=== PATIENT | male | born 1960 | race American Indian/Alaskan Native ===

== ENCOUNTER 2016-12-26 06:55 | Inpatient (IN) | payer MEDICAID ==
[2016-12-26] MEDS ORDERED: VITAMIN B-1 100 MG, FOLVITE 1 MG, INFUVITE 10 ML in NACL 0.9% 1000 ML 1,000 ML IV ONE (07:36)
[2016-12-26] MEDS ORDERED: ATIVAN IV ONE (07:36)
--- NOTE | 2016-12-26 07:52 | XRay Report ---
AP CHEST: HISTORY: Hypertension The lungs are hyperinflated consistent with moderate emphysema. No obvious infiltrate, mass, pleural effusion or pneumothorax. Normal heart and mediastinal structures. Normal bony thorax. IMPRESSION: Emphysema unchanged since 11/29/15. No acute process noted.
[2016-12-26 08:05] LABS: Hematocrit 42.6 % (35.5-45.6); Hemoglobin 14.4 gm/dl (11.8-15.2); Mean Corpuscular HGB Conc 34 % (32-34); Mean Corpuscular Hemoglobin 32 pg (28-32); Mean Corpuscular Volume 96 fl (84-94); Platelet Count 159 K/mm3 (140-440); Red Blood Count 4.45 M/mm3 (3.65-5.03); Red Cell Distribution Width 14.6 % (13.2-15.2); White Blood Count 8.1 K/mm3 (4.5-11.0)
[2016-12-26 08:18] LABS: INR 0.96 (0.87-1.13)
[2016-12-26 08:19] LABS: Partial Thromboplastin Time 27.5 Sec. (24.2-36.6)
[2016-12-26] MEDS ORDERED: NACL 0.9% 1000 ML 1,000 ML IV ONE ×2 (08:30→11:16)
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
[2016-12-26] MEDS ORDERED: D50W (25GM) IV ONE (08:59)
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
[2016-12-26 09:19] LABS: Blastocytes % (Manual) 0 %
[2016-12-26 09:20] LABS: Basophils % (Manual) 0 % (0.0-1.8); Elliptocytes Few; Eosinophils % (Manual) 0 % (0.0-4.3); Poikilocytosis 1+; Total Cells Counted Percent 0
[2016-12-26 09:21] LABS: Alanine Aminotransferase 58 units/L (7-56); Albumin 4.5 g/dL (3.9-5); Albumin/Globulin Ratio 1.1 %; Alkaline Phosphatase 69 units/L (35-129); Anion Gap 31 mmol/L; Blood Urea Nitrogen 15 mg/dL (9-20); Calcium 8.7 mg/dL (8.4-10.2); Carbon Dioxide 16 mmol/L (22-30); Chloride 102.6 mmol/L (98-107); Diff Status Complete; Glucose 95 mg/dL (75-100); Hypochromasia Rare; Platelet Estimate Consistent w Auto; Potassium 4.7 mmol/L (3.6-5.0); Sodium 145 mmol/L (137-145); Stomatocytes 1+; Target Cells 1+; Total Protein 8.6 g/dL (6.3-8.2)
[2016-12-26] MEDS ORDERED: KEPPRA 1,000 MG/NS 0.75% 100ML 1,000 MG/100 ML BAG IV ONE (09:25)
[2016-12-26] MEDS ORDERED: ROCEPHIN/NS 1 GM/50 ML 1 GM/50 ML BAG IV ONE (09:26)
[2016-12-26 09:33] LABS: Urine Drugs of Abuse Note Disclamer
[2016-12-26] MEDS ORDERED: D5NS 1,000 ML IV SCH (10:00)
[2016-12-26] MEDS ORDERED: FLEXERIL PO PRN (10:01)
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
[2016-12-26 10:25] LABS: Bilirubin,Urine NEG (Negative); Blood,Urine SM (Negative); Ketones,Urine 20 mg/dL (Negative); Leukocyte Esterase,Urine NEG (Negative); Mucus,Urine FEW /HPF; Nitrite,Urine NEG (Negative); Protein,Urine <15 mg/dL mg/dL (Negative); RBC,Urine < 1.0 /HPF (0.0-6.0); Urobilinogen,Urine < 2.0 mg/dL (<2.0)
--- NOTE | 2016-12-26 10:38 | Admit Criteria Form ---
Admission Criteria Documentation: GENERAL ADMISSION CRITERIA (Place 'X' for any and all applicable criteria): Admission is indicated for ANY ONE of the following: [X ]I. Hemodynamic instability as indicated by ANY ONE of the following(1)(2 )(3)(4)(5): [ ]a) Vital sign abnormality not readily corrected by appropriate treatment within 12 to 24 hours indicated by ANY ONE of the following: [ ]i) Hypotension [ ]ii) Symptomatic Tachycardia unresponsive to treatment (eg , analgesia, fluids, sedation as indicated) [ ]iii) Orthostatic vital sign changes unresponsive to treatment (eg, fluids) [X ]b) Vital sign abnormality that is severe indicated by ANY ONE of the following: [X ]i) Inadequate perfusion indicated by ANY ONE of the following: [X ]1) Lactic acidosis (greater than 2 mmol/L) [ ]2) New abnormal capillary refill (greater than 3 seconds) [ ]3) Other metabolic acidosis (arterial pH less than 7.35) not otherwise explained [ ]4) Reduced urine output [ ]5) Altered mental status [ ]6) Myocardial Ischemia [ ]v) Mean arterial pressure[A] less than 60 mm Hg [ ]vi) Mean arterial pressure[A] less than 70 mm Hg after 30 minutes of appropriate treatment (eg, fluid resuscitation) [ ]vii) IV inotropic or vasopressor medication required to maintain adequate blood pressure or perfusion [ ]viii) Sustained heart rate greater than 120 beats per minute in adult or child 6 years or older[B]] [ ]II. Hypertension requiring inpatient treatment as indicated by ANY ONE of the following(6)(7)(8): [ ]a) SBP greater than 220 mm Hg or DBP greater than 120 mm Hg despite treatment [ ]b) SBP greater than 140 mm Hg or DBP greater than 100 mm Hg with evidence of acute end organ damage as indicated by ANY ONE of the following: [ ]i) Encephalopathy [ ]ii) Acute renal failure as indicated by new onset of ANY ONE of the following(9)(10)(11)(12)(13): [ ]1) A 3-fold rise in serum creatinine from baseline [ ]2) Serum creatinine greater than 4 mg/dL ( 354 micromoles/L) with acute rise greater than 0.5 mg/dL (44.2 micromoles/L) [ ]3) Reduction of more than 75% in estimated glomerular filtration rate from baseline [ ]4) Estimated glomerular filtration rate less than 35 mL/min/1.73m2 (0.59 mL/sec/1.73m2) in child up to 18 years of age [ ]5) Cessation of urine output indicated by ALL of the following: [ ]A. Adequate volume status [ ]B. Inadequate urine output as indicated by ANY ONE of the following: [ ]a. Urine output less than 0.3 mL/kg/hr for 24 hours [ ]b. Anuria (urine output less than 0.1 mL/kg/hr) for 12 hours [ ]iii) Aortic dissection [ ]iv) Myocardial ischemia [ ]v) Left ventricular heart failure [ ]vi) Retinal hemorrhage [ ]vii) Other significant finding [ ]c) Hypertension in child requiring inpatient treatment as indicated by ALL of the following(14)(15)(16): [ ]i) Outpatient treatment not effective, not available, or not appropriate [ ]ii) SBP or DBP greater than 95th percentile for age [ ]iii) Evidence of acute end organ damage as indicated by ANY ONE of the following: [ ]1) Altered mental status [ ]2) Acute renal failure as indicated by new onset of ANY ONE of the following(9)(10)(11)(12)(13): [ ]A. A 3-fold rise in serum creatinine from baseline [ ]B. Serum creatinine greater than 4 mg/dL (354 micromoles/L) with acute rise greater than 0.5 mg/dL (44.2 micromoles/L) [ ]C. Reduction of more than 75% in estimated glomerular filtration rate from baseline [ ]D. Estimated glomerular filtration rate less than 35 mL/min/1.73m2 (0.59 mL/sec/1.73m2)in child up to 18 years of age [ ]E. Cessation of urine output indicated by ALL of the following: [ ]a. Adequate volume status [ ]b. Inadequate urine output as indicated by ANY ONE of the following: [ ]1) Urine output less than 0.3 mL/kg/hr for 24 hours [ ]2) Anuria (urine output less than 0.1 mL/kg/hr) for 12 hours [ ]3) Severe headache [ ]4) Visual disturbance [ ]5) Retinal hemorrhage [ ]6) Other significant finding [ ]III. Acute cardiac or peripheral ischemia as indicated by ANY ONE of the following: [ ]a) Acute coronary syndrome(17)(18) [ ]b) Acute peripheral ischemia (eg, pulseless, cool, mottled, or cyanotic extremity)(19) [ ]IV. Cardiac arrhythmias or findings of immediate concern indicated by ANY ONE of the following(20)(21): [ ]a) Heart rhythms that are inherently dangerous or unstable indicated by ANY ONE of the following(22)(23)(24): [ ]i) Resuscitated ventricular fibrillation or cardiac arrest [ ]ii) Ventricular escape rhythm [ ]iii) Sustained ventricular tachycardia (30 seconds or more of ventricular rhythm at greater than 100 beats per minute) [ ]iv) Nonsustained ventricular tachycardia and ANY ONE of the following: [ ]1) Suspected cardiac ischemia as cause or consequence of ventricular tachycardia [ ]2) In setting of acute myocarditis [ ]b) Unstable cardiac conduction defects indicated by ANY ONE of the following(24)(25)(26): [ ]i) Type II second-degree atrioventricular block [ ]ii) Third-degree atrioventricular block [ ]iii) New-onset left bundle branch block with suspected myocardial ischemia [ ]c) Any heart rhythm and ANY ONE of the following(22)(23)(27)(28)( 29): [ ] i) Continuous long-term ECG monitoring needed (eg, initiation of drug requiring monitoring for more than 24 hours) [ ] ii) Patient has automatic implanted cardioverter defibrillator that is repeatedly firing, malfunctioning, or in need of immediate adjustment of settings beyond the scope of ambulatory or observation care. [ ]d) Heart rhythms of concern due to ANY ONE of the following: [ ]i) Hypotension [ ]ii) Respiratory distress [ ]iii) Association with other significant symptoms (eg, bradycardia with syncope or ongoing dizziness, supraventricular tachycardia with chest pain) (27)(28) (30) [ ] V. Severe heart failure as indicated by ANY ONE of the following ( 31)(32): [ ]a) Respiratory distress [ ]b) Hypotension [ ]c) Anasarca (refractory to outpatient therapy) [ ]d) Cardiac arrhythmias of immediate concern [ ]e) Myocardial ischemia [ ]. Respiratory abnormalities, including ANY ONE of the following(33)(34) (35)(36): [ ]a) Respiratory rate greater than 30 breaths per minute unresponsive to treatment [A] [ ]b) New saturation of arterial oxygen less than 90% [ ]c) New partial pressure of carbon dioxide greater than 44 mm Hg ( 5.9 kPa) [ ]d) Supplemental oxygen or respiratory treatments needed that are new or not performable at other levels of care [ ]e) New-onset cyanosis [ ]f) Inability to protect airway [ ]g) Chronic lung disease with severe deterioration (not responsive to emergency and observation care treatment as appropriate) as indicated by ANY ONE of the following(34)(36 ): [ ]i) SaO2 5% below baseline in patient with chronic hypoxemia [ ]ii) New requirement for supplemental oxygen to keep SaO2 at baseline or acceptable level [ ]iii) Required supplemental oxygen performable only in acute inpatient setting [ ]iv) Severe airflow or ventilation abnormalities [ ]v) Previously mobile patient unable to walk between rooms [ ]vi Inability to eat or sleep due to dyspnea [ ]vii) Rapid rate of exacerbation onset [ ]viii) Altered mental status ]VII. Severe airflow or ventilation abnormalities (not responsive to emergency and observation care treatment as appropriate) as indicated by ANY ONE of the following(33)(34)(35)(37): [ ]a) PCO2 greater than 42 mm Hg (5.6 kPa) and pH less than 7.35 (new ) [ ]b) Documented PCO2 increased more than 5 mm Hg (0.7 kPa) from disease baseline [ ]c) Airflow measurements [B] less than 60% of previous best or predicted (eg, peak expiratory flow rate less than 300 L/minute) despite intensive emergent treatment [C] [ ]d) Required respiratory treatments that are performable only in acute inpatient setting [ ]VIII. Impending or actual respiratory arrest ( Also use Respiratory Failure GRG for severe respiratory disease and long-term mechanical ventilation patients) [ ]IX. Neurologic abnormalities, including ANY ONE of the following: [ ]a) New findings that suggest ANY ONE of the following: [ ]i) EQUIPMENT INSTALLER infection(38) [ ]ii) Cerebral bleeding, ischemia, or vasospasm(39)(40) [ ]iii) Increased intracranial pressure, hydrocephalus, or cerebral edema(41)(42)(43) [ ]iv) Spinal cord injury(44) [ ]b) Uncontrolled seizures(45) [ ]c) New-onset coma (eg, Beaumont coma scale score less than 9) or unexplained abnormal mental status (eg, Traci coma scale score less than 14) [D](41)(46)(47) [ ]X. New-onset severe neurologic findings requiring inpatient care; examples include(42)(48)(49): [ ]a) Papilledema [ ]b) Cerebral edema [ ]c) Mass effect on CT scan [ ]XI. Suspected acute intra-abdominal process with peritoneal signs, abdominal mass, or similar findings (50)(51)(52) [ ]XII. Severe physiologic disorder remaining after emergency or observation level care (as appropriate) as indicated by ANY ONE of the following (53): [ ]a) Significant dehydration [ ]b) Diabetic ketoacidosis [ ]c) Hyperglycemic hyperosmolar state (eg, osmolality greater than 320 mOsm/kg (mmol/kg) [ ]d) Hypoglycemia [ ]e) Other (new) acid-base disorder with pH less than 7.35 or greater than 7.5(54) [ ]f) Thyroid storm (55) [ ]g) Myxedema coma (55) [ ]XIII. Abdominal abnormalities with ANY ONE of the following(56)(57): [ ]a) Absent bowel sounds with complete ileus [ ]b) Signs of intestinal obstruction or peritonitis [E] [ ]c) Nausea and vomiting that cannot be controlled with outpatient or observation care [ ]XIV. Acute renal failure as indicated by new onset of ANY ONE of the following(9)(10)(11)(12)(13): [ ]a) A 3-fold rise in serum creatinine from baseline [ ]b) Serum creatinine greater than 4 mg/dL (354 micromoles/L) with acute rise greater than 0.5 mg/dL (44.2 micromoles/L) [ ]c) Reduction of more than 75% in estimated glomerular filtration rate from baseline [ ]d) Estimated glomerular filtration rate less than 35 mL/min/ 1.73m2 (0.59 mL/sec/1.73m2) in child up to 18 years of age [ ]e) Cessation of urine output indicated by ALL of the following: [ ]i) Adequate volume status [ ]ii) Inadequate urine output as indicated by ANY ONE of the following: [ ]1) Urine output less than 0.3 mL/kg/hr for 24 hours [ ]2) Anuria (urine output less than 0.1 mL/kg/hr) for 12 hours [ ]XV. Significant uremic complications as indicated by ANY ONE of the following(58)(59)(60): [ ]a) Outpatient therapy is ineffective or not feasible for ANY ONE of the following: [ ]i) Severe heart failure [ ]ii) Severehypertension [ ]iii) Pleural effusion [ ]iv) Pericarditis or pericardial effusion [ ]b) Cardiac arrhythmias of immediate concern [ ]c) Intractable nausea or vomiting [ ]d) Recurrent seizures [ ]e) Encephalopathy [ ]f) Bleeding abnormalities (eg, platelet dysfunction) with active (eg, gastrointestinal) bleeding [ ]g) Dialysis indicated before long-term access or ambulatory arrangements can be made [ ]h) Significant metabolic or electrolyte abnormalities (eg, severe acidosis or hyperkalemia) [ ]XVI. High fever or other high-risk infection situation as indicated by ANY ONE of the following(61)(62)(63)(64): [ ]a) Outpatient and observation care antimicrobial treatment unavailable, not effective, or not appropriate [ ]b) Documented bacteremia [ ]c) Temperature greater than 40.5 degrees C (104.9 degrees F) ( oral) [ ]d) Temperature greater than 39.5 degrees C (103.1 degrees F) ( oral) or less than 36 degrees C (96.8 degrees F) (rectal) that does not respond to e treatment and observation care [ ] XVII. Temperature less than 95 degrees F (35 degrees C)(rectal)(65) [ ] XVIII. Severe nutritional abnormalities as indicated by ALL of the following (66)(67): [ ]a) Inability to tolerate or establish sufficient oral or other enteral nutrition in outpatient setting [ ]b) Parenteral nutrition regimen need that must be implemented on inpatient basis [ ] XIX. Severe electrolyte abnormalities indicated by ALL of the following(68) (69)(70): [ ]a) Electrolytes and associated findings are not as expected for patient baseline or acceptable treatment effects. [ ]b) Severe abnormalities indicated by ANY ONE of the following: [ ]i) Sodium less than 130 mEq/L (mmol/L) (new) [ ]ii)Sodium less than 135 mEq/L (mmol/L) with ANY ONE of the following: [ ]1) Uncorrectable (to near normal or chronic baseline) after trial of outpatient and emergency treatment [ ]2) Altered mental status [ ]3) Seizures [ ]4) Severe medical etiology requiring inpatient management (eg, heart failure, hypovolemia) [ ]iii) Sodium greater than 155 mEq/L (mmol/L) [ ]iv) Sodium greater than 150 mEq/L (mmol/L) with ANY ONE of the following: [ ]1) Uncorrectable (to near normal or chronic baseline) with outpatient and emergency treatment [ ]2) Altered mental status [ ]3) Seizures [ ]4) Severe medical etiology (eg, hypovolemia, diabetes insipidus) [ ]v) Potassium less than 2.5 mEq/L (mmol/L) despite outpatient and emergency treatment [ ]vi) Potassium less than 3 mEq/L (mmol/L) with ANY ONE of the following: [ ]1) Weakness [ ]2) Cardiac abnormality (eg, arrhythmia, conduction disturbance) [ ]3) Cardiac ischemia [ ]4) Ileus [ ]5) Ongoing medical cause requiring inpatient management (eg, acute renal wasting or SIADH) [ ]6) Other severe symptoms [ ]vii) Potassium greater than 6.5 mEq/L (mmol/L) [ ]viii) Potassium greater than 5 mEq/L (mmol/L) with ANY ONE of the following: [ ]1) Uncorrectable (to near normal or chronic baseline) with outpatient and emergency treatment [ ]2) Severe ECG findings [F] [ ]3) Acute worsening of renal failure (creatinine greater than 2.5 mg/dL (221 micromoles/L) or significant elevation for age and size) [ ]4) Severe weakness [ ]5) Severe medical etiology (eg, hemolysis, infection, drug overdose) [ ]ix) Calcium less than 7 mg/dL (1.75 mmol/L) despite outpatient and emergency treatment (72) [ ]x) Calcium less than 8 mg/dL (2 mmol/L) with significant symptoms or findings; examples include(72): [ ]1) Altered mental status [ ]2) Muscle spasms [ ]3) Seizures [ ]4) Breathing difficulty [ ]5) Cardiac abnormality (eg, arrhythmia or conduction disturbance) [ ]xi) Calcium greater than 14 mg/dL (3.5 mmol/L)(72) [ ]xii) Calcium greater than 12 mg/dL (3 mmol/L) with ANY ONE of the following(72): [ ]1) Uncorrectable (to near normal or chronic baseline) with outpatient and emergency treatment [ ]2) Significant dehydration or hypovolemia as indicated by ALL of the following(70)(73)(74): [ ]A. Not resolved with initial treatments [ ]B. Clinically significant dehydration as indicated by ANY ONE of the following: [ ]a. Vomiting refractory to outpatient treatment (ie, precluding oral rehydration) [ ]b. Inability to drink [ ]c. Hypernatremia or other electrolyte abnormality unable to be corrected with outpatient and emergency treatment [ ]d. Failure to remain hydrated with outpatient therapy [ ]e. Reduced urine output [ ]f. Hypotension [ ]g. Serious cause for dehydration requiring acute hospitalization (eg, bowel obstruction, increased intracranial pressure, infectious cause) [ ]h. Child with ANY ONE of the following(75): [ ]1) Severe abdominal tenderness [ ]2) Adequate care not available at home [ ]3) Severe dehydration ( greater than 9% loss of body weight) [ ]4) Significant symptoms or findings; examples include: [ ]A. Altered mental status [ ]B. Cardiac abnormality (eg, arrhythmia, conduction disturbance) [ ]C. Malignant etiology requiring inpatient treatment [ ]xiii) Phosphorus less than 1 mg/dL (0.32 mmol/L) [ ]xiv) Phosphorus less than 1.5 mg/dL (0.48 mmol/L) with ANY ONE of the following: [ ]1) Patient unresponsive to outpatient and emergency treatment [ ]2) Significant symptoms or findings; examples include: [ ]A. Weakness [ ]B. Altered mental status [ ]C. Breathing difficulty [ ]D. Seizures [ ]E. Rhabdomyolysis [ ]xv) Phosphorus greater than 10 mg/dL (3.2 mmol/L) [ ]xvi) Phosphorus greater than 4.5 mg/dL (1.45 mmol/L) (new) with ANY ONE of the following: [ ]1) Severe medical etiology (eg, crush injury, acute renal failure) [ ]2) Associated hypocalcemia with significant findings; examples include: [ ]A. Neurologic symptoms [ ]B. Altered mental status [ ]C. Muscle spasms [ ]D. Seizures [ ]E. Breathing difficulty [ ]F. Cardiac abnormality (eg, arrhythmia, conduction disturbance) [ ]xvii) Magnesium less than 1 mg/dL (0.41 mmol/L) [ ]xviii) Magnesium less than 1.5 mg/dL (0.62 mmol/L) with ANY ONE of the following: [ ]1) Patient unresponsive to outpatient and emergency treatment [ ]2) Associated hypocalcemia with significant findings; examples include: [ ]A. Altered mental status [ ]B. Muscle spasms [ ]C. Seizures [ ]D. Breathing difficulty [ ]E. Cardiac abnormality (eg, arrhythmia , conduction disturbance) [ ]3) Associated hypokalemia (potassium less than 3 mEq/L (mmol/L)) with risk of arrhythmia [ ]xix) Magnesium greater than 4 mEq/L (2 mmol/L) [ ]xx) Magnesium greater than 2.5 mEq/L (1.25 mmol/L) with significant symptoms or findings; examples include: [ ]1) Weakness [ ]2) Altered mental status [ ]3) Cardiac abnormality (eg, arrhythmia, conduction disturbance) [ ]4) Breathing difficulty [ ]5) Severe medical etiology (eg, renal failure, hypovolemia) [ ]xxi) Uric acid greater than 20 mg/dL (1190 micromoles/L)(76) [ ]xxii) Uric acid greater than 8 mg/dL (476 micromoles/L) with significant symptoms or findings of tumor lysis syndrome; examples include(76): [ ]1) Creatinine greater than 1.5 times upper limit of normal [ ]2) Cardiac abnormality (eg, arrhythmia, conduction disturbance) [ ]3) Seizure [ ]XX. Acute blood loss causing significant abnormality as indicated by ANY ONE of the following(77)(78): [ ]a) Hemoglobin less than 10 g/dL (100 g/L) (not baseline) [ ]b) Hematocrit less than 30% (0.30) (not baseline) [ ]c) Repeat hematocrit decreased more than 2% (0.02) [ ]d) Uncontrolled bleeding [ ]XXI. Severe anemia indicated by ANY ONE of the following(78)(79): [ ]a) Altered mental status [ ]b) Chest pain [ ]c) Exertional dyspnea [ ]d) Syncope [ ]e) Other findings suggesting inadequate perfusion [ ]f) Treatment with transfusion or volume replacement is ineffective at resolving ANY ONE of the following [G]: [ ]i) Tachycardia for age [ ]ii) Orthostatic vital sign changes as indicated by ANY ONE of the following(80): [ ]1) Fall in SBP of 20 mm Hg or more 1 to 3 minutes after patient sits or stands from recumbent position [ ]2) Fall in DBP of 10 mm Hg or more 1 to 3 minutes after patient sits or stands from recumbent position [ ]XXII. High-risk low platelet count as indicated by ANY ONE of the following( 81)(82): [ ]a) Severe or life-threatening bleeding (eg, intracranial, major gastrointestinal, or extensive mucosal bleeding), with any reduced platelet count [ ]b) Platelet count less than 20,000/mm3 (20 x109/L) with any active bleeding [ ]c) Platelet count less than 10,000/mm3 (10 x109/L) with minor purpura or petechiae [ ]d) Platelet count less than 5000/mm3 (5 x109/L) [ ]e) Low platelet count with hemolytic anemia [ ]XXIII. Disseminated intravascular coagulation(77)(83) [ ]XXIV. Severe adverse drug or systemic toxin reaction requiring inpatient treatment; examples include(84)(85): [ ]a) Serotonin syndrome(86) [ ]b) Neuroleptic malignant syndrome(86) [ ]c) Cholinergic syndrome with severe symptoms (eg, bronchorrhea, weakness, mental status changes, seizures) [ ]d) Sympathetic syndrome with severe symptoms (eg, seizures, mental status changes, cardiac dysrhythmias) [ ]e) Anticholinergic syndrome [ ]XXV. Severe pain requiring acute inpatient management as indicated by ALL of the following (87)(88)(89): [ ]a) Continuous or frequent (eg, every 2 to 4 hours) parenteral analgesics required [H] [ ]b) Rapid improvement expected from treatment or acute intervention (eg, surgery, anesthesia procedure) [ ]XXVI.Severe behavioral health issues judged unmanageable at a lower level of care (eg, residential) in a patient who is ANY ONE of the following(91) [ ]a) Acutely suicidal [ ]b) A danger to self (eg, self-mutilating or suicidal behavior) [ ]c) A danger to others (eg, assaultive or homicidal behavior) [ ]d) Incapacitated because of grave disability (eg, inability to provide for self at lower level of care) (92) [ ]XXVII. Inpatient monitoring needed; examples include(1)(3)(87)(93)(94)(95)(96 ): [ ]a) Vital signs, neurologic signs, or vascular checks more frequently than every 4 hours [ ]b) Cardiac or respiratory monitoring beyond the scope (eg, over 24 hours) of observation care [ ]c) Pulmonary artery catheter monitoring [ ]d) Suspected compartment syndrome(97) (98) [ ]e) Cerebral bleeding, hydrocephalus, or vasospasm monitoring [ ]f) Increased intracranial pressure or cerebral edema monitoring [ ]g) monitoring [ ]XXVIII. Treatment requiring inpatient care; examples include: [ ]a) IV fluid to replace significant ongoing losses (greater than 3 L/m2 per day)(53) [ ]b) High concentration oxygen (greater than 40%)(33)(99)(100) [ ]c) Frequent respiratory therapy (more frequently than every 4 hours) to maintain airflow rates greater than 60% of baseline(33)(99)(100) [ ]d) Epidural analgesia(87) [ ]e) IV anticoagulation, vasoactive, or antiarrhythmic medication(19 )(23) [ ]f) Acute thrombolytics (generally require 24 hours of observation )(101)(102) [ ]XXIX. Emergency procedures needed; examples include: [ ]a) Emergency inpatient surgery [ ]b) Temporary pacemaker placement(103) [ ]c) Chest tube placement with active evacuation (eg, suction, drainage)(104) [ ]d) Emergent cardioversion(105) [ ]e) Emergent cardiac or vascular procedures (eg, cardiac catheterization, angioplasty) (17)(18) [ ]f) Emergent dialysis access placement and institution(10)(106) [ ]g) Emergent pericardiocentesis(107) [ ]h) Emergent plasmapheresis or leukapheresis(83) [ ]i) Emergent tracheostomy The original [employer] content created by [employer] has been revised. The portions of the content which have been revised are identified through the use of italic text or in bold, and [employer] has neither reviewed nor approved the modified material. All other unmodified content is copyright [employer]. Please see references footnoted in the original [employer] edition 2016 Admission Criteria Met: Yes
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
[2016-12-26] MEDS ORDERED: ATIVAN IV PRN ×4 (10:55→11:00)
[2016-12-26] MEDS ORDERED: DULCOLAX PR PRN (11:00)
[2016-12-26] MEDS ORDERED: MILK OF MAGNESIA PO PRN (11:00)
[2016-12-26] MEDS ORDERED: ZOFRAN IV PRN (11:00)
[2016-12-26] MEDS ORDERED: TYLENOL PO PRN (11:00)
[2016-12-26] MEDS ORDERED: LEVAQUIN 750MG/150ML 750 MG/150 ML BAG IV ONE ×2 (11:07→11:32)
[2016-12-26] MEDS ORDERED: NACL 0.9% 1000 ML 1,000 ML ONE (11:30)
[2016-12-26] MEDS ORDERED: BABY ASPIRIN ONE (11:31)
[2016-12-26] MEDS ORDERED: LOVENOX SUB-Q ONE (11:32)
[2016-12-26 11:35] LABS: Salicylate < 0.3 mg/dL (2.8-20.0)
[2016-12-26] MEDS: BABY ASPIRIN PO SCH (11:45)
[2016-12-26] MEDS: LOVENOX SUB-Q SCH (11:45)
[2016-12-26] MEDS ORDERED: VANCOMYCIN 1,500 MG in NACL 0.9% 500 ML 500 ML IV ONE (12:00)
[2016-12-26] MEDS ORDERED: VANCOMYCIN PHARMACY TO DOSE IV SCH (12:00)
[2016-12-26] MEDS ORDERED: ATIVAN ONE (12:46)
[2016-12-26] MEDS: ERYTHROMYCIN OPHTH OINT OD SCH (20:09)
[2016-12-26] MEDS ORDERED: KEPPRA 1,000 MG/NS 0.75% 100ML 1,000 MG/100 ML BAG IV SCH (22:00)
[2016-12-27] MEDS: KEPPRA 1,000 MG in D5W 100 ML IV SCH ×2 (00:03→10:55)
[2016-12-27] MEDS ORDERED: VANCOMYCIN/NS 1 GM/250 ML 1 GM/250 ML BAG IV SCH (02:00)
[2016-12-27] MEDS: ERYTHROMYCIN OPHTH OINT OD SCH ×3 (02:51→14:18)
[2016-12-27 07:52] LABS: Basophils % (Auto) 0.5 % (0.0-1.8); Eosinophils % (Auto) 0.8 % (0.0-4.3); Hematocrit 37.2 % (35.5-45.6); Hemoglobin 12.5 gm/dl (11.8-15.2); Mean Corpuscular HGB Conc 34 % (32-34); Mean Corpuscular Hemoglobin 31 pg (28-32); Mean Corpuscular Volume 93 fl (84-94); Platelet Count 127 K/mm3 (140-440); White Blood Count 3.6 K/mm3 (4.5-11.0)
[2016-12-27 07:58] LABS: Alanine Aminotransferase 34 units/L (7-56); Albumin 3.2 g/dL (3.9-5); Albumin/Globulin Ratio 1.1 %; Alkaline Phosphatase 49 units/L (35-129); Anion Gap 18 mmol/L; Blood Urea Nitrogen 9 mg/dL (9-20); Calcium 7.7 mg/dL (8.4-10.2); Carbon Dioxide 20 mmol/L (22-30); Chloride 104.6 mmol/L (98-107); Glucose 113 mg/dL (75-100); Potassium 3.6 mmol/L (3.6-5.0); Sodium 139 mmol/L (137-145); Total Protein 6.1 g/dL (6.3-8.2)
[2016-12-27] MEDS ORDERED: ZESTRIL PO SCH (10:00)
[2016-12-27] MEDS: LOVENOX SUB-Q SCH (10:53)
[2016-12-27] MEDS: BABY ASPIRIN PO SCH (10:53)
[2016-12-27] MEDS ORDERED: NORCO 5/325 PO PRN (11:36)
[2016-12-27] MEDS ORDERED: PNEUMOVAX 23 IM ONE (12:00)
[2016-12-27] MEDS ORDERED: DILANTIN PO SCH ×3 (12:00→22:00)
--- NOTE | 2016-12-27 12:39 | Consultation ---
History of Present Illness Consult date: 12/27/16 Requesting physician: CHEN GODOY Reason for Consult: seizure Past History Past Medical History: hypertension, seizures (on Dilantin) Past Surgical History: No surgical history Social history: alcohol abuse, other (KARIME) Family history: other (KARIME) Medications and Allergies Allergies Allergy/AdvReac Type Severity Reaction Status Date / Time hydrocodone bitartrate AdvReac Nausea Verified 03/16/13 17:18 [From Lortab] propoxyphene napsylate AdvReac Nausea Verified 03/16/13 17:18 [From Darvocet-N 100] Home Medications Medication Instructions Recorded Confirmed Last Taken Type Lisinopril [Zestril TAB] 40 mg PO QDAY 30 Days 04/15/13 12/26/16 12/19/16 08:00 Rx Ondansetron [Zofran Odt] 8 mg PO TID PRN #10 tab.rapdis 04/15/13 12/26/16 08:00 Rx Phenytoin [Dilantin] 100 mg PO QAM #30 capsule 04/15/13 12/26/16 12/19/16 08:00 Rx Phenytoin [Dilantin] 200 mg PO QHS 30 Days 04/15/13 12/26/16 12/19/16 22:00 Rx oxyCODONE /ACETAMINOPHEN [Percocet 1 - 2 tab PO Q6HR PRN #30 tablet 04/15/1305/0411/26/16 08:00 Rx 5/325 mg] Acetaminophen/Codeine [Tylenol #3] 1 tab PO Q6H PRN #20 tab 11/23/14 12/26/16 Unknown Rx Ibuprofen [Motrin] 600 mg PO Q8H PRN #60 tablet 11/23/14 12/26/16 Unknown Rx Lisinopril [Zestril TAB] 40 mg PO QDAY #90 tablet 11/23/14 12/26/16 12/19/16 08: 00 Rx Cyclobenzaprine [Flexeril] 10 mg PO TID PRN #30 tablet 08/30/15 12/26/16 08:00 Rx oxyCODONE /ACETAMINOPHEN [Percocet 1 tab PO Q6HR PRN #30 tablet 08/30/15 Unknown Rx 5/325] Erythromycin [Erythromycin Ophth 1 inch OD TID #1 tube 11/29/15 12/26/16 Unknown Rx Oint] traMADol [Ultram] 50 mg PO Q4HR PRN #30 tablet 11/29/15 12/26/16 Unknown Rx Active Meds: Active Medications Acetaminophen (Tylenol) 650 mg PO Q4H PRN PRN Reason: Pain MILD(1-3)/Fever >100.5/BLACK Acetaminophen/Hydrocodone Bitart ([place] 5/325) 2 each PO Q6H PRN PRN Reason: Pain, Moderate (4-6) Aspirin (Baby Aspirin) 81 mg PO QDAY [facility] Last Admin: 12/27/16 10:53 Dose: 81 mg Bisacodyl (Dulcolax) 10 mg ID QDAY PRN PRN Reason: Constipation unrelieved by MOM Cyclobenzaprine HCl (Flexeril) 10 mg PO TID PRN PRN Reason: Muscle Spasm Enoxaparin Sodium (Lovenox) 40 mg SUB-Q QDAY [facility] Last Admin: 12/27/16 10:53 Dose: 40 mg Erythromycin (Erythromycin Ophth Oint) 1 applic OD TID [facility] Last Admin: 12/27/16 10:53 Dose: 1 applic Dextrose/Sodium Chloride (D5ns) 1,000 mls @ 75 mls/hr IV DIRECT [facility] Levetiracetam (Keppra) 500 mg PO BID [facility] Lisinopril (Zestril) 40 mg PO QDAY [facility] Last Admin: 12/27/16 10:53 Dose: 40 mg Lorazepam (Ativan) 1 mg IV Q4H PRN PRN Reason: Seizures Lorazepam (Ativan) 2 mg IV Q1HR PRN PRN Reason: CIWA-Ar 8-15 Last Admin: 12/26/16 12:49 Dose: 2 mg Lorazepam (Ativan) 4 mg IV Q1HR PRN PRN Reason: CIWA-Ar 16-25 Lorazepam (Ativan) 4 mg IV Q15MIN PRN PRN Reason: CIWA-Ar >25 Magnesium Hydroxide (Milk Of Magnesia) 30 ml PO Q4H PRN PRN Reason: Constipation Ondansetron HCl (Zofran) 4 mg IV Q8H PRN PRN Reason: N/V unrelieved by Reglan Phenytoin (Dilantin) 100 mg PO BID [facility] Physical Examination - Vital Signs Vital Signs: Vital Signs Pulse Resp 101 H 14 12/26/16 07:00 12/26/16 07:00 Results - Laboratory Findings CBC and BMP: 12/27/16 07:10 12/27/16 07:10 Abnormal Lab Findings: Abnormal Labs 12/26/16 12/26/16 12/26/16 10:01 10:42 21:27 WBC Plt Count [place] % (Auto) Lymph # Seg Neutrophils % Carbon Dioxide Glucose POC Glucose 111 H 107 H Lactic Acid 6.40 H* Calcium AST Total Protein Albumin 12/27/16 12/27/16 07:10 07:10 WBC 3.6 L Plt Count 127 L [place] % (Auto) 8.9 H Lymph # 0.7 L Seg Neutrophils % 70.2 H Carbon Dioxide 20 L Glucose 113 H POC Glucose Lactic Acid Calcium 7.7 L AST 64 H Total Protein 6.1 L D Albumin 3.2 L
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
[2016-12-27 19:01] VITALS: BP 106/72
[2016-12-27] MEDS ORDERED: KEPPRA PO SCH (22:00)
[2016-12-28] MEDS ORDERED: DILANTIN PO SCH (10:00)
== END 2016-12-27 19:15 | disposition home or self-care (01) | DRG 872 ==
LOC: ED 06:55 → 3A 09:53 → 4A 11:47
PROVIDERS: ADMIT Internal Medicine; ATTEND Internal Medicine
PROC: 3E0234Z Introduction of Serum, Toxoid and Vaccine into Muscle, Percutaneous Approach (ICD-10-PCS; principal; 2016-12-27)
DX: A41.9 Sepsis, unspecified organism (principal); F10.239 Alcohol dependence with withdrawal, unspecified; G40.909 Epilepsy, unspecified, not intractable, without status epilepticus; I10 Essential (primary) hypertension; E16.2 Hypoglycemia, unspecified; I16.0 Hypertensive urgency; F17.210 Nicotine dependence, cigarettes, uncomplicated; K76.9 Liver disease, unspecified; V29.9XXA Motorcycle rider (driver) (passenger) injured in unspecified traffic accident, initial encounter; Y93.89 Activity, other specified; Y92.89 Other specified places as the place of occurrence of the external cause; Y99.8 Other external cause status; Z88.8 Allergy status to other drugs, medicaments and biological substances; Z88.6 Allergy status to analgesic agent; Z79.899 Other long term (current) drug therapy; Z23 Encounter for immunization
CPT/HCPCS: 36415; 70450; 71010; 72125; 72128; 72131; 80053; 80185; 80307; 80320; 81001; 82140; 82962; 83735; 84443; 85007; 85025; 85610; 85730; 87040; 87086; 90732; 93005; 93010; 96365; 96366; 96368; 96375; 99291; G0480; J0696; J1650; J1953; J1956; J2060; J3370; J3411; J7030; J7040

== ENCOUNTER 2017-04-14 19:12 | Emergency (ER) | payer MEDICAID ==
[2017-04-14 19:21] VITALS: BP 138/91
[2017-04-14 19:50] LABS: Basophils % (Auto) 0.9 % (0.0-1.8); Eosinophils % (Auto) 7.9 % (0.0-4.3); Hematocrit 39.3 % (35.5-45.6); Hemoglobin 13.5 gm/dl (11.8-15.2); Mean Corpuscular HGB Conc 34 % (32-34); Mean Corpuscular Hemoglobin 32 pg (28-32); Mean Corpuscular Volume 94 fl (84-94); Platelet Count 157 K/mm3 (140-440); Red Blood Count 4.16 M/mm3 (3.65-5.03); Red Cell Distribution Width 14.4 % (13.2-15.2); White Blood Count 4.3 K/mm3 (4.5-11.0)
[2017-04-14 20:00] LABS: INR 0.91 (0.87-1.13)
[2017-04-14 20:01] LABS: Partial Thromboplastin Time 27.8 Sec. (24.2-36.6)
[2017-04-14 20:03] LABS: Anion Gap 18 mmol/L; BUN/Creatinine Ratio 13; Blood Urea Nitrogen 10 mg/dL (9-20); Calcium 8.9 mg/dL (8.4-10.2); Carbon Dioxide 26 mmol/L (22-30); Chloride 93.8 mmol/L (98-107); Glucose 81 mg/dL (75-100); Sodium 134 mmol/L (137-145)
--- NOTE | 2017-04-16 13:10 | ED Elopement Review ---
ED Pt Elopement review - Results review Lab results: Laboratory Tests 04/14/17 04/14/17 04/14/17 19:32 19:32 19:32 WBC 4.3 L RBC 4.16 Hgb 13.5 Hct 39.3 MCV 94 MCH 32 MCHC 34 RDW 14.4 Plt Count 157 Lymph % (Auto) 28.0 [place] % (Auto) 9.1 H Eos % (Auto) 7.9 H Baso % (Auto) 0.9 Lymph # 1.2 [place] # 0.4 Eos # 0.3 Baso # 0.0 Seg Neutrophils % 54.1 Seg Neutrophils # 2.3 PT 12.7 INR 0.91 APTT 27.8 Sodium 134 L Potassium 4.0 Chloride 93.8 L Carbon Dioxide 26 Anion Gap 18 BUN 10 Creatinine 0.8 Estimated GFR > 60 BUN/Creatinine Ratio 13 Glucose 81 Calcium 8.9 - Call Back decision Pt Call Back Decision: No action required
== END 2017-04-15 08:55 | disposition left against medical advice (07) ==
LOC: ED 19:12
DX: Z53.21 Procedure and treatment not carried out due to patient leaving prior to being seen by health care provider (principal)
CPT/HCPCS: 36415; 80048; 85025; 85610; 85730

== ENCOUNTER 2017-06-13 13:48 | Emergency (ER) | payer MEDICAID ==
[2017-06-13 14:19] VITALS: BP 126/84
--- NOTE | 2017-06-13 18:17 | Emergency Department Report ---
ED Rash HPI - HPI Chief Complaint: Skin Rash Stated Complaint: INFECTION ON ARMS Time Seen by Provider: 06/13/17 18:15 Duration: 6 weeks Location: Upper Extremities, Lower Extremities Suspected Cause: Unknown Rash Symptoms: Yes Itching, No Facial Swelling, No Tongue/Oral Swelling, No Breathing Difficulties, No Choking Sensation, No Wheezing/Dyspnea, No Peeling, No Blistering, No Fever, No Lightheaded, No Malaise, No Myalgias Severity: mild Other History: 56 y.o. male presents with rash to right elbow and right orozco. States the rash has been here for 6 weeks. He thought it was an allergic reaction to something or an infection so he started taking benadryl. ED Review of Systems ROS: Stated complaint: INFECTION ON ARMS Other details as noted in HPI Constitutional: no symptoms reported, see HPI. denies: chills, diaphoresis, fever, malaise, weakness Respiratory: no symptoms reported, see HPI. denies: cough, orthopnea, shortness of breath, SOB with exertion, SOB at rest, stridor, wheezing Cardiovascular: as per HPI. denies: chest pain, palpitations, dyspnea on exertion, orthopnea, edema, syncope, paroxysmal nocturnal dyspnea Gastrointestinal: as per HPI. denies: abdominal pain, nausea, vomiting, diarrhea, constipation, hematemesis, melena, hematochezia Skin: as per HPI, rash (RUE & RLE). denies: lesions, change in color, change in hair/nails, pruritus ED Past Medical Hx - Past Medical History Hx Hypertension: Yes Hx Congestive Heart Failure: No Hx Diabetes: Yes Hx Seizures: Yes Hx Asthma: No Hx COPD: No - Surgical History Additional Surgical History: back surg. - Social History Smoking Status: Current Every Day Smoker Substance Use Type: None - Medications Home Medications: Home Medications Medication Instructions Recorded Confirmed Last Taken Type Ondansetron [Zofran Odt] 8 mg PO TID PRN #10 tab.rapdis 04/15/13 01/19/17 08:00 Rx Ibuprofen [Motrin 600 MG tab] 600 mg PO Q8H PRN #20 tablet 01/12/17 01/19/17 Unknown Rx Lisinopril [Zestril TAB] 40 mg PO QDAY 30 Days tablet 01/12/17 01/19/17 Unknown Rx Phenytoin [Dilantin] 100 mg PO QAM #30 capsule 01/12/17 01/19/17 Unknown Rx Phenytoin [Dilantin] 200 mg PO QHS 30 Days capsule 01/12/17 01/19/17 Unknown Rx Rivaroxaban [Xarelto] 15 mg PO BID #40 tablet 01/23/17 Unknown Rx Rivaroxaban [Xarelto] 20 mg PO QDAY #10 tab 01/23/17 Unknown Rx Levofloxacin [Levaquin TAB] 750 mg PO Q24HR #5 tablet 01/25/17 Unknown Rx oxyCODONE [Roxicodone TAB] 5 mg PO BID PRN #10 tablet 01/25/17 Unknown Rx Triamcinolone 0.1% [Kenalog 0.1% 1 applic TP TID #60 tube 06/13/17 Unknown Rx CREAM] Rash Exam - Exam General: Vital signs noted. No distress. Alert and acting appropriately. HEENT: No Periorbital Edema, No Conjuctival Injection, No Chemosis, No Perioral Edema, No Tongue Edema, No Uvular Edema, No Compromised Airway, No Drooling Lungs: Yes Good Air Exchange, No Wheezes, No Ronchi, No Stridor, No Cough, No Labored Respirations, No Retractions, No Use of Accessory Muscles, No Other Abnormal Lung Sounds Heart: Yes Regular, No Murmur Skin: Yes Erythema (erythematous silvery white plaques and papules to right elbow and right orozco), No Urticarial Rash, No Maculopapular Rash, No Morbilliform rash, No Bulla(e), No Excoriations, No Weeping, No Tenderness, No Edema, No Encrustations Other: Positive: Abdomen Normal, Neurologic Normal, Musculoskeletal Normal ED Course Vital Signs 06/13/17 14:13 Temperature 98.5 F Pulse Rate 86 Respiratory 15 Rate Blood Pressure 126/84 O2 Sat by Pulse 97 Oximetry ED Medical Decision Making - Differential Diagnosis Contact dermatitis Critical care attestation.: If time is entered above; I have spent that time in minutes in the direct care of this critically ill patient, excluding procedure time. ED Disposition Clinical Impression: Psoriasis Disposition: DC-01 TO HOME OR SELFCARE Is pt being admited?: No Does the pt Need Aspirin: No Condition: Stable Instructions: Psoriasis (ED) Additional Instructions: Apply skin lotion such as vaseline or aquaphor 20-30 minutes after applying steroid cream. Follow up with dermatology. Prescriptions: Triamcinolone 0.1% [Kenalog 0.1% CREAM] 1 applic TP TID #60 tube Referrals: PRIMARY CARE, [Primary Care Provider] - 3-5 Days ZOHRA RODRIGUEZ MD [Staff Physician] - 3-5 Days [facility] [Outside] - 3-5 Days Time of Disposition: 18:48 Print Language: SAO TOMEAN
== END 2017-06-13 19:35 | disposition home or self-care (01) ==
LOC: ED 13:48
DX: L40.9 Psoriasis, unspecified (principal); I10 Essential (primary) hypertension; E11.9 Type 2 diabetes mellitus without complications; R53.1 Weakness; F17.200 Nicotine dependence, unspecified, uncomplicated; Z88.8 Allergy status to other drugs, medicaments and biological substances
CPT/HCPCS: 99282

== ENCOUNTER 2017-10-09 13:50 | Emergency (ER) | payer MEDICAID ==
[2017-10-09 13:56] VITALS: BP 113/69
== END 2017-10-09 20:15 | disposition left against medical advice (07) ==
LOC: ED 13:50
DX: R53.1 Weakness (principal); Z53.21 Procedure and treatment not carried out due to patient leaving prior to being seen by health care provider

== ENCOUNTER 2019-02-12 10:40 | Inpatient (IN) | payer MEDICAID ==
[2019-02-12 11:32] LABS: Basophils % (Auto) 0.3 % (0.0-1.8); Eosinophils # (Auto) 0.1 K/mm3 (0.0-0.4); Hematocrit 42.5 % (35.5-45.6); Hemoglobin 14.6 gm/dl (11.8-15.2); Lymphocytes # (Auto) 0.7 K/mm3 (1.2-5.4); Mean Corpuscular HGB Conc 34 % (32-34); Mean Corpuscular Volume 95 fl (84-94); Monocytes # (Auto) 0.6 K/mm3 (0.0-0.8); Monocytes % (Auto) 9.5 % (0.0-7.3); Platelet Count 253 K/mm3 (140-440); Red Cell Distribution Width 14.2 % (13.2-15.2)
--- NOTE | 2019-02-12 11:41 | XRay Report ---
CHEST 1 VIEW INDICATION: Chest Pain. COMPARISON: None available. FINDINGS: Support devices: None. Heart: Normal. Pulmonary vasculature: Normal. Lungs/Pleura: A wedge-shaped pleural-based right basal lung opacity. Mild left basal subsegmental ate lectasis. Additional findings: None. IMPRESSION: 1. A wedge-shaped pleural-based right basal lung opacity suspicious for either pneumonia or a pulmona ry infarct. 2. No CHF. Signer Name: Brian Herrera MD Signed: 02/12/2019 11:36 AM Workstation Name: [id number]
--- NOTE | 2019-02-12 11:46 | Emergency Department Report ---
<MICHAEL LEWIS - Last Filed: 02/12/19 18:30> ED General Adult HPI - General Chief complaint: Chest Pain Stated complaint: CHEST PAIN/KIDNEY PROBLEM Time Seen by Provider: 02/12/19 11:22 - Related Data Home Medications Medication Instructions Recorded Confirmed Last Taken predniSONE [Deltasone] 20 mg PO QDAY 02/12/19 02/12/19 02/12/19 Previous Rx's Medication Instructions Recorded Last Taken Type Ibuprofen [Motrin 600 MG tab] 600 mg PO Q8H PRN #20 tablet 01/12/17 02/02/19 Rx Lisinopril [Zestril TAB] 40 mg PO QDAY 30 Days tablet 01/12/17 02/12/19 Rx Phenytoin [Dilantin] 200 mg PO QHS 30 Days capsule 01/12/17 02/12/19 Rx Allergies Allergy/AdvReac Type Severity Reaction Status Date / Time hydrocodone bitartrate AdvReac Nausea Verified 01/19/17 10:51 [From Lortab] propoxyphene napsylate AdvReac Nausea Verified 01/19/17 10:51 [From Darvocet-N 100] ED Past Medical Hx - Medications Home Medications: Home Medications Medication Instructions Recorded Confirmed Last Taken Type Ibuprofen [Motrin 600 MG tab] 600 mg PO Q8H PRN #20 tablet 01/12/17 02/12/19 02/02/19 Rx Lisinopril [Zestril TAB] 40 mg PO QDAY 30 Days tablet 01/12/17 02/12/19 02/12/19 Rx Phenytoin [Dilantin] 200 mg PO QHS 30 Days capsule 01/12/17 02/12/19 02/12/19 Rx predniSONE [Deltasone] 20 mg PO QDAY 02/12/19 02/12/19 02/12/19 History ED Medical Decision Making - Lab Data Result diagrams: 02/12/19 11:22 02/12/19 11:22 - Medical Decision Making Mr. Padilla is a 58-year-old male signed out to me by my colleague Dr. Farmer. Patient presents to the emergency room with bilateral flank pain. Patient states his flank pain started 2 days ago. Patient states his flank pain is radiating to his back. Patient states he feels like he is having kidney stones. Patient states pain is 10 out of 10. Patient states the pain is worse with movement and palpation Olivia states the pain is better with rest. Patient denies nausea vomiting. Patient states that he complained of chest pain but what he was speaking of was he is having lateral chest pain associated with his flank pain. Patient denies substernal chest pain. Patient denies medial chest pain. Patient denies shortness of breath. Patient denies diaphoresis. Patient's CTA chest showed bilateral pulmonary emboli with infarction. Patient remained stable in the ER. I discussed the patient is Dr. Saleem, he agreed to admit the patient to medical service for further management. Patient will be started on high-dose heparin. Critical Care Time: Yes Critical care time in (mins) excluding proc time.: 30 ED Disposition Clinical Impression: Bilateral flank pain, Bilateral pulmonary embolism, Pulmonary infarction Chest pain Qualifiers: Chest pain type: unspecified Qualified Code(s): R07.9 - Chest pain, unspecified Disposition: -09 OP ADMIT IP TO THIS HOSP Is pt being admited?: Yes Condition: Critical <URBANO SUH III - Last Filed: 02/13/19 14:10> ED General Adult HPI - General Source: patient Mode of arrival: Ambulatory Limitations: No Limitations - History of Present Illness Initial comments: Patient is a 58-year-old male presents emergency room with bilateral flank pain. Patient states his flank pain started 2 days ago. Patient states his flank pain is radiating to his back. Patient states he feels like he is having kidney stones. Patient states pain is 10 out of 10. Patient states the pain is worse with movement and palpation Olivia states the pain is better with rest. Patient denies nausea vomiting. Patient states that he complained of chest pain but what he was speaking of was he is having lateral chest pain associated with his flank pain. Patient denies substernal chest pain. Patient denies medial chest pain. Patient denies shortness of breath. Patient denies diaphoresis. -: Sudden Location: abdomen Radiation: back Severity scale (0 -10): 10 Quality: stabbing Consistency: constant Improves with: rest Worsens with: movement Associated Symptoms: chest pain (lateral rib pain). denies: confusion, cough, diaphoresis, fever/chills, headaches, loss of appetite, malaise, nausea/vomiting, rash, seizure, shortness of breath, syncope, weakness ED Review of Systems ROS: Stated complaint: CHEST PAIN/KIDNEY PROBLEM Other details as noted in HPI Constitutional: denies: chills, fever Eyes: denies: eye pain, eye discharge, vision change ENT: denies: ear pain, throat pain Respiratory: denies: cough, shortness of breath, wheezing Cardiovascular: chest pain. denies: palpitations Endocrine: no symptoms reported Gastrointestinal: abdominal pain. denies: nausea, diarrhea Genitourinary: denies: urgency, dysuria Musculoskeletal: denies: back pain, joint swelling, arthralgia Skin: denies: rash, lesions Neurological: denies: headache, weakness, paresthesias Psychiatric: denies: anxiety, depression Hematological/Lymphatic: denies: easy bleeding, easy bruising ED Past Medical Hx - Past Medical History Previous Medical History?: Yes Hx Hypertension: Yes Hx Congestive Heart Failure: No Hx Diabetes: Yes Hx Seizures: Yes Hx Asthma: No Hx COPD: No - Surgical History Additional Surgical History: back surg. - Social History Smoking Status: Current Every Day Smoker Substance Use Type: None ED Physical Exam - General Limitations: No Limitations General appearance: alert, in no apparent distress - Head Head exam: Present: atraumatic, normocephalic - Eye Eye exam: Present: normal appearance - ENT ENT exam: Present: mucous membranes moist - Neck Neck exam: Present: normal inspection - Respiratory Respiratory exam: Present: normal lung sounds bilaterally. Absent: respiratory distress - Cardiovascular Cardiovascular Exam: Present: regular rate, normal rhythm. Absent: systolic murmur, diastolic murmur, rubs, gallop - GI/Abdominal GI/Abdominal exam: Present: soft, tenderness (bilateral flank pain), normal bowel sounds - Rectal Rectal exam: Present: deferred - Extremities Exam Extremities exam: Present: normal inspection - Back Exam Back exam: Present: normal inspection - Neurological Exam Neurological exam: Present: alert, oriented X3 - Psychiatric Psychiatric exam: Present: normal affect, normal mood - Skin Skin exam: Present: warm, dry, intact, normal color. Absent: rash ED Course Vital Signs 02/12/19 02/12/19 02/12/19 11:02 11:32 12:02 Temperature 99.1 F Pulse Rate 58 L 51 L Respiratory 20 21 16 Rate Blood Pressure 158/86 Blood Pressure [Left] O2 Sat by Pulse 99 98 98 Oximetry 02/12/19 02/12/19 02/12/19 12:04 13:00 14:31 Temperature 98.7 F Pulse Rate 52 L 52 L 50 L Respiratory 22 16 19 Rate Blood Pressure 149/84 142/81 Blood Pressure 152/84 [Left] O2 Sat by Pulse 98 97 99 Oximetry 02/12/19 02/12/19 02/12/19 15:15 16:15 17:09 Temperature Pulse Rate 51 L 48 L 64 Respiratory 19 23 22 Rate Blood Pressure 130/80 126/78 126/78 Blood Pressure [Left] O2 Sat by Pulse 99 99 97 Oximetry 02/12/19 02/12/19 02/12/19 18:01 18:36 19:00 Temperature Pulse Rate 50 L 52 L Respiratory 22 16 15 Rate Blood Pressure 142/80 139/78 Blood Pressure [Left] O2 Sat by Pulse 97 99 Oximetry 02/12/19 02/12/19 02/12/19 20:03 20:11 20:21 Temperature Pulse Rate 59 L 51 L 62 Respiratory 16 20 22 Rate Blood Pressure 139/78 139/78 139/78 Blood Pressure [Left] O2 Sat by Pulse 98 98 Oximetry 02/12/19 02/12/19 02/12/19 20:31 20:41 20:51 Temperature Pulse Rate 53 L 52 L 52 L Respiratory 18 18 20 Rate Blood Pressure 139/78 139/78 139/78 Blood Pressure [Left] O2 Sat by Pulse 99 98 98 Oximetry 02/12/19 02/12/19 21:01 21:46 Temperature 97.5 F L Pulse Rate 52 L 61 Respiratory 17 16 Rate Blood Pressure 139/78 152/79 Blood Pressure [Left] O2 Sat by Pulse 99 99 Oximetry - Reevaluation(s) Reevaluation #1: CTs pending. Patient states he is comfortable at this time. 02/12/19 1754 Reevaluation #2: ct is still pending. Patient will be signed out to the [facility], Dr. Lewis for final disposition. 02/12/19 18:06 ED Medical Decision Making - Lab Data Result diagrams: 02/13/19 06:10 02/13/19 06:10 - EKG Data -: EKG Interpreted by [place] EKG shows normal: sinus rhythm, axis, intervals, QRS complexes, ST-T waves Rate: normal - EKG Data Interpretation: [facility] - Radiology Data Radiology results: report reviewed, image reviewed CHEST 1 VIEW INDICATION: Chest Pain. COMPARISON: None available. FINDINGS: Support devices: None. Heart: Normal. Pulmonary vasculature: Normal. Lungs/Pleura: A wedge-shaped pleural-based right basal lung opacity. Mild left basal subsegmental atelectasis. Additional findings: None. IMPRESSION: 1. A wedge-shaped pleural-based right basal lung opacity suspicious for either pneumonia or a pulmonary infarct. 2. No CHF. - Differential Diagnosis chest pain. Flank pain. PE. Critical Care Time: Yes Critical care attestation.: If time is entered above; I have spent that time in minutes in the direct care of this critically ill patient, excluding procedure time. Critical Care Time: 35 minutes ED Disposition Is pt being admited?: Yes Does the pt Need Aspirin: No
[2019-02-12 11:54] LABS: BUN/Creatinine Ratio 9; Blood Urea Nitrogen 9 mg/dL (9-20); Calcium 9.7 mg/dL (8.4-10.2); Hemolysis Index 12
[2019-02-12] MEDS ORDERED: DILAUDID IV ONE ×3 (12:00→18:31)
[2019-02-12] MEDS ORDERED: ZOFRAN IV ONE (12:00)
[2019-02-12] MEDS ORDERED: DILAUDID ONE (14:53)
--- NOTE | 2019-02-12 18:20 | Cat Scan Report ---
CT of the abdomen and pelvis without contrast INDICATION: Flank pain COMPARISON: 01/19/2017 FINDINGS: There is moderately extensive basilar lung consolidation with small associated pleural effu sions. The liver, spleen, pancreas and adrenal glands are all grossly normal. Kidneys are normal as w ell with no stones, masses or obstruction. No definite gallbladder or biliary tree abnormality. No fl uid or adenopathy in the upper abdomen. CT of the pelvis shows no ureteral stones. No stone fragments seen in the bladder. Prostate is not en larged. Bladder wall may be somewhat thickened diffusely. No diverticulosis or diverticulitis. There is a small amount of free pelvic fluid. No appendicitis seen. IMPRESSION: No renal calculi or obstruction. Automated exposure control was utilized to diminish radiation dose. Signer Name: Linwood Demarco MD Signed: 02/12/2019 6:16 PM Workstation Name: [id number]
--- NOTE | 2019-02-12 18:34 | Cat Scan Report ---
CT angiography of the chest with 2-D reconstructions INDICATION: Lateral chest pain Thin section axial images were obtained as well as 2-D reformatted MIP images in all 3 planes COMPARISON: The old studies are not available for comparison at this time. FINDINGS: There is no hilar or mediastinal adenopathy. There are trace pleural effusions and basilar lung consolidation including the right lateral costophrenic angle. These areas may well be pulmonary infarctions as there are areas of emboli to the left lower lobe as well as to the lateral aspect of t he right lower lobe. No large central or upper lobe emboli are seen. There is no aortic dissection or aneurysm. There is a cavitary lesion in the right upper lobe measuring 2.5 cm. IMPRESSION: Bilateral pulmonary emboli of moderate severity with probable associated pulmonary infarc tions and pleural effusions. Incidental right upper lobe cavitary lesion. CRITICAL RESULT: Time of Discovery: 1720 hours Time of Communication: 1730 hours Licensed Practitioner Receiving Report: Dr. Johnson Read Back Performed: No Automated exposure control was utilized to diminish radiation dose. Signer Name: Linwood Demarco MD Signed: 02/12/2019 6:29 PM Workstation Name: [id number]
[2019-02-12] MEDS ORDERED: ZOFRAN IV PRN (19:52)
[2019-02-12] MEDS ORDERED: D50W (25GM) Syringe IV PRN (20:01)
--- NOTE | 2019-02-12 20:05 | History and Physical Report ---
History of Present Illness Date of examination: 02/12/19 Date of admission: 02/12/2019 Chief complaint: Bilateral Flank pain History of present illness: 58 -year-old adult male who is an ongoing smoker with history of pulmonary embolism not currently on anticoagulation, hypertension, diabetes, seizure disorder presents to [facility] ED with complaints of bilateral flank pain. Pt states that he's had progressively worsening bilateral flank pain for the past 2 days. He describes his pain as sharp and rates it 10/10. The pain is aggravated with palpation and movement and relived with rest. Pt states that he feels like he is having "kidney stones". Pt states that he had PE in 2017 and was on Xarelto for a period, but it was discontinued and currently he is not on any form of anticoagulation. Denies: CP, dyspnea, hemoptysis, hematemesis,n/v, paresis, headache, fever, or chills Past History Past Medical History: diabetes, hypertension, pulmonary embolism (Xarelto in past not currently on anticoagulation), seizures Past Surgical History: Other (back surgery) Social history: smoking (current everyday smoker) Family history: no significant family history Medications and Allergies Allergies Allergy/AdvReac Type Severity Reaction Status Date / Time hydrocodone bitartrate AdvReac Nausea Verified 01/19/17 10:51 [From Lortab] propoxyphene napsylate AdvReac Nausea Verified 01/19/17 10:51 [From Darvocet-N 100] Home Medications Medication Instructions Recorded Confirmed Last Taken Type Ibuprofen [Motrin 600 MG tab] 600 mg PO Q8H PRN #20 tablet 01/12/17 02/12/19 02/02/19 Rx Lisinopril [Zestril TAB] 40 mg PO QDAY 30 Days tablet 01/12/17 02/12/19 02/12/19 Rx Phenytoin [Dilantin] 200 mg PO QHS 30 Days capsule 01/12/17 02/12/19 02/12/19 Rx predniSONE [Deltasone] 20 mg PO QDAY 02/12/19 02/12/19 02/12/19 History Active Meds: Active Medications Acetaminophen (Tylenol) 650 mg PO Q4H PRN PRN Reason: Pain MILD(1-3)/Fever >100.5/BLACK Heparin Sodium/Sodium Chloride (Heparin/ 0.45% Nacl-25,000 Unit/500 Ml) 25,000 unit in 500 mls @ 16 mls/hr IV TITR BAILEY; Protocol Lisinopril (Zestril) 40 mg PO QDAY BAILEY Ondansetron HCl (Zofran) 4 mg IV Q6H PRN PRN Reason: Nausea And Vomiting Phenytoin (Dilantin) 200 mg PO QHS BAILEY Sodium Chloride (Sodium Chloride Flush Syringe 10 Ml) 10 ml IV BID BAILEY Sodium Chloride (Sodium Chloride Flush Syringe 10 Ml) 10 ml IV PRN PRN PRN Reason: LINE FLUSH Review of Systems All systems: negative Cardiovascular: no shortness of breath, no dyspnea on exertion Genitourinary Male: flank pain (bilateral ) Exam - Physical Exam Narrative exam: Physical exam General appearance: Present: Mild discomfort, alert and oriented 3, middle-age adult male - EENT Eyes: Present: PERRL, EOM intact ENT: hearing intact, normal dentition - Neck Neck: Present: supple, normal ROM - Respiratory Respiratory effort: Non-labored Respiratory: CTA bilaterally - Cardiovascular Heart rate: 52 (bpm) Rhythm: SB Heart Sounds: Present: S1 & S2. Absent: rub, click - Extremities Extremities: no ischemia, pulses intact, abnormal () - Peripheral Assessment Peripheral Pulses: within normal limits - Abdominal General gastrointestinal: soft, flank tenderness bilaterally , normal bowel sounds - Integumentary Integumentary: Present: warm, dry - Musculoskeletal Musculoskeletal: able to move all extremities -Neurological Neurological: CN II-XII grossly intact - Psychiatric Psychiatric: cooperative - Constitutional Vitals: Temp Pulse Resp BP Pulse Ox 98.7 F 52 L 15 139/78 99 02/12/19 12:04 02/12/19 19:00 02/12/19 19:00 02/12/19 19:00 02/12/19 19:00 Results - Labs CBC & Chem 7: 02/12/19 11:22 02/12/19 11:22 Labs: Laboratory Last Values WBC 6.7 K/mm3 (4.5-11.0) 02/12/19 11:22 RBC 4.50 M/mm3 (3.65-5.03) 02/12/19 11:22 Hgb 14.6 gm/dl (11.8-15.2) 02/12/19 11:22 Hct 42.5 % (35.5-45.6) 02/12/19 11:22 MCV 95 fl (84-94) H 02/12/19 11:22 MCH 32 pg (28-32) 02/12/19 11:22 MCHC 34 % (32-34) 02/12/19 11:22 RDW 14.2 % (13.2-15.2) 02/12/19 11:22 Plt Count 253 K/mm3 (140-440) 02/12/19 11:22 Lymph % (Auto) 10.0 % (13.4-35.0) L 02/12/19 11:22 [place] % (Auto) 9.5 % (0.0-7.3) H 02/12/19 11:22 Eos % (Auto) 1.0 % (0.0-4.3) 02/12/19 11:22 Baso % (Auto) 0.3 % (0.0-1.8) 02/12/19 11:22 Lymph # 0.7 K/mm3 (1.2-5.4) L 02/12/19 11:22 [place] # 0.6 K/mm3 (0.0-0.8) 02/12/19 11:22 Eos # 0.1 K/mm3 (0.0-0.4) 02/12/19 11:22 Baso # 0.0 K/mm3 (0.0-0.1) 02/12/19 11:22 Seg Neutrophils % 79.2 % (40.0-70.0) H 02/12/19 11:22 Seg Neutrophils # 5.3 K/mm3 (1.8-7.7) 02/12/19 11:22 Sodium 142 mmol/L (137-145) 02/12/19 11:22 Potassium 4.3 mmol/L (3.6-5.0) 02/12/19 11:22 Chloride 100.3 mmol/L (98-107) 02/12/19 11:22 Carbon Dioxide 26 mmol/L (22-30) 02/12/19 11:22 20 mmol/L 02/12/19 11:22 BUN 9 mg/dL (9-20) 02/12/19 11:22 1.0 mg/dL (0.8-1.5) 02/12/19 11:22 Estimated GFR > 60 ml/min 02/12/19 11:22 9 % 02/12/19 11:22 Glucose 105 mg/dL (75-100) H 02/12/19 11:22 Calcium 9.7 mg/dL (8.4-10.2) 02/12/19 11:22 < 0.010 ng/mL (0.00-0.029) 02/12/19 17:30 - Imaging and Cardiology Imaging and Cardiology: CT angio Chest: FINDINGS: There is no hilar or mediastinal adenopathy. There are trace pleural effusions and basilar lung consolidation including the right lateral costophrenic angle. These areas may well be pulmonary infarctions as there are areas of emboli to the left lower lobe as well as to the lateral aspect of the right lower lobe. No large central or upper lobe emboli are seen. There is no aortic dissection or aneurysm. There is a cavitary lesion in the right upper lobe measuring 2.5 cm. IMPRESSION: Bilateral pulmonary emboli of moderate severity with probable associated pulmonary infarctions and pleural effusions. Incidental right upper lobe cavitary lesion. CT Abdomen/Pelvis: FINDINGS: There is moderately extensive basilar lung consolidation with small associated pleural effusions. The liver, spleen, pancreas and adrenal glands are all grossly normal. Kidneys are normal as well with no stones, masses or obstruction. No definite gallbladder or biliary tree abnormality. No fluid or adenopathy in the upper abdomen. CT of the pelvis shows no ureteral stones. No stone fragments seen in the bladder. Prostate is not enlarged. Bladder wall may be somewhat thickened diffusely. No diverticulosis or diverticulitis. There is a small amount of free pelvic fluid. No appendicitis seen. IMPRESSION: No renal calculi or obstruction. CXR: FINDINGS: Support devices: None. Heart: Normal. Pulmonary vasculature: Normal. Lungs/Pleura: A wedge-shaped pleural-based right basal lung opacity. Mild left basal subsegmental atelectasis. Additional findings: None. Assessment and Plan Assessment and plan: 58 -year-old adult male who is an ongoing smoker with history of pulmonary embolism not currently on anticoagulation, hypertension, diabetes, seizure disorder presents to [facility] ED with complaints of worsening bilateral flank pain for the past 2 days. Pulmonary Embolism -CTA revealed:Bilateral pulmonary emboli of moderate severity with probable associated pulmonary infarctions and pleural effusions. Incidental right upper lobe cavitary lesion -Hx of PE previously on Xarelto, not currently on anticoagulation -Start Heparin gtt and initiate Heparin protocol -Protein C , Protein S and Lupus Anticoagulation panel pending -Vascular consulted -Pulmonary consulted Hypertension -Continue to monitor BP -Resume home antihypertensive meds to optimize BP DM 2- -POC BG monitoring -SSI coverage -HbgA1C pending Hx Seizure disorder -Continue Dilantin Tobacco abuse -Current every day smoker -Counseled for cessation -Nicotine patch when necessary DVT PPX -On heparin gtt Advance Directives: No VTE prophylaxis?: Chemical, Mechanical Plan of care discussed with patient/family: Yes
[2019-02-12 22:31] LABS: INR 1.06 (0.87-1.13)
[2019-02-12] MEDS: DILANTIN PO SCH (23:04)
[2019-02-12] MEDS: HEPARIN 10,000 UNITS/10 ML IV ONE ×2 (23:04→23:27)
[2019-02-12] MEDS: HEPARIN/ 0.45% NACL-25,000 UNIT/500 ML 25,000 UNIT/500 ML BAG IV SCH (23:06)
[2019-02-12] MEDS: SODIUM CHLORIDE FLUSH SYRINGE 10 ML IV SCH (23:09)
[2019-02-12] MEDS: HumaLOG SUB-Q SCH (23:09)
[2019-02-12] MEDS ORDERED: HEPARIN 10,000 UNITS/10 ML IV ONE (23:15)
[2019-02-12] MEDS: MORPHINE IV PRN (23:20)
[2019-02-13 01:46] LABS: Bilirubin,Urine NEG (Negative); Blood,Urine NEG (Negative); Color,Urine Yellow (Yellow); Protein,Urine <15 mg/dL mg/dL (Negative); Urobilinogen,Urine < 2.0 mg/dL (<2.0); WBC,Urine < 1.0 /HPF (0.0-6.0)
[2019-02-13 06:31] LABS: Basophils % (Auto) 0.2 % (0.0-1.8); Eosinophils # (Auto) 0.1 K/mm3 (0.0-0.4); Eosinophils % (Auto) 0.9 % (0.0-4.3); Hematocrit 38.9 % (35.5-45.6); Hemoglobin 13.4 gm/dl (11.8-15.2); Lymphocytes # (Auto) 0.7 K/mm3 (1.2-5.4); Lymphocytes % (Auto) 9.3 % (13.4-35.0); Mean Corpuscular HGB Conc 35 % (32-34); Mean Corpuscular Volume 94 fl (84-94); Monocytes # (Auto) 0.6 K/mm3 (0.0-0.8); Monocytes % (Auto) 8.2 % (0.0-7.3); Platelet Count 222 K/mm3 (140-440); Red Blood Count 4.14 M/mm3 (3.65-5.03); Red Cell Distribution Width 14.2 % (13.2-15.2)
[2019-02-13] MEDS: MORPHINE IV PRN ×4 (06:45→21:51)
[2019-02-13 06:52] LABS: BUN/Creatinine Ratio 6; Blood Urea Nitrogen 6 mg/dL (9-20); Calcium 9.3 mg/dL (8.4-10.2); Hemolysis Index 1
[2019-02-13] MEDS: HumaLOG SUB-Q SCH ×4 (09:26→21:52)
--- NOTE | 2019-02-13 10:09 | Consultation ---
History of Present Illness Consult date: 02/13/19 Requesting physician: KYLAH VALLES Reason for consult: pulmonary embolism, other (RUL cavitary lesion) History of present illness: 58 -year-old adult male who is an ongoing smoker with history of pulmonary embolism not currently on anticoagulation, hypertension, diabetes, seizure disorder presents to [facility] ED with complaints of bilateral flank pain. Patient states that he's had progressively worsening bilateral flank pain for the past 2 days. He describes his pain as sharp and rates it 10/10. The pain is aggravated with palpation and movement and relived with rest. Patient states that he feels like he is having "kidney stones". Patient states that he had PE in 2017 and was on Xarelto for a period, but it w as discontinued and currently he is not on any form of anticoagulation. He is currently on a heparin infusion. On imaging right upper lobe cavitary lesion was seen and I have been consulted for pulmonary input. Patient was seen and examined. Vitals, labs, medications, chart and imaging were reviewed. The images does show a cystic RUL lesion which was not there 2 years ago. Review of Systems All systems: negative Cardiovascular: no shortness of breath, no dyspnea on exertion Genitourinary Male: flank pain (bilateral ) Denies: CP, dyspnea, hemoptysis, hematemesis,n/v, paresis, headache, fever, or chills Past History Past Medical History: diabetes, hypertension, pulmonary embolism (Xarelto in past not currently on anticoagulation), seizures Past Surgical History: Other (back surgery) Social history: smoking (current everyday smoker) Family history: no significant family history Medications and Allergies Allergies Allergy/AdvReac Type Severity Reaction Status Date / Time hydrocodone bitartrate AdvReac Nausea Verified 01/19/17 10:51 [From Lortab] propoxyphene napsylate AdvReac Nausea Verified 01/19/17 10:51 [From Darvocet-N 100] Home Medications Medication Instructions Recorded Confirmed Last Taken Type Ibuprofen [Motrin 600 MG tab] 600 mg PO Q8H PRN #20 tablet 01/12/17 02/12/19 02/02/19 Rx Lisinopril [Zestril TAB] 40 mg PO QDAY 30 Days tablet 01/12/17 02/12/19 02/12/19 Rx Phenytoin [Dilantin] 200 mg PO QHS 30 Days capsule 01/12/17 02/12/19 02/12/19 Rx predniSONE [Deltasone] 20 mg PO QDAY 02/12/19 02/12/19 02/12/19 History Active Meds: Active Medications Acetaminophen (Tylenol) 650 mg PO Q4H PRN PRN Reason: Pain MILD(1-3)/Fever >100.5/BLACK Dextrose (D50w (25gm) Syringe) 50 ml IV PRN PRN PRN Reason: Hypoglycemia Heparin Sodium/Sodium Chloride (Heparin/ 0.45% Nacl-25,000 Unit/500 Ml) 25,000 unit in 500 mls @ 16 mls/hr IV TITR [facility]; Protocol Last Titration: 02/13/19 07:16 Dose: 900 units/hr, 18 mls/hr Documented by: Insulin Human Lispro (Humalog) 0 unit SUB-Q ACHS [facility]; Protocol Last Admin: 02/13/19 09:26 Dose: Not Given Documented by: Lisinopril (Zestril) 40 mg PO QDAY [facility] Morphine Sulfate (Morphine) 2 mg IV Q4H PRN PRN Reason: Pain, Moderate (4-6) Last Admin: 02/13/19 06:45 Dose: 2 mg Documented by: Nicotine (Habitrol) 14 mg TD QDAY [facility] Ondansetron HCl (Zofran) 4 mg IV Q6H PRN PRN Reason: Nausea And Vomiting Phenytoin (Dilantin) 200 mg PO QHS [facility] Last Admin: 02/12/19 23:04 Dose: 200 mg Documented by: Sodium Chloride (Sodium Chloride Flush Syringe 10 Ml) 10 ml IV BID [facility] Last Admin: 02/12/19 23:09 Dose: 10 ml Documented by: Sodium Chloride (Sodium Chloride Flush Syringe 10 Ml) 10 ml IV PRN PRN PRN Reason: LINE FLUSH Physical Examination Vital signs: Vital Signs Temp Pulse Resp BP Pulse Ox 99.1 F 58 L 20 158/86 99 02/12/19 11:02 02/12/19 11:02 02/12/19 11:02 02/12/19 11:02 02/12/19 11:02 - Physical Exam Narrative exam: General appearance: Present: Mild discomfort, alert and oriented 3, middle-age adult male - EENT Eyes: Present: PERRL, EOM intact ENT: hearing intact, normal dentition - Neck Neck: Present: supple, normal ROM - Respiratory Respiratory effort: Non-labored Respiratory: CTA bilaterally - Cardiovascular Heart rate: 52 (bpm) Rhythm: SB Heart Sounds: Present: S1 & S2. Absent: rub, click - Extremities Extremities: no ischemia, pulses intact, abnormal () - Peripheral Assessment Peripheral Pulses: within normal limits - Abdominal General gastrointestinal: soft, flank tenderness bilaterally , normal bowel sounds - Integumentary Integumentary: Present: warm, dry - Musculoskeletal Musculoskeletal: able to move all extremities -Neurological Neurological: CN II-XII grossly intact - Psychiatric Psychiatric: cooperative Results - Laboratory Findings CBC and BMP: 02/14/19 07:26 02/13/19 06:10 PT/INR, D-dimer PT 13.5 Sec. (12.2-14.9) 02/12/19 19:57 INR 1.06 (0.87-1.13) 02/12/19 19:57 Abnormal lab findings: Abnormal Labs 02/12/19 02/12/19 02/12/19 01:20 11:22 11:22 MCV 95 H MCH MCHC Lymph % (Auto) 10.0 L [place] % (Auto) 9.5 H Lymph # 0.7 L Seg Neutrophils % 79.2 H Heparin Anti-Xa Level BUN Glucose 105 H Ur Specific [place] 1.036 H 02/13/19 02/13/19 02/13/19 06:10 06:10 06:10 MCV MCH 33 H MCHC 35 H Lymph % (Auto) 9.3 L [place] % (Auto) 8.2 H Lymph # 0.7 L Seg Neutrophils % 81.4 H Heparin Anti-Xa Level < 0.10 L BUN 6 L Glucose 135 H Ur Specific [place] - Diagnostic Findings CT scan - chest: image reviewed (RUL cystic lesion,PEs, lower lobe infiltrates) Assessment and Plan Pulmonary Embolism Right UL cystic lesion Tobacco use disorder/Nicotine dependence- on going Pulmonary infiltrates, possibly pulmonary infarcts HYN h/o Seizure disorder Type 2 DM - Anticoagulation -Bronchoscopy to get BAL and brushings to r/o infectious causes for the RUL cavitary/cystic lesion -Smoking cessation counselling -Nicotine withdrawal precautions -Hypercoagulable work up The risks, benefits, indications and alternatives to bronchoscopy were discussed in detail with the patient. Verbal and written information given. He verbalized understanding and wishes to proceed with bronchsocopy. Scheduled for 230pm tomorrow. NPO after midnight, hold heparin at 4am. Discussed with primary Attending
--- NOTE | 2019-02-13 10:49 | Progress Note ---
Assessment and Plan Assessment and plan: 58 -year-old adult male who is an ongoing smoker with history of pulmonary embolism not currently on anticoagulation, hypertension, diabetes, seizure disorder presents to [facility] ED with complaints of worsening bilateral flank pain for the past 2 days. Pulmonary Embolism -CTA revealed:Bilateral pulmonary emboli of moderate severity with probable associated pulmonary infarctions and pleural effusions. Incidental right upper lobe cavitary lesion -Hx of PE i2 yrs ago Jan 2017, previously on Xarelto, not currently on anticoagulation -Started Heparin gtt and initiate Heparin protocol -Protein C , Protein S and Lupus Anticoagulation panel pending -Vascular consulted -Pulmonary consulted Hypertension -Continue to monitor BP -Resume home antihypertensive meds to optimize BP Diabetes mellitus type 2 -POC BG monitoring -SSI coverage -HbgA1C pending Hx Seizure disorder -Continue Dilantin Tobacco abuse -Current every day smoker -Counseled for cessation -Nicotine patch when necessary DVT PPX -On heparin gtt History Interval history: Chest pain Flank pain Hospitalist Physical - Physical exam Narrative exam: Gen: Not in acute distress, lying in bed, ill looking HEENT: Normocephalic, atraumatic Neck: supple, no JVD Heart: S1 and S2 reg, no murmurs, rubs or gallop Lungs: Bilateral crackles, no rhonchi, no wheeze Abd: soft, non tender, non distended, normal BS, Ext: No edema, no clubbing, no cyanosis Neuro: Awake, alert, oriented X 3, no focal neurological signs - Constitutional Vitals: Temp Pulse Resp BP Pulse Ox 99.6 F 53 L 20 153/84 98 02/13/19 03:15 02/13/19 04:24 02/13/19 06:45 02/13/19 03:15 02/13/19 03:15 Results - Labs CBC & Chem 7: 02/13/19 06:10 02/13/19 06:10 Labs: Laboratory Last Values WBC 7.1 K/mm3 (4.5-11.0) 02/13/19 06:10 RBC 4.14 M/mm3 (3.65-5.03) 02/13/19 06:10 Hgb 13.4 gm/dl (11.8-15.2) 02/13/19 06:10 Hct 38.9 % (35.5-45.6) 02/13/19 06:10 MCV 94 fl (84-94) 02/13/19 06:10 MCH 33 pg (28-32) H 02/13/19 06:10 MCHC 35 % (32-34) H 02/13/19 06:10 RDW 14.2 % (13.2-15.2) 02/13/19 06:10 Plt Count 222 K/mm3 (140-440) 02/13/19 06:10 Lymph % (Auto) 9.3 % (13.4-35.0) L 02/13/19 06:10 [place] % (Auto) 8.2 % (0.0-7.3) H 02/13/19 06:10 Eos % (Auto) 0.9 % (0.0-4.3) 02/13/19 06:10 Baso % (Auto) 0.2 % (0.0-1.8) 02/13/19 06:10 Lymph # 0.7 K/mm3 (1.2-5.4) L 02/13/19 06:10 [place] # 0.6 K/mm3 (0.0-0.8) 02/13/19 06:10 Eos # 0.1 K/mm3 (0.0-0.4) 02/13/19 06:10 Baso # 0.0 K/mm3 (0.0-0.1) 02/13/19 06:10 Seg Neutrophils % 81.4 % (40.0-70.0) H 02/13/19 06:10 Seg Neutrophils # 5.8 K/mm3 (1.8-7.7) 02/13/19 06:10 PT 13.5 Sec. (12.2-14.9) 02/12/19 19:57 INR 1.06 (0.87-1.13) 02/12/19 19:57 APTT 33.0 Sec. (24.2-36.6) 02/12/19 19:57 Heparin Anti-Xa Level < 0.10 U.I./ml (0.3-0.7) L 02/13/19 06:10 Sodium 141 mmol/L (137-145) 02/13/19 06:10 Potassium 4.0 mmol/L (3.6-5.0) 02/13/19 06:10 Chloride 100.1 mmol/L (98-107) 02/13/19 06:10 Carbon Dioxide 28 mmol/L (22-30) 02/13/19 06:10 17 mmol/L 02/13/19 06:10 BUN 6 mg/dL (9-20) L 02/13/19 06:10 1.0 mg/dL (0.8-1.5) 02/13/19 06:10 Estimated GFR > 60 ml/min 02/13/19 06:10 6 % 02/13/19 06:10 Glucose 135 mg/dL (75-100) H 02/13/19 06:10 POC Glucose 105 (70-105) 02/13/19 07:54 4.5 % (4-6) 02/12/19 20:07 Calcium 9.3 mg/dL (8.4-10.2) 02/13/19 06:10 < 0.010 ng/mL (0.00-0.029) 02/12/19 17:30 Yellow (Yellow) 02/12/19 01:20 Clear (Clear) 02/12/19 01:20 5.0 (5.0-7.0) 02/12/19 01:20 Ur Specific [place] 1.036 (1.003-1.030) H 02/12/19 01:20 <15 mg/dl mg/dL (Negative) 02/12/19 01:20 Neg mg/dL (Negative) 02/12/19 01:20 Tr mg/dL (Negative) 02/12/19 01:20 Neg (Negative) 02/12/19 01:20 Neg (Negative) 02/12/19 01:20 Neg (Negative) 02/12/19 01:20 < 2.0 mg/dL (<2.0) 02/12/19 01:20 Ur Leukocyte Esterase Neg (Negative) 02/12/19 01:20 < 1.0 /HPF (0.0-6.0) 02/12/19 01:20 2.0 /HPF (0.0-6.0) 02/12/19 01:20 Active Medications - Current Medications Current Medications: Generic Name Dose Route Start Last Admin Trade Name Freq PRN Reason Stop Dose Admin Acetaminophen 650 mg 02/12/19 19:52 Tylenol PO Q4H PRN Pain MILD(1-3)/Fever >100.5/BLACK Dextrose 50 ml 02/12/19 20:01 D50w (25gm) Syringe IV PRN PRN Hypoglycemia Heparin Sodium/Sodium Chloride 25,000 unit in 500 mls @ 16 mls/hr 02/12/19 20:00 02/13/19 07:16 Heparin/ 0.45% Nacl-25,000 Unit/500 Ml IV 900 units/hr TITR [facility] 18 mls/hr Titration Protocol 800 UNITS/HR Insulin Human Lispro 0 unit 02/12/19 22:00 02/13/19 09:26 Humalog SUB-Q Not Given ACHS [facility] Protocol Lisinopril 40 mg 02/13/19 10:00 Zestril PO QDAY [facility] Morphine Sulfate 2 mg 02/12/19 23:02 02/13/19 06:45 Morphine IV 2 mg Q4H PRN Administration Pain, Moderate (4-6) Nicotine 14 mg 02/13/19 10:00 Habitrol TD QDAY [facility] Ondansetron HCl 4 mg 02/12/19 19:52 Zofran IV Q6H PRN Nausea And Vomiting Phenytoin 200 mg 02/12/19 22:00 02/12/19 23:04 Dilantin PO 200 mg QHS [facility] Administration Sodium Chloride 10 ml 02/12/19 22:00 02/12/19 23:09 Sodium Chloride Flush Syringe 10 Ml IV 10 ml BID [facility] Administration Sodium Chloride 10 ml 02/12/19 19:52 Sodium Chloride Flush Syringe 10 Ml IV PRN PRN LINE FLUSH
[2019-02-13] MEDS: HABITROL TD SCH (11:13)
[2019-02-13] MEDS: ZESTRIL PO SCH (11:17)
--- NOTE | 2019-02-13 11:29 | Vascular Lab Report ---
DUPLEX DOPPLER LOWER EXTREMITY VEINS, BILATERAL INDICATION / CLINICAL INFORMATION: Lower extremity pain and swelling TECHNIQUE: Duplex doppler imaging was performed through the veins of both lower extremities using venous annmarie renu and other maneuvers. COMPARISON: None available. FINDINGS: Right Common Femoral vein: Negative. Right Femoral vein: Negative. Right Popliteal vein: Negative. Right Calf veins: Negative. Left Common Femoral vein: Negative. Left Femoral vein: Negative. Left Popliteal vein: Negative. Left Calf veins: Negative. Additional findings: There is a questionable chronic appearing nonocclusive thrombus within the right superficial saphenous vein near the knee.. IMPRESSION: 1. No sonographic evidence for DVT in either lower extremity. Signer Name: Sixto Barton MD Signed: 02/13/2019 11:24 AM Workstation Name: [id number]
[2019-02-13] MEDS: SODIUM CHLORIDE FLUSH SYRINGE 10 ML IV SCH ×2 (12:43→21:52)
[2019-02-13] MEDS ORDERED: HEPARIN IV ONE (16:29)
--- NOTE | 2019-02-13 17:15 | Consultation ---
History of Present Illness - Reason for Consult Consult date: 02/13/19 PE - History of Present Illness 58 -year-old adult male who is an ongoing smoker with history of pulmonary embolism not currently on anticoagulation, hypertension, diabetes, seizure disorder presents to [facility] ED with complaints of bilateral flank pain. Pt states that he's had progressively worsening bilateral flank pain for the past 2 days. He describes his pain as sharp and rates it 10/10. The pain is aggravated with palpation and movement and relived with rest. Pt states that he feels like he is having "kidney stones". Pt states that he had PE in 2017 and was on Xarelto for a period, but it was discontinued and currently he is not on any form of anticoagulation. Denies: CP, dyspnea, hemoptysis, hematemesis,n/v, paresis, headache, fever, or chills When I saw him at bedside, patient was complaining of right sided pleuritic chest pain. This has been happening for the last 2 weeks with worsening severity. The patient denies any long trips, car rides, bus rides, etc. He does mention that he has been somnolent for the last 2 weeks due to his shortness of breath and sleeping a lot. Past History Past Medical History: diabetes, hypertension, pulmonary embolism (Xarelto in past not currently on anticoagulation), seizures Past Surgical History: Other (back surgery) Social history: smoking (current everyday smoker) Family history: no significant family history Medications and Allergies Allergies Allergy/AdvReac Type Severity Reaction Status Date / Time hydrocodone bitartrate AdvReac Nausea Verified 01/19/17 10:51 [From Lortab] propoxyphene napsylate AdvReac Nausea Verified 01/19/17 10:51 [From Darvocet-N 100] Home Medications Medication Instructions Recorded Confirmed Last Taken Type Ibuprofen [Motrin 600 MG tab] 600 mg PO Q8H PRN #20 tablet 01/12/17 02/12/19 02/02/19 Rx Lisinopril [Zestril TAB] 40 mg PO QDAY 30 Days tablet 01/12/17 02/12/19 02/12/19 Rx Phenytoin [Dilantin] 200 mg PO QHS 30 Days capsule 01/12/17 02/12/19 02/12/19 Rx predniSONE [Deltasone] 20 mg PO QDAY 02/12/19 02/12/19 02/12/19 History Active Meds: Active Medications Acetaminophen (Tylenol) 650 mg PO Q4H PRN PRN Reason: Pain MILD(1-3)/Fever >100.5/BLACK Dextrose (D50w (25gm) Syringe) 50 ml IV PRN PRN PRN Reason: Hypoglycemia Heparin Sodium/Sodium Chloride (Heparin/ 0.45% Nacl-25,000 Unit/500 Ml) 25,000 unit in 500 mls @ 16 mls/hr IV TITR [facility]; Protocol Last Titration: 02/13/19 16:52 Dose: 1,050 units/hr, 21 mls/hr Documented by: Insulin Human Lispro (Humalog) 0 unit SUB-Q ACHS [facility]; Protocol Last Admin: 02/13/19 12:41 Dose: Not Given Documented by: Lisinopril (Zestril) 40 mg PO QDAY [facility] Last Admin: 02/13/19 11:17 Dose: 40 mg Documented by: Morphine Sulfate (Morphine) 2 mg IV Q4H PRN PRN Reason: Pain, Moderate (4-6) Last Admin: 02/13/19 16:47 Dose: 2 mg Documented by: Nicotine (Habitrol) 14 mg TD QDAY [facility] Last Admin: 02/13/19 11:13 Dose: 14 mg Documented by: Ondansetron HCl (Zofran) 4 mg IV Q6H PRN PRN Reason: Nausea And Vomiting Phenytoin (Dilantin) 200 mg PO QHS [facility] Last Admin: 02/12/19 23:04 Dose: 200 mg Documented by: Sodium Chloride (Sodium Chloride Flush Syringe 10 Ml) 10 ml IV BID [facility] Last Admin: 02/13/19 12:43 Dose: 10 ml Documented by: Sodium Chloride (Sodium Chloride Flush Syringe 10 Ml) 10 ml IV PRN PRN PRN Reason: LINE FLUSH Review of Systems All systems: negative (see hPI) Exam - Constitutional Vitals: Temp Pulse Resp BP Pulse Ox 99.8 F H 57 L 12 128/75 94 02/13/19 09:56 02/13/19 12:00 02/13/19 09:56 02/13/19 11:17 02/13/19 09:56 General appearance: Present: mild distress (Pleuritic chest pain) - EENT Eyes: Present: EOM intact ENT: hearing intact - Respiratory Respiratory effort: normal - Extremities Extremities: normal temperature, normal color - Abdominal General gastrointestinal: Present: soft - Psychiatric Psychiatric: appropriate mood/affect, cooperative Results - Labs CBC & Chem 7: 02/13/19 06:10 02/13/19 06:10 Labs: Abnormal lab results 02/12/19 02/13/19 02/13/19 Range/Units 01:20 06:10 06:10 MCH 33 H (28-32) pg MCHC 35 H (32-34) % Lymph % (Auto) 9.3 L (13.4-35.0) % [place] % (Auto) 8.2 H (0.0-7.3) % Lymph # 0.7 L (1.2-5.4) K/mm3 Seg Neutrophils % 81.4 H (40.0-70.0) % Heparin Anti-Xa Level (0.3-0.7) U.I./ml BUN 6 L (9-20) mg/dL Glucose 135 H (75-100) mg/dL Ur Specific [place] 1.036 H (1.003-1.030) 02/13/19 02/13/19 Range/Units 06:10 13:20 MCH (28-32) pg MCHC (32-34) % Lymph % (Auto) (13.4-35.0) % [place] % (Auto) (0.0-7.3) % Lymph # (1.2-5.4) K/mm3 Seg Neutrophils % (40.0-70.0) % Heparin Anti-Xa Level < 0.10 L < 0.10 L (0.3-0.7) U.I./ml BUN (9-20) mg/dL Glucose (75-100) mg/dL Ur Specific [place] (1.003-1.030) - Imaging and Cardiology CT scan - chest: report reviewed, image reviewed Assessment and Plan 58-year-old male with pulmonary embolism suffering a prior episode of pulmonary embolism 3 years ago. Neither episode hasn't explainable cause. Patient needs to be on anticoagulation for life. He has had 2 events which is criteria for lifelong of anticoagulation. Discussed this with the patient. Recommend Xarelto as patient has had this in the past. No need for IVC filter or pulmonary artery thrombectomy given the low thrombus load and lack of RV strain.
[2019-02-13] MEDS: DILANTIN PO SCH (21:51)
[2019-02-14] MEDS: HEPARIN/ 0.45% NACL-25,000 UNIT/500 ML 25,000 UNIT/500 ML BAG IV SCH (00:35)
[2019-02-14 07:35] LABS: Hematocrit 36.2 % (35.5-45.6); Hemoglobin 13.1 gm/dl (11.8-15.2)
[2019-02-14] MEDS: HumaLOG SUB-Q SCH ×4 (08:27→21:57)
--- NOTE | 2019-02-14 11:02 | Progress Note ---
Assessment and Plan Assessment and plan: 58 -year-old adult male who is an ongoing smoker with history of pulmonary embolism not currently on anticoagulation, hypertension, diabetes, seizure disorder presents to [facility] ED with complaints of worsening bilateral flank pain for the past 2 days. Pulmonary Embolism -CTA revealed:Bilateral pulmonary emboli of moderate severity with probable associated pulmonary infarctions and pleural effusions. Incidental right upper lobe cavitary lesion -Hx of PE i2 yrs ago Jan 2017, previously on Xarelto, not currently on anticoagulation -Started Heparin drip -Protein C , Protein S and Lupus Anticoagulation panel pending -Vascular consulted -Pulmonary consulted Right upper lobe cavitary lesion Bronchoscopy today Hypertension -Continue to monitor BP -Resume home antihypertensive meds to optimize BP Diabetes mellitus type 2 -POC BG monitoring -SSI coverage -HbgA1C pending Hx Seizure disorder -Continue Dilantin Tobacco abuse -Current every day smoker -Counseled for cessation -Nicotine patch when necessary DVT PPX -On heparin gtt History Interval history: Chest pain Flank pain Hospitalist Physical - Physical exam Narrative exam: Gen: Not in acute distress, lying in bed, ill looking HEENT: Normocephalic, atraumatic Neck: supple, no JVD Heart: S1 and S2 reg, no murmurs, rubs or gallop Lungs: Bilateral crackles, no rhonchi, no wheeze Abd: soft, non tender, non distended, normal BS, Ext: No edema, no clubbing, no cyanosis Neuro: Awake, alert, oriented X 3, no focal neurological signs - Constitutional Vitals: Temp Pulse Resp BP Pulse Ox 98.3 F 53 L 18 140/82 98 02/14/19 04:00 02/14/19 04:00 02/14/19 04:00 02/14/19 04:00 02/14/19 04:00 Results - Labs CBC & Chem 7: 02/15/19 04:18 02/15/19 04:18 Labs: Laboratory Last Values WBC 7.1 K/mm3 (4.5-11.0) 02/13/19 06:10 RBC 4.14 M/mm3 (3.65-5.03) 02/13/19 06:10 Hgb 13.1 gm/dl (11.8-15.2) 02/14/19 07:26 Hct 36.2 % (35.5-45.6) 02/14/19 07:26 MCV 94 fl (84-94) 02/13/19 06:10 MCH 33 pg (28-32) H 02/13/19 06:10 MCHC 35 % (32-34) H 02/13/19 06:10 RDW 14.2 % (13.2-15.2) 02/13/19 06:10 Plt Count 227 K/mm3 (140-440) 02/14/19 07:26 Lymph % (Auto) 9.3 % (13.4-35.0) L 02/13/19 06:10 [place] % (Auto) 8.2 % (0.0-7.3) H 02/13/19 06:10 Eos % (Auto) 0.9 % (0.0-4.3) 02/13/19 06:10 Baso % (Auto) 0.2 % (0.0-1.8) 02/13/19 06:10 Lymph # 0.7 K/mm3 (1.2-5.4) L 02/13/19 06:10 [place] # 0.6 K/mm3 (0.0-0.8) 02/13/19 06:10 Eos # 0.1 K/mm3 (0.0-0.4) 02/13/19 06:10 Baso # 0.0 K/mm3 (0.0-0.1) 02/13/19 06:10 Seg Neutrophils % 81.4 % (40.0-70.0) H 02/13/19 06:10 Seg Neutrophils # 5.8 K/mm3 (1.8-7.7) 02/13/19 06:10 PT 13.5 Sec. (12.2-14.9) 02/12/19 19:57 INR 1.06 (0.87-1.13) 02/12/19 19:57 APTT 33.0 Sec. (24.2-36.6) 02/12/19 19:57 Heparin Anti-Xa Level < 0.10 U.I./ml (0.3-0.7) L 02/14/19 07:26 Sodium 141 mmol/L (137-145) 02/13/19 06:10 Potassium 4.0 mmol/L (3.6-5.0) 02/13/19 06:10 Chloride 100.1 mmol/L (98-107) 02/13/19 06:10 Carbon Dioxide 28 mmol/L (22-30) 02/13/19 06:10 17 mmol/L 02/13/19 06:10 BUN 6 mg/dL (9-20) L 02/13/19 06:10 1.0 mg/dL (0.8-1.5) 02/13/19 06:10 Estimated GFR > 60 ml/min 02/13/19 06:10 6 % 02/13/19 06:10 Glucose 135 mg/dL (75-100) H 02/13/19 06:10 POC Glucose 99 (70-105) 02/14/19 07:41 4.5 % (4-6) 02/12/19 20:07 Calcium 9.3 mg/dL (8.4-10.2) 02/13/19 06:10 < 0.010 ng/mL (0.00-0.029) 02/12/19 17:30 Yellow (Yellow) 02/12/19 01:20 Clear (Clear) 02/12/19 01:20 5.0 (5.0-7.0) 02/12/19 01:20 Ur Specific [place] 1.036 (1.003-1.030) H 02/12/19 01:20 <15 mg/dl mg/dL (Negative) 02/12/19 01:20 Neg mg/dL (Negative) 02/12/19 01:20 Tr mg/dL (Negative) 02/12/19 01:20 Neg (Negative) 02/12/19 01:20 Neg (Negative) 02/12/19 01:20 Neg (Negative) 02/12/19 01:20 < 2.0 mg/dL (<2.0) 02/12/19 01:20 Ur Leukocyte Esterase Neg (Negative) 02/12/19 01:20 < 1.0 /HPF (0.0-6.0) 02/12/19 01:20 2.0 /HPF (0.0-6.0) 02/12/19 01:20 Active Medications - Current Medications Current Medications: Generic Name Dose Route Start Last Admin Trade Name Freq PRN Reason Stop Dose Admin Acetaminophen 650 mg 02/12/19 19:52 Tylenol PO Q4H PRN Pain MILD(1-3)/Fever >100.5/BLACK Dextrose 50 ml 02/12/19 20:01 D50w (25gm) Syringe IV PRN PRN Hypoglycemia Heparin Sodium/Sodium Chloride 25,000 unit in 500 mls @ 16 mls/hr 02/12/19 20:00 02/14/19 04:03 Heparin/ 0.45% Nacl-25,000 Unit/500 Ml IV 0 units/hr TITR [facility] 0 mls/hr Titration Protocol 800 UNITS/HR Insulin Human Lispro 0 unit 02/12/19 22:00 02/14/19 08:27 Humalog SUB-Q Not Given ACHS [facility] Protocol Lisinopril 40 mg 02/13/19 10:00 02/13/19 11:17 Zestril PO 40 mg QDAY [facility] Administration Morphine Sulfate 2 mg 02/12/19 23:02 02/13/19 21:51 Morphine IV 2 mg Q4H PRN Administration Pain, Moderate (4-6) Nicotine 14 mg 02/13/19 10:00 02/13/19 11:13 Habitrol TD 14 mg QDAY [facility] Administration Ondansetron HCl 4 mg 02/12/19 19:52 Zofran IV Q6H PRN Nausea And Vomiting Phenytoin 200 mg 02/12/19 22:00 02/13/19 21:51 Dilantin PO 200 mg QHS [facility] Administration Sodium Chloride 10 ml 02/12/19 22:00 02/13/19 21:52 Sodium Chloride Flush Syringe 10 Ml IV 10 ml BID [facility] Administration Sodium Chloride 10 ml 02/12/19 19:52 Sodium Chloride Flush Syringe 10 Ml IV PRN PRN LINE FLUSH
--- NOTE | 2019-02-14 12:34 | Progress Note ---
Assessment and Plan Pulmonary Embolism Right UL cystic lesion Tobacco use disorder/Nicotine dependence- on going Pulmonary infiltrates, possibly pulmonary infarcts HYN h/o Seizure disorder Type 2 DM - Anticoagulation on hold -Bronchoscopy today get BAL and brushings to r/o infectious causes for the RUL cavitary/cystic lesion -Smoking cessation counselling -Nicotine withdrawal precautions -Hypercoagulable work up on going The risks, benefits, indications and alternatives to bronchoscopy were discussed in detail with the patient. Verbal and written information given. He verbalized understanding and wishes to proceed with bronchsocopy, informed consent signed. Scheduled for 230pm today Subjective Date of service: 02/14/19 Interval history: Patient is seen today for: RUL cavitary lesion; bialteral pulmoanry emboli; Seen and examined at bedside; 24hour events reviewed; nursing and respiratory care staff consulted; no adverse overnight events reported to me; Vitals, labs, medications, chart reviewed. NPO for fiberoptic bronchoscopy today, heparin infusion on hold for procedure He denies any chest pain, no shortness of breath, no fevers or chills at this time. No cough Objective - Exam Narrative Exam: General appearance: Alert in NAD Eyes: anicteric sclerae, moist conjunctivae; no lid-lag; PERRLA HENT: Atraumatic; oropharynx clear with moist mucous membranes and no mucosal ulcerations/no oral thrush; normal hard and soft palate. Lungs: CTA, with normal respiratory effort and no intercostal retractions CV: RRR no murmur Abdomen: Soft, non-tender; no masses or hepatosplenomegaly Extremities: no edema, no cyanosis Skin: No rash. Psych: Appropriate affect, alert and oriented to person, place and time. Neuro: alert and oriented x 3. Moving all extremities Vital Signs - 12hr 02/14/19 02/14/19 02/14/19 04:00 04:44 07:55 Temperature 98.3 F 98.3 F 99.5 F Pulse Rate 53 L 52 L 57 L Respiratory 18 18 28 H Rate Blood Pressure 140/82 120/77 Blood Pressure 140/82 [Left] O2 Sat by Pulse 98 98 98 Oximetry CBC and BMP: 02/15/19 04:18 02/15/19 04:18 ABG, PT/INR, D-dimer: PT/INR, D-dimer PT 13.5 Sec. (12.2-14.9) 02/12/19 19:57 INR 1.06 (0.87-1.13) 02/12/19 19:57 Abnormal lab findings: Abnormal Labs 02/12/19 02/12/19 02/12/19 01:20 11:22 11:22 MCV 95 H MCH MCHC Lymph % (Auto) 10.0 L [place] % (Auto) 9.5 H Lymph # 0.7 L Seg Neutrophils % 79.2 H Heparin Anti-Xa Level BUN Glucose 105 H Ur Specific [place] 1.036 H 02/13/19 02/13/19 02/13/19 06:10 06:10 06:10 MCV MCH 33 H MCHC 35 H Lymph % (Auto) 9.3 L [place] % (Auto) 8.2 H Lymph # 0.7 L Seg Neutrophils % 81.4 H Heparin Anti-Xa Level < 0.10 L BUN 6 L Glucose 135 H Ur Specific [place] 02/13/19 02/13/19 02/14/19 13:20 22:46 07:26 MCV MCH MCHC Lymph % (Auto) [place] % (Auto) Lymph # Seg Neutrophils % Heparin Anti-Xa Level < 0.10 L 0.26 L < 0.10 L BUN Glucose Ur Specific [place]
[2019-02-14] MEDS ORDERED: NACL 0.9% 1000 ML 1,000 ML IV SCH (13:00)
[2019-02-14] MEDS ORDERED: LIDOCAINE VISCOUS 2% ONE (13:15)
[2019-02-14] MEDS ORDERED: HURRICAINE ONE 20% TOPICAL SPRAY MM ×2 (13:15→13:18)
[2019-02-14] MEDS ORDERED: XYLOCAINE 2% INFILTRATI ONE ×2 (13:15→13:42)
[2019-02-14] MEDS ORDERED: LIDOCAINE VISCOUS 2% PO ONE (13:15)
[2019-02-14] MEDS ORDERED: ROBINUL ONE (13:30)
[2019-02-14] MEDS ORDERED: DIPRIVAN 10 MG/ML IV ONE ×2 (13:32→13:33)
[2019-02-14] MEDS ORDERED: SUBLIMAZE ONE (13:32)
--- NOTE | 2019-02-14 14:04 | Procedure Note ---
Date of procedure: 02/14/19 Pre-op diagnosis: Cystic lesion RUL, new Post-op diagnosis: same Procedure: Fiberoptic bronchscopy Patient consent was signed and witnessed In the bronch suite, monitored anesthesia care per anesthesia Patient was on continuous EKG monitoring, pulse oximetry [place] precautions addressed. Time out done. Right nare anesthetized with local lidocaine, Fiberoptic bronchoscope (FOB)inserted through the right nare, posterior bertin pharyngeal space- whitish plaques consistent with oropharygyngeal candidiasis( see pictuyres) FOB inserted past the voacal chords into the lungs. The trachea was normal with a sharp liz. The left lung was inspected- JULIAN, lingula and LLL take were normal. No endobronchial lesions seen. The right lung was inspected, the RUL, RML and the RLL did not have any endobronchial lessions noted. The FOB was wedged in the right upper lobe anterior subsegment, BAL obtained. 20cc of fluid with a return of 15cc. Cytology brushings were obtained. BAL was also obtained from the RLL- 15 cc of fluid inserted with a return of 10cc. Patient tolerated the procedure well. Has some coughing which improved with local lidocaine. Patient will be monitored until he meets criteria for discharge. Recommendations -AFB smear and culture, Silverstain for PJP -Fungal smear and culture -Respiratory cultures -Cytology. -OK to resume heparin in 2 hours after he returns to his in patient room -HIV screen Anesthesia: MAC Estimated blood loss: none Specimen disposition: to lab Condition: stable Disposition: floor
[2019-02-14] MEDS: MORPHINE IV PRN ×2 (15:03→21:56)
--- NOTE | 2019-02-14 15:48 | Consultation ---
History of Present Illness - Reason for Consult Consult date: 02/14/19 - History of Present Illness 58 yo M PMHx PE, DM2, HTN, seizure disorder, tobacco abuse admitted with bilateral flank pain. His complaints began approximately 2 days prior to admission and became progresively worse. The pain was sharp and worsened with rest. Otherwise, he denies fevers, sweats, chills. He notes a history of PE in 2017 and is not currently on anticoagulation. He denies any dysphagia but reports some odynophagia. He also notes pleuritic chest pain, SOB, and fatigue. Afebrile since admission with a normal white count. Not currently receiving antibiotics. Cultures pending in the lab and not available for review as yet. Pulm performed a bronchoscopy and noted oropharyngeal candidiasis and took pictures (not yet in chart). He denies any history of IV drug use. Denies high risk sexual behaviour. Has not travelled internationally. Was in [place] [facility] years ago, reports negative Mantoux at that time. Never in the . Does not use inhalers. Imaging personally reviewed: CTA: b/l PE with infarction. RUL cavitary lesion seen. CTAP: no abnormality Echo: no vegetations Doppler: No DVT identified. Review of Systems: Bold if positive, otherwise negative General: fevers, chills, rigors HEENT: visual disturbance, diplopia, eye pain, odynophagia Respiratory: cough, sputum, hemoptysis, shortness of breath Cardiovascular: chest pain, syncope Gastrointestinal: nausea, vomiting, diarrhea, abdominal pain Genitourinary: dysuria, hematuria, flank pain Musculoskeletal: neck pain, back pain, joint pain, edema Neurologic: headaches, seizures Hematologic: easy bruising or bleeding Endocrine: night sweats, acute weight loss Skin: rash, jaundice, redness Psychiatric: suicidal, homicidal ideation Past History Past Medical History: diabetes, hypertension, pulmonary embolism (Xarelto in past not currently on anticoagulation), seizures Past Surgical History: Other (back surgery) Social history: smoking (current everyday smoker) Family history: diabetes Medications and Allergies Allergies Allergy/AdvReac Type Severity Reaction Status Date / Time hydrocodone bitartrate AdvReac Nausea Verified 01/19/17 10:51 [From Lortab] propoxyphene napsylate AdvReac Nausea Verified 01/19/17 10:51 [From Darvocet-N 100] Home Medications Medication Instructions Recorded Confirmed Last Taken Type Ibuprofen [Motrin 600 MG tab] 600 mg PO Q8H PRN #20 tablet 01/12/17 02/12/19 02/02/19 Rx Lisinopril [Zestril TAB] 40 mg PO QDAY 30 Days tablet 01/12/17 02/12/19 02/12/19 Rx Phenytoin [Dilantin] 200 mg PO QHS 30 Days capsule 01/12/17 02/12/19 02/12/19 Rx predniSONE [Deltasone] 20 mg PO QDAY 02/12/19 02/12/19 02/12/19 History Active Meds: Active Medications Acetaminophen (Tylenol) 650 mg PO Q4H PRN PRN Reason: Pain MILD(1-3)/Fever >100.5/BLACK Dextrose (D50w (25gm) Syringe) 50 ml IV PRN PRN PRN Reason: Hypoglycemia Heparin Sodium/Sodium Chloride (Heparin/ 0.45% Nacl-25,000 Unit/500 Ml) 25,000 unit in 500 mls @ 16 mls/hr IV TITR [facility]; Protocol Last Titration: 02/14/19 04:03 Dose: 0 units/hr, 0 mls/hr Documented by: Sodium Chloride (Nacl 0.9% 1000 Ml) 1,000 mls @ 50 mls/hr IV DIRECT [facility] Last Admin: 02/14/19 13:25 Dose: 50 mls/hr Documented by: Insulin Human Lispro (Humalog) 0 unit SUB-Q ACHS [facility]; Protocol Last Admin: 02/14/19 12:34 Dose: Not Given Documented by: Lisinopril (Zestril) 40 mg PO QDAY [facility] Last Admin: 02/13/19 11:17 Dose: 40 mg Documented by: Morphine Sulfate (Morphine) 2 mg IV Q4H PRN PRN Reason: Pain, Moderate (4-6) Last Admin: 02/14/19 15:03 Dose: 2 mg Documented by: Nicotine (Habitrol) 14 mg TD QDAY [facility] Last Admin: 02/13/19 11:13 Dose: 14 mg Documented by: Ondansetron HCl (Zofran) 4 mg IV Q6H PRN PRN Reason: Nausea And Vomiting Phenytoin (Dilantin) 200 mg PO QHS [facility] Last Admin: 02/13/19 21:51 Dose: 200 mg Documented by: Sodium Chloride (Sodium Chloride Flush Syringe 10 Ml) 10 ml IV BID [facility] Last Admin: 02/13/19 21:52 Dose: 10 ml Documented by: Sodium Chloride (Sodium Chloride Flush Syringe 10 Ml) 10 ml IV PRN PRN PRN Reason: LINE FLUSH Physical Examination - Physical Exam Narrative exam: Physical Exam: Constitutional: Alert, cooperative. No acute distress Head, Ears, Nose: Normocephalic, atraumatic. External ears, nose normal Eyes: Conjunctivae/corneas clear. No icterus. No ptosis. Neck: Supple, no meningeal signs Oral: dentition fair, no thrush Cardiovascular: S1, S2 normal. Respiratory: Good air entry, clear to auscultation bilaterally GI: Soft, non-tender; bowel sounds normal. No peritoneal signs. Musculoskeletal: No pedal edema, no cyanosis. Skin: No rash or abscess Hem/Lymphatic: No palpable cervical or supraclavicular nodes. No lymphangitis Psych: Mood ok. Affect normal Neurological: Awake, alert, oriented. No gross abnormality - Constitutional Vitals: Vital Signs Temp Pulse Resp BP Pulse Ox 98.6 F 79 15 119/78 97 02/14/19 13:50 02/14/19 14:20 02/14/19 14:20 02/14/19 14:20 02/14/19 14:20 Temperature -Last 24 Hours Temperature 98.6 F Temperature 98.9 F Temperature 98.9 F Temperature 99.5 F Temperature 98.3 F Temperature 98.3 F Temperature 98.2 F Temperature 98.4 F Temperature 98.6 F Results - Labs CBC & Chem 7: 02/14/19 07:26 02/13/19 06:10 Labs: Abnormal lab results 02/13/19 02/14/19 Range/Units 22:46 07:26 Heparin Anti-Xa Level 0.26 L < 0.10 L (0.3-0.7) U.I./ml - Imaging and Cardiology CT scan - abdomen: image reviewed CT scan - chest: image reviewed Assessment and Plan Cultures: Pending A/P: 58 yo M PMHx PE, DM2, HTN, seizure disorder, tobacco abuse admitted with bilateral PE, found to have oropharyngeal Candidiasis 1. Oropharyngeal candidiasis - Would check an HIV screen on him as these lesions are common in HIV patients. Can treat with fluconazole PO 200gm daily for 7-10 days. Minimal other risk factor for Candidiasis. 2. RUL cavitary lesions - AFB obtained from bronch, need 3x AFB smears to rule out TB. Follow up bronch results. Would not start empiric antibiotics at this t rakan as he is completely stable. 3. Bilateral pulmonary emboli - recurrent thrombotic events over the last two years. ?Cancer yielding hypercoaguable state? 4. DM2 5. HTN Recs: - fluconazole 200mg daily x 7-10 days - HIV screen - 3x AFB cultures obtained 8 hours apart - airborne precautions while ruling out TB - follow up bronchoscopy cultures - hold off on systemic antibiotics for now given patient stability. Thank you for the consult, we will continue to follow. MD Stacy [facility] ([facility]) M: [phone] O: [phone] F: [phone]
[2019-02-14] MEDS: SODIUM CHLORIDE FLUSH SYRINGE 10 ML IV SCH ×2 (16:35→21:57)
[2019-02-14] MEDS: HABITROL TD SCH (16:35)
[2019-02-14] MEDS: ZESTRIL PO SCH (16:37)
[2019-02-14] MEDS: DIFLUCAN PO SCH (21:55)
[2019-02-14] MEDS: DILANTIN PO SCH (21:55)
[2019-02-15 05:01] LABS: Hematocrit 37.6 % (35.5-45.6); Hemoglobin 13.1 gm/dl (11.8-15.2); Mean Corpuscular HGB Conc 35 % (32-34); Mean Corpuscular Volume 93 fl (84-94); Platelet Count 238 K/mm3 (140-440); Red Blood Count 4.04 M/mm3 (3.65-5.03); Red Cell Distribution Width 14.2 % (13.2-15.2)
[2019-02-15 05:25] LABS: BUN/Creatinine Ratio 6; Blood Urea Nitrogen 6 mg/dL (9-20); Calcium 8.8 mg/dL (8.4-10.2); Hemolysis Index 7
[2019-02-15] MEDS: MORPHINE IV PRN ×3 (07:17→19:55)
[2019-02-15] MEDS: HumaLOG SUB-Q SCH ×4 (08:08→21:43)
[2019-02-15] MEDS: HEPARIN/ 0.45% NACL-25,000 UNIT/500 ML 25,000 UNIT/500 ML BAG IV SCH ×2 (08:11→10:39)
[2019-02-15] MEDS: DIFLUCAN PO SCH (10:38)
[2019-02-15] MEDS: HABITROL TD SCH (10:38)
[2019-02-15] MEDS: SODIUM CHLORIDE FLUSH SYRINGE 10 ML IV SCH ×2 (10:38→21:47)
[2019-02-15] MEDS: ZESTRIL PO SCH (10:38)
--- NOTE | 2019-02-15 11:40 | Progress Note ---
Assessment and Plan Cultures: Pending A/P: 58 yo M PMHx PE, DM2, HTN, seizure disorder, tobacco abuse admitted with bilateral PE, found to have oropharyngeal Candidiasis 1. Oropharyngeal candidiasis - rapid HIV test NEGATIVE. Can treat with fluconazole PO 200gm daily for 7-10 days. Minimal other risk factor for Ca ndidiasis. 2. Incidental RUL cavitary lesion- unclear etiology, patient is asymptomatic, no risk factor for TB. Pretest prob for pulmonary active TB is low. CTA shows no hilar or mediastinal adenopathycavitary lesion in the right upper lobe measuring 2.5 cm. Bilateral pulmonary emboli of moderate severity with probable associated pulmonary infarctions and pleural effusions. AFB obtained from bronch pending. Would not start empiric antibiotics at this time as he is completely stable. 3. Bilateral pulmonary emboli - recurrent thrombotic events over the last two years. ?Cancer yielding hypercoaguable state? 4. DM2 5. HTN Recs: - continue fluconazole 200mg daily x 7-10 days - send HIV 4th gen and HIV-VL - send Quantiferon - airborne precautions while ruling out TB - follow up bronchoscopy AFB if negative ok to stop isolation, pretest prob for pulmonary active TB is low as he is asymptomatic. - hold off on systemic antibiotics for now given patient stability. Will follow Agustina Panda MD [facility] ([facility]) Office [phone] Subjective Date of service: 02/15/19 Principal diagnosis: lung cavity Interval history: Patient feels better, still c/o johnny flank pain. No fever Objective - Exam Narrative Exam: General appearance: Alert in NAD Eyes: anicteric sclerae, moist conjunctivae; no lid-lag; PERRLA HENT: Atraumatic; oropharynx clear with moist mucous membranes and no mucosal ulcerations/no oral thrush; normal hard and soft palate. Lungs: CTA, with normal respiratory effort and no intercostal retractions CV: RRR no murmur Abdomen: Soft, non-tender; no masses or hepatosplenomegaly Extremities: no edema, no cyanosis Skin: No rash. Psych: Appropriate affect, alert and oriented to person, place and time. Neuro: alert and oriented x 3. Moving all extermities - Constitutional Vitals: Vital Signs Temp Pulse Resp BP Pulse Ox 99.6 F 54 L 18 142/78 99 02/15/19 07:29 02/15/19 07:29 02/15/19 07:29 02/15/19 07:29 02/15/19 07:29 Temperature -Last 24 Hours Temperature 99.6 F Temperature 98.3 F Temperature 98.3 F Temperature 98.5 F Temperature 98.6 F Temperature 98.9 F Temperature 98.9 F - Labs CBC & Chem 7: 02/15/19 04:18 02/15/19 04:18 Labs: Abnormal lab results 02/14/19 02/14/19 02/14/19 Range/Units 16:28 21:25 23:13 MCHC (32-34) % Heparin Anti-Xa Level 0.10 L (0.3-0.7) U.I./ml Chloride (98-107) mmol/L BUN (9-20) mg/dL POC Glucose 135 H 119 H (70-105) 02/15/19 02/15/19 Range/Units 04:18 04:18 MCHC 35 H (32-34) % Heparin Anti-Xa Level (0.3-0.7) U.I./ml Chloride 97.6 L (98-107) mmol/L BUN 6 L (9-20) mg/dL POC Glucose (70-105)
--- NOTE | 2019-02-15 14:10 | Progress Note ---
Assessment and Plan Pulmonary Embolism Right UL cystic lesion Tobacco use disorder/Nicotine dependence- on going Pulmonary infiltrates, possibly pulmonary infarcts HYN h/o Seizure disorder Type 2 DM - Continue with anticoagulation -Follow up BAL microbiology and cytology results -Smoking cessation counselling -Nicotine withdrawal precautions -Hypercoagulable work up on going -Currently on Diflucan for oropharynygeal candidiasis per ID. -Continue all supportive care, needs age appropriate cancer screening done Subjective Date of service: 02/15/19 Principal diagnosis: lung cavity Interval history: Patient is seen today for: RUL cavitary lesion; bilateral pulmonary emboli; Seen and examined at bedside; 24hour events reviewed; nursing and respiratory care staff consulted; no adverse overnight events reported to me; Vitals, labs, medications, chart reviewed.s/p fiberoptic bronchoscopy, currently on airborne isolation He denies any chest pain, no shortness of breath, no fevers or chills at this time. No cough, no hemoptysis. On going back pain which he says is improving. Objective - Exam Narrative Exam: General appearance: Alert in NAD Eyes: anicteric sclerae, moist conjunctivae; no lid-lag; PERRLA HENT: Atraumatic; oropharynx clear with moist mucous membranes and no mucosal ulcerations/no oral thrush; normal hard and soft palate. Lungs: CTA, with normal respiratory effort and no intercostal retractions CV: RRR no murmur Abdomen: Soft, non-tender; no masses or hepatosplenomegaly Extremities: no edema, no cyanosis Skin: No rash. Psych: Appropriate affect, alert and oriented to person, place and time. Neuro: alert and oriented x 3. Moving all extremities Vital Signs - 12hr 02/15/19 02/15/19 02/15/19 04:00 04:38 07:17 Temperature 98.3 F Pulse Rate 53 L 54 L Respiratory 18 20 Rate Blood Pressure 145/83 O2 Sat by Pulse 98 Oximetry 02/15/19 02/15/19 02/15/19 07:29 11:45 12:20 Temperature 99.6 F 99.3 F Pulse Rate 54 L 49 L 54 L Respiratory 18 20 Rate Blood Pressure 142/78 141/81 O2 Sat by Pulse 99 98 Oximetry CBC and BMP: 02/15/19 04:18 02/15/19 04:18 ABG, PT/INR, D-dimer: PT/INR, D-dimer PT 13.5 Sec. (12.2-14.9) 02/12/19 19:57 INR 1.06 (0.87-1.13) 02/12/19 19:57 Abnormal lab findings: Abnormal Labs 02/12/19 02/12/19 02/12/19 01:20 11:22 11:22 MCV 95 H MCH MCHC Lymph % (Auto) 10.0 L [place] % (Auto) 9.5 H Lymph # 0.7 L Seg Neutrophils % 79.2 H Heparin Anti-Xa Level Chloride BUN Glucose 105 H POC Glucose Ur Specific [place] 1.036 H 02/13/19 02/13/19 02/13/19 06:10 06:10 06:10 MCV MCH 33 H MCHC 35 H Lymph % (Auto) 9.3 L [place] % (Auto) 8.2 H Lymph # 0.7 L Seg Neutrophils % 81.4 H Heparin Anti-Xa Level < 0.10 L Chloride BUN 6 L Glucose 135 H POC Glucose Ur Specific [place] 02/13/19 02/13/19 02/14/19 13:20 22:46 07:26 MCV MCH MCHC Lymph % (Auto) [place] % (Auto) Lymph # Seg Neutrophils % Heparin Anti-Xa Level < 0.10 L 0.26 L < 0.10 L Chloride BUN Glucose POC Glucose Ur Specific [place] 02/14/19 02/14/19 02/14/19 16:28 21:25 23:13 MCV MCH MCHC Lymph % (Auto) [place] % (Auto) Lymph # Seg Neutrophils % Heparin Anti-Xa Level 0.10 L Chloride BUN Glucose POC Glucose 135 H 119 H Ur Specific [place] 02/15/19 02/15/19 02/15/19 04:18 04:18 12:29 MCV MCH MCHC 35 H Lymph % (Auto) [place] % (Auto) Lymph # Seg Neutrophils % Heparin Anti-Xa Level Chloride 97.6 L BUN 6 L Glucose POC Glucose 116 H Ur Specific [place]
--- NOTE | 2019-02-15 15:45 | Progress Note ---
Assessment and Plan Assessment and plan: 58 -year-old adult male who is an ongoing smoker with history of pulmonary embolism not currently on anticoagulation, hypertension, diabetes, seizure disorder [facility] with complaints of worsening bilateral flank pain for the past 2 days. Pulmonary Embolism -CTA revealed:Bilateral pulmonary emboli of moderate severity with probable associated pulmonary infarctions and pleural effusions. Incidental right upper lobe cavitary lesion -Hx of PE 2 yrs ago Jan 2017, previously on Xarelto, not currently on anticoagulation -Started Heparin drip -Protein C , Protein S and Lupus Anticoagulation panel pending -Vascular consulted -Pulmonary consulted Right upper lobe cavitary lesion Bronchoscopy done results pending Placed on airborne isolation until TB ruled out AFB ordered [place] oropharyngeal plaques started on Diflucan ID following Hypertension -Continue to monitor BP -Resume home antihypertensive meds to optimize BP Diabetes mellitus type 2 -POC BG monitoring -SSI coverage -HbgA1C pending Hx Seizure disorder -Continue Dilantin Tobacco abuse -Current every day smoker -Counseled for cessation -Nicotine patch when necessary DVT PPX -On heparin gtt History Interval history: less chest pain No shortness of breath currently Hospitalist Physical - Physical exam Narrative exam: Gen: Not in acute distress, lying in bed, ill looking HEENT: Normocephalic, atraumatic Neck: supple, no JVD Heart: S1 and S2 reg, no murmurs, rubs or gallop Lungs: Bilateral crackles, no rhonchi, no wheeze Abd: soft, non tender, non distended, normal BS, Ext: No edema, no clubbing, no cyanosis Neuro: Awake, alert, oriented X 3, no focal neurological signs - Constitutional Vitals: Temp Pulse Resp BP Pulse Ox 99.3 F 54 L 20 141/81 98 02/15/19 11:45 02/15/19 12:20 02/15/19 11:45 02/15/19 11:45 02/15/19 11:45 Results - Labs CBC & Chem 7: 02/15/19 04:18 02/15/19 04:18 Labs: Laboratory Last Values WBC 7.1 K/mm3 (4.5-11.0) 02/15/19 04:18 RBC 4.04 M/mm3 (3.65-5.03) 02/15/19 04:18 Hgb 13.1 gm/dl (11.8-15.2) 02/15/19 04:18 Hct 37.6 % (35.5-45.6) 02/15/19 04:18 MCV 93 fl (84-94) 02/15/19 04:18 MCH 32 pg (28-32) 02/15/19 04:18 MCHC 35 % (32-34) H 02/15/19 04:18 RDW 14.2 % (13.2-15.2) 02/15/19 04:18 Plt Count 238 K/mm3 (140-440) 02/15/19 04:18 Lymph % (Auto) 9.3 % (13.4-35.0) L 02/13/19 06:10 [place] % (Auto) 8.2 % (0.0-7.3) H 02/13/19 06:10 Eos % (Auto) 0.9 % (0.0-4.3) 02/13/19 06:10 Baso % (Auto) 0.2 % (0.0-1.8) 02/13/19 06:10 Lymph # 0.7 K/mm3 (1.2-5.4) L 02/13/19 06:10 [place] # 0.6 K/mm3 (0.0-0.8) 02/13/19 06:10 Eos # 0.1 K/mm3 (0.0-0.4) 02/13/19 06:10 Baso # 0.0 K/mm3 (0.0-0.1) 02/13/19 06:10 Seg Neutrophils % 81.4 % (40.0-70.0) H 02/13/19 06:10 Seg Neutrophils # 5.8 K/mm3 (1.8-7.7) 02/13/19 06:10 PT 13.5 Sec. (12.2-14.9) 02/12/19 19:57 INR 1.06 (0.87-1.13) 02/12/19 19:57 APTT 33.0 Sec. (24.2-36.6) 02/12/19 19:57 87 % (70-140) 02/12/19 20:07 Heparin Anti-Xa Level 0.37 U.I./ml (0.3-0.7) 02/15/19 06:39 Sodium 138 mmol/L (137-145) 02/15/19 04:18 Potassium 3.8 mmol/L (3.6-5.0) 02/15/19 04:18 Chloride 97.6 mmol/L (98-107) L 02/15/19 04:18 Carbon Dioxide 27 mmol/L (22-30) 02/15/19 04:18 17 mmol/L 02/15/19 04:18 BUN 6 mg/dL (9-20) L 02/15/19 04:18 1.0 mg/dL (0.8-1.5) 02/15/19 04:18 Estimated GFR > 60 ml/min 02/15/19 04:18 6 % 02/15/19 04:18 Glucose 96 mg/dL (75-100) 02/15/19 04:18 POC Glucose 116 (70-105) H 02/15/19 12:29 4.5 % (4-6) 02/12/19 20:07 Calcium 8.8 mg/dL (8.4-10.2) 02/15/19 04:18 < 0.010 ng/mL (0.00-0.029) 02/12/19 17:30 Yellow (Yellow) 02/12/19 01:20 Clear (Clear) 02/12/19 01:20 5.0 (5.0-7.0) 02/12/19 01:20 Ur Specific [place] 1.036 (1.003-1.030) H 02/12/19 01:20 <15 mg/dl mg/dL (Negative) 02/12/19 01:20 Neg mg/dL (Negative) 02/12/19 01:20 Tr mg/dL (Negative) 02/12/19 01:20 Neg (Negative) 02/12/19 01:20 Neg (Negative) 02/12/19 01:20 Neg (Negative) 02/12/19 01:20 < 2.0 mg/dL (<2.0) 02/12/19 01:20 Ur Leukocyte Esterase Neg (Negative) 02/12/19 01:20 < 1.0 /HPF (0.0-6.0) 02/12/19 01:20 2.0 /HPF (0.0-6.0) 02/12/19 01:20 HIV 1&2 Antibody Rapid Non react (Non React) 02/14/19 15:00 Non react (Non React) 02/14/19 15:00 Active Medications - Current Medications Current Medications: Generic Name Dose Route Start Last Admin Trade Name Freq PRN Reason Stop Dose Admin Acetaminophen 650 mg 02/12/19 19:52 Tylenol PO Q4H PRN Pain MILD(1-3)/Fever >100.5/BLACK Dextrose 50 ml 02/12/19 20:01 D50w (25gm) Syringe IV PRN PRN Hypoglycemia Fluconazole 200 mg 02/14/19 17:00 02/15/19 10:38 Diflucan PO 200 mg QDAY BAILEY Administration Heparin Sodium/Sodium Chloride 25,000 unit in 500 mls @ 16 mls/hr 02/12/19 20:00 02/15/19 10:39 Heparin/ 0.45% Nacl-25,000 Unit/500 Ml IV 1,200 units/hr TITR BAILEY 24 mls/hr Administration Protocol 800 UNITS/HR Insulin Human Lispro 0 unit 02/12/19 22:00 02/15/19 12:40 Humalog SUB-Q Not Given ACHS [facility] Protocol Lisinopril 40 mg 02/13/19 10:00 02/15/19 10:38 Zestril PO 40 mg QDAY BAILEY Administration Morphine Sulfate 2 mg 02/12/19 23:02 02/15/19 14:41 Morphine IV 2 mg Q4H PRN Administration Pain, Moderate (4-6) Nicotine 14 mg 02/13/19 10:00 02/15/19 10:38 Habitrol TD 14 mg QDAY BAILEY Administration Ondansetron HCl 4 mg 02/12/19 19:52 Zofran IV Q6H PRN Nausea And Vomiting Phenytoin 200 mg 02/12/19 22:00 02/14/19 21:55 Dilantin PO 200 mg QHS BAILEY Administration Sodium Chloride 10 ml 02/12/19 22:00 02/15/19 10:38 Sodium Chloride Flush Syringe 10 Ml IV 10 ml BID BAILEY Administration Sodium Chloride 10 ml 02/12/19 19:52 Sodium Chloride Flush Syringe 10 Ml IV PRN PRN LINE FLUSH
[2019-02-15] MEDS: DILANTIN PO SCH (22:14)
[2019-02-16] MEDS: MORPHINE IV PRN ×4 (01:04→23:17)
[2019-02-16 06:25] LABS: Hematocrit 36.1 % (35.5-45.6); Hemoglobin 12.7 gm/dl (11.8-15.2)
[2019-02-16] MEDS: HEPARIN/ 0.45% NACL-25,000 UNIT/500 ML 25,000 UNIT/500 ML BAG IV SCH ×5 (07:39→17:15)
[2019-02-16] MEDS: HumaLOG SUB-Q SCH ×4 (08:00→23:08)
[2019-02-16] MEDS: ZESTRIL PO SCH (10:34)
[2019-02-16] MEDS: DIFLUCAN PO SCH (10:34)
[2019-02-16] MEDS: HABITROL TD SCH (10:34)
[2019-02-16] MEDS: SODIUM CHLORIDE FLUSH SYRINGE 10 ML IV SCH ×2 (10:35→23:19)
--- NOTE | 2019-02-16 11:56 | Progress Note ---
Assessment and Plan Cultures: 02/14/19 Bronch RUL: in progress A/P: 58 yo M PMHx PE, DM2, HTN, seizure disorder, tobacco abuse admitted with bilateral PE, found to have oropharyngeal Candidiasis 1. Oropharyngeal candidiasis - rapid HIV test NEGATIVE. Can treat with fluconazole PO 200gm daily for 7-10 days. Minimal other risk factor for Candidiasis. 2. Incidental RUL cavitary lesion- unclear etiology, patient is asymptomatic, no risk factor for TB. Pretest prob for pulmonary active TB is low. CTA shows no hilar or mediastinal adenopathycavitary lesion in the right upper lobe measuring 2.5 cm. Bilateral pulmonary emboli of moderate severity with probable associated pulmonary infarctions and pleural effusions. AFB obtained from bronch pending. Would not start empiric antibiotics at this time as he is completely stable. 3. Bilateral pulmonary emboli - recurrent thrombotic events over the last two years. ?Cancer yielding hypercoaguable state? 4. DM2 5. HTN Recs: - continue fluconazole 200mg daily ( Stop date: 02/23/19 ) - follow-up HIV 4th gen and HIV-VL - follow-up Quantiferon - airborne precautions while ruling out TB - follow up bronchoscopy AFB if negative ok to stop isolation, pretest prob for pulmonary active TB is low as he is asymptomatic ( message left with [facility]) - hold off on systemic antibiotics for now given patient stability. [facility] M: [phone] O:[phone] Subjective Date of service: 02/16/19 Principal diagnosis: lung cavity Interval history: Patient seen and examined. Reports improved respiratory symptoms. + dry cough. No fevers. Objective - Exam Narrative Exam: General appearance: Awake. Alert. No acute distress. Eyes: anicteric sclerae, moist conjunctivae; no lid-lag; PERRLA HENT: Atraumatic; oropharynx clear with moist mucous membranes and no mucosal ulcerations/no oral thrush; normal hard and soft palate. Lungs: CTA, with normal respiratory effort and no intercostal retractions CV: RRR no murmur Abdomen: Soft, non-tender; no masses or hepatosplenomegaly Extremities: no edema, no cyanosis Skin: No rash. Psych: Appropriate affect, alert and oriented to person, place and time. Neuro: alert and oriented x 3. Moving all extermities - Constitutional Vitals: Vital Signs Temp Pulse Resp BP Pulse Ox 99.1 F 48 L 16 144/84 98 02/16/19 08:30 02/16/19 08:30 02/16/19 08:30 02/16/19 08:30 02/16/19 08:30 Temperature -Last 24 Hours Temperature 99.1 F Temperature 100.5 F Temperature 98.8 F Temperature 98.6 F Temperature 99.2 F - Labs CBC & Chem 7: 02/16/19 06:08 02/15/19 04:18 Labs: Abnormal lab results 02/15/19 02/16/19 Range/Units 12:29 06:08 Heparin Anti-Xa Level 0.10 L (0.3-0.7) U.I./ml POC Glucose 116 H (70-105)
--- NOTE | 2019-02-16 12:25 | Progress Note ---
Assessment and Plan Assessment and plan: 58 -year-old adult male who is an ongoing smoker with history of pulmonary embolism not currently on anticoagulation, hypertension, diabetes, seizure disorder presents to [facility] ED with complaints of worsening bilateral flank pain for the past 2 days. Pulmonary Embolism -CTA revealed:Bilateral pulmonary emboli of moderate severity with probable associated pulmonary infarctions and pleural effusions. Incidental right upper lobe cavitary lesion -Hx of PE 2 yrs ago Jan 2017, previously on Xarelto, not currently on anticoagulation -Started Heparin drip -Protein C , Protein S and Lupus Anticoagulation panel pending -Vascular consulted -Pulmonary consulted Right upper lobe cavitary lesion Bronchoscopy done results pending Placed on airborne isolation until TB ruled out AFB X 3 ordered Whitish oropharyngeal plaques started on Diflucan ID following Hypertension -Continue to monitor BP -Resume home antihypertensive meds to optimize BP Diabetes mellitus type 2 -POC BG monitoring -SSI coverage -HbgA1C pending Hx Seizure disorder -Continue Dilantin Tobacco abuse -Current every day smoker -Counseled for cessation -Nicotine patch when necessary History Interval history: less chest pain No shortness of breath currently Hospitalist Physical - Physical exam Narrative exam: Gen: Not in acute distress, lying in bed, ill looking HEENT: Normocephalic, atraumatic Neck: supple, no JVD Heart: S1 and S2 reg, no murmurs, rubs or gallop Lungs: Bilateral crackles, no rhonchi, no wheeze Abd: soft, non tender, non distended, normal BS, Ext: No edema, no clubbing, no cyanosis Neuro: Awake, alert, oriented X 3, no focal neurological signs - Constitutional Vitals: Temp Pulse Resp BP Pulse Ox 99.1 F 48 L 16 144/84 98 02/16/19 08:30 02/16/19 08:30 02/16/19 08:30 02/16/19 08:30 02/16/19 08:30 Results - Labs CBC & Chem 7: 02/16/19 06:08 02/15/19 04:18 Labs: Laboratory Last Values WBC 7.1 K/mm3 (4.5-11.0) 02/15/19 04:18 RBC 4.04 M/mm3 (3.65-5.03) 02/15/19 04:18 Hgb 12.7 gm/dl (11.8-15.2) 02/16/19 06:08 Hct 36.1 % (35.5-45.6) 02/16/19 06:08 MCV 93 fl (84-94) 02/15/19 04:18 MCH 32 pg (28-32) 02/15/19 04:18 MCHC 35 % (32-34) H 02/15/19 04:18 RDW 14.2 % (13.2-15.2) 02/15/19 04:18 Plt Count 237 K/mm3 (140-440) 02/16/19 06:08 Lymph % (Auto) 9.3 % (13.4-35.0) L 02/13/19 06:10 [place] % (Auto) 8.2 % (0.0-7.3) H 02/13/19 06:10 Eos % (Auto) 0.9 % (0.0-4.3) 02/13/19 06:10 Baso % (Auto) 0.2 % (0.0-1.8) 02/13/19 06:10 Lymph # 0.7 K/mm3 (1.2-5.4) L 02/13/19 06:10 [place] # 0.6 K/mm3 (0.0-0.8) 02/13/19 06:10 Eos # 0.1 K/mm3 (0.0-0.4) 02/13/19 06:10 Baso # 0.0 K/mm3 (0.0-0.1) 02/13/19 06:10 Seg Neutrophils % 81.4 % (40.0-70.0) H 02/13/19 06:10 Seg Neutrophils # 5.8 K/mm3 (1.8-7.7) 02/13/19 06:10 PT 13.5 Sec. (12.2-14.9) 02/12/19 19:57 INR 1.06 (0.87-1.13) 02/12/19 19:57 APTT 33.0 Sec. (24.2-36.6) 02/12/19 19:57 87 % (70-140) 02/12/19 20:07 Heparin Anti-Xa Level 0.10 U.I./ml (0.3-0.7) L 02/16/19 06:08 Sodium 138 mmol/L (137-145) 02/15/19 04:18 Potassium 3.8 mmol/L (3.6-5.0) 02/15/19 04:18 Chloride 97.6 mmol/L (98-107) L 02/15/19 04:18 Carbon Dioxide 27 mmol/L (22-30) 02/15/19 04:18 17 mmol/L 02/15/19 04:18 BUN 6 mg/dL (9-20) L 02/15/19 04:18 1.0 mg/dL (0.8-1.5) 02/15/19 04:18 Estimated GFR > 60 ml/min 02/15/19 04:18 6 % 02/15/19 04:18 Glucose 96 mg/dL (75-100) 02/15/19 04:18 POC Glucose 82 (70-105) 02/16/19 11:56 4.5 % (4-6) 02/12/19 20:07 Calcium 8.8 mg/dL (8.4-10.2) 02/15/19 04:18 < 0.010 ng/mL (0.00-0.029) 02/12/19 17:30 TSH 4.040 mlU/mL (0.270-4.200) 02/16/19 07:55 Free T4 1.08 ng/dL (0.76-1.46) 02/16/19 07:55 Yellow (Yellow) 02/12/19 01:20 Clear (Clear) 02/12/19 01:20 5.0 (5.0-7.0) 02/12/19 01:20 Ur Specific [place] 1.036 (1.003-1.030) H 02/12/19 01:20 <15 mg/dl mg/dL (Negative) 02/12/19 01:20 Neg mg/dL (Negative) 02/12/19 01:20 Tr mg/dL (Negative) 02/12/19 01:20 Neg (Negative) 02/12/19 01:20 Neg (Negative) 02/12/19 01:20 Neg (Negative) 02/12/19 01:20 < 2.0 mg/dL (<2.0) 02/12/19 01:20 Ur Leukocyte Esterase Neg (Negative) 02/12/19 01:20 < 1.0 /HPF (0.0-6.0) 02/12/19 01:20 2.0 /HPF (0.0-6.0) 02/12/19 01:20 HIV 1&2 Antibody Rapid Non react (Non React) 02/14/19 15:00 Non react (Non React) 02/14/19 15:00 Active Medications - Current Medications Current Medications: Generic Name Dose Route Start Last Admin Trade Name Freq PRN Reason Stop Dose Admin Acetaminophen 650 mg 02/12/19 19:52 Tylenol PO Q4H PRN Pain MILD(1-3)/Fever >100.5/BLACK Dextrose 50 ml 02/12/19 20:01 D50w (25gm) Syringe IV PRN PRN Hypoglycemia Fluconazole 200 mg 02/14/19 17:00 02/16/19 10:34 Diflucan PO 200 mg QDAY BAILEY Administration Heparin Sodium/Sodium Chloride 25,000 unit in 500 mls @ 16 mls/hr 02/12/19 20:00 02/16/19 10:34 Heparin/ 0.45% Nacl-25,000 Unit/500 Ml IV 1,300 units/hr TITR BAILEY 26 mls/hr Administration Protocol 800 UNITS/HR Insulin Human Lispro 0 unit 02/12/19 22:00 02/15/19 21:43 Humalog SUB-Q Not Given ACHS [facility] Protocol Lisinopril 40 mg 02/13/19 10:00 02/16/19 10:34 Zestril PO 40 mg QDAY BAILEY Administration Morphine Sulfate 2 mg 02/12/19 23:02 02/16/19 05:38 Morphine IV 2 mg Q4H PRN Administration Pain, Moderate (4-6) Nicotine 14 mg 02/13/19 10:00 02/16/19 10:34 Habitrol TD 14 mg QDAY BAILEY Administration Ondansetron HCl 4 mg 02/12/19 19:52 Zofran IV Q6H PRN Nausea And Vomiting Phenytoin 200 mg 02/12/19 22:00 02/15/19 22:14 Dilantin PO 200 mg QHS BAILEY Administration Sodium Chloride 10 ml 02/12/19 22:00 02/16/19 10:35 Sodium Chloride Flush Syringe 10 Ml IV 10 ml BID BAILEY Administration Sodium Chloride 10 ml 02/12/19 19:52 Sodium Chloride Flush Syringe 10 Ml IV PRN PRN LINE FLUSH
--- NOTE | 2019-02-16 13:53 | Progress Note ---
Assessment and Plan Pulmonary Embolism Right UL cystic lesion Tobacco use disorder/Nicotine dependence- on going Pulmonary infiltrates, possibly pulmonary infarcts HYN h/o Seizure disorder Type 2 DM - Continue with anticoagulation -Follow up BAL microbiology and cytology results -Smoking cessation counselling -Nicotine withdrawal precautions -Hypercoagulable work up on going -Currently on Diflucan for oropharynygeal candidiasis per ID. -Continue all supportive care, needs age appropriate cancer screening done -Continue all supportive care Subjective Date of service: 02/16/19 Principal diagnosis: lung cavity Interval history: Patient is seen today for: RUL cavitary lesion; bilateral pulmonary emboli; Seen and examined at bedside; 24hour events reviewed; nursing and respiratory care staff consulted; no adverse overnight events reported to me; Vitals, labs, medications, chart reviewed.s/p fiberoptic bronchoscopy, currently on airborne isolation He denies any chest pain, no shortness of breath, no fevers or chills at this time. No cough, no hemoptysis. On going back pain which he says is improving. No new issues, on room air Objective Vital Signs - 12hr 02/16/19 02/16/19 02/16/19 04:33 08:30 12:00 Temperature 100.5 F H 99.1 F Pulse Rate 51 L 48 L 51 L Respiratory 20 16 Rate Blood Pressure 133/82 144/84 O2 Sat by Pulse 99 98 Oximetry CBC and BMP: 02/16/19 06:08 02/15/19 04:18 ABG, PT/INR, D-dimer: PT/INR, D-dimer PT 13.5 Sec. (12.2-14.9) 02/12/19 19:57 INR 1.06 (0.87-1.13) 02/12/19 19:57 Abnormal lab findings: Abnormal Labs 02/12/19 02/12/19 02/12/19 01:20 11:22 11:22 MCV 95 H MCH MCHC Lymph % (Auto) 10.0 L [place] % (Auto) 9.5 H Lymph # 0.7 L Seg Neutrophils % 79.2 H Heparin Anti-Xa Level Chloride BUN Glucose 105 H POC Glucose Ur Specific [place] 1.036 H 02/13/19 02/13/19 02/13/19 06:10 06:10 06:10 MCV MCH 33 H MCHC 35 H Lymph % (Auto) 9.3 L [place] % (Auto) 8.2 H Lymph # 0.7 L Seg Neutrophils % 81.4 H Heparin Anti-Xa Level < 0.10 L Chloride BUN 6 L Glucose 135 H POC Glucose Ur Specific [place] 02/13/19 02/13/19 02/14/19 13:20 22:46 07:26 MCV MCH MCHC Lymph % (Auto) [place] % (Auto) Lymph # Seg Neutrophils % Heparin Anti-Xa Level < 0.10 L 0.26 L < 0.10 L Chloride BUN Glucose POC Glucose Ur Specific [place] 02/14/19 02/14/19 02/14/19 16:28 21:25 23:13 MCV MCH MCHC Lymph % (Auto) [place] % (Auto) Lymph # Seg Neutrophils % Heparin Anti-Xa Level 0.10 L Chloride BUN Glucose POC Glucose 135 H 119 H Ur Specific [place] 02/15/19 02/15/19 02/15/19 04:18 04:18 12:29 MCV MCH MCHC 35 H Lymph % (Auto) [place] % (Auto) Lymph # Seg Neutrophils % Heparin Anti-Xa Level Chloride 97.6 L BUN 6 L Glucose POC Glucose 116 H Ur Specific [place] 02/16/19 06:08 MCV MCH MCHC Lymph % (Auto) [place] % (Auto) Lymph # Seg Neutrophils % Heparin Anti-Xa Level 0.10 L Chloride BUN Glucose POC Glucose Ur Specific [place]
[2019-02-16 14:34] LABS: Protein S, Free 122 % normal (57-171); Protein S, Total 107 % normal (70-140)
[2019-02-16] MEDS: DILANTIN PO SCH (23:18)
[2019-02-17] MEDS: MORPHINE IV PRN ×3 (06:02→20:18)
[2019-02-17] MEDS: HumaLOG SUB-Q SCH ×4 (08:53→21:49)
[2019-02-17] MEDS: ZESTRIL PO SCH (11:11)
[2019-02-17] MEDS: DIFLUCAN PO SCH (11:11)
[2019-02-17] MEDS: HABITROL TD SCH (11:11)
[2019-02-17] MEDS: SODIUM CHLORIDE FLUSH SYRINGE 10 ML IV SCH ×3 (11:12→21:49)
[2019-02-17] MEDS: HEPARIN/ 0.45% NACL-25,000 UNIT/500 ML 25,000 UNIT/500 ML BAG IV SCH (11:37)
--- NOTE | 2019-02-17 11:38 | Progress Note ---
Assessment and Plan Assessment and plan: Patient is 58 year old who is an ongoing smoker with history of pulmonary embolism, hypertension, diabetes, seizure disorder presents to [facility] ED with complaints of bilateral flank pain. Pt states that he's had progressively worsening bilateral flank pain for 2 days. Patient stated that he feels like he is having "kidney stones". Pt states that he had PE in 2017 and was on Xarelto for a period, but it was discontinued and currently he is not on any form of anticoagulation. CTA revealed Bilateral pulmonary emboli of moderate severity with probable associated pulmonary infarctions and pleural effusions. Incidental right upper lobe cavitary lesion. He was started on heparin drip and admitted. Vascular surgeon, Pulmonology and ID physician consulted and evaluated him. Bronchoscopy was done 02/14/[address] Malhotra and specimen sent for AFB, PCP. he is currently on heparin drip, feels better, awaiting Microbiology results. Pulmonary Embolism -CTA revealed:Bilateral pulmonary emboli of moderate severity with probable associated pulmonary infarctions and pleural effusions. Incidental right upper lobe cavitary lesion -Hx of PE 2 yrs ago Jan 2017, previously on Xarelto, not currently on anticoa gulation, on admission -Started Heparin drip -Protein C , Protein S and Lupus Anticoagulation panel pending -Vascular consulted -Pulmonary consulted Right upper lobe cavitary lesion Bronchoscopy done results pending Placed on airborne isolation until TB ruled out AFB X 3 ordered Whitish oropharyngeal plaques seen on bronchoscopy started on Diflucan ID following Hypertension -Continue to monitor BP -Resume home antihypertensive meds to optimize BP Diabetes mellitus type 2 -POC BG monitoring -SSI coverage -HbgA1C pending Hx Seizure disorder -Continue Dilantin Tobacco abuse -Current every day smoker -Counseled for cessation -Nicotine patch when necessary History Interval history: less chest pain No shortness of breath currently No fever Hospitalist Physical - Physical exam Narrative exam: Gen: Not in acute distress, lying in bed, ill looking HEENT: Normocephalic, atraumatic Neck: supple, no JVD Heart: S1 and S2 reg, no murmurs, rubs or gallop Lungs: Bilateral crackles, no rhonchi, no wheeze Abd: soft, non tender, non distended, normal BS, Ext: No edema, no clubbing, no cyanosis Neuro: Awake, alert, oriented X 3, no focal neurological signs - Constitutional Vitals: Temp Pulse Resp BP Pulse Ox 99.0 F 48 L 12 146/79 95 02/17/19 08:07 02/17/19 11:11 02/17/19 08:07 02/17/19 11:11 02/17/19 08:07 Results - Labs CBC & Chem 7: 02/16/19 06:08 02/15/19 04:18 Labs: Laboratory Last Values WBC 7.1 K/mm3 (4.5-11.0) 02/15/19 04:18 RBC 4.04 M/mm3 (3.65-5.03) 02/15/19 04:18 Hgb 12.7 gm/dl (11.8-15.2) 02/16/19 06:08 Hct 36.1 % (35.5-45.6) 02/16/19 06:08 MCV 93 fl (84-94) 02/15/19 04:18 MCH 32 pg (28-32) 02/15/19 04:18 MCHC 35 % (32-34) H 02/15/19 04:18 RDW 14.2 % (13.2-15.2) 02/15/19 04:18 Plt Count 237 K/mm3 (140-440) 02/16/19 06:08 Lymph % (Auto) 9.3 % (13.4-35.0) L 02/13/19 06:10 [place] % (Auto) 8.2 % (0.0-7.3) H 02/13/19 06:10 Eos % (Auto) 0.9 % (0.0-4.3) 02/13/19 06:10 Baso % (Auto) 0.2 % (0.0-1.8) 02/13/19 06:10 Lymph # 0.7 K/mm3 (1.2-5.4) L 02/13/19 06:10 [place] # 0.6 K/mm3 (0.0-0.8) 02/13/19 06:10 Eos # 0.1 K/mm3 (0.0-0.4) 02/13/19 06:10 Baso # 0.0 K/mm3 (0.0-0.1) 02/13/19 06:10 Seg Neutrophils % 81.4 % (40.0-70.0) H 02/13/19 06:10 Seg Neutrophils # 5.8 K/mm3 (1.8-7.7) 02/13/19 06:10 PT 13.5 Sec. (12.2-14.9) 02/12/19 19:57 INR 1.06 (0.87-1.13) 02/12/19 19:57 APTT 33.0 Sec. (24.2-36.6) 02/12/19 19:57 see below H 02/12/19 20:07 87 % (70-140) 02/12/19 20:07 122 % normal (57-171) 02/12/19 20:07 107 % normal (70-140) 02/12/19 20:07 Heparin Anti-Xa Level 0.10 U.I./ml (0.3-0.7) L 02/17/19 05:40 Sodium 138 mmol/L (137-145) 02/15/19 04:18 Potassium 3.8 mmol/L (3.6-5.0) 02/15/19 04:18 Chloride 97.6 mmol/L (98-107) L 02/15/19 04:18 Carbon Dioxide 27 mmol/L (22-30) 02/15/19 04:18 17 mmol/L 02/15/19 04:18 BUN 6 mg/dL (9-20) L 02/15/19 04:18 1.0 mg/dL (0.8-1.5) 02/15/19 04:18 Estimated GFR > 60 ml/min 02/15/19 04:18 6 % 02/15/19 04:18 Glucose 96 mg/dL (75-100) 02/15/19 04:18 POC Glucose 81 (70-105) 02/17/19 07:19 4.5 % (4-6) 02/12/19 20:07 Calcium 8.8 mg/dL (8.4-10.2) 02/15/19 04:18 < 0.010 ng/mL (0.00-0.029) 02/12/19 17:30 TSH 4.040 mlU/mL (0.270-4.200) 02/16/19 07:55 Free T4 1.08 ng/dL (0.76-1.46) 02/16/19 07:55 Yellow (Yellow) 02/12/19 01:20 Clear (Clear) 02/12/19 01:20 5.0 (5.0-7.0) 02/12/19 01:20 Ur Specific [place] 1.036 (1.003-1.030) H 02/12/19 01:20 <15 mg/dl mg/dL (Negative) 02/12/19 01:20 Neg mg/dL (Negative) 02/12/19 01:20 Tr mg/dL (Negative) 02/12/19 01:20 Neg (Negative) 02/12/19 01:20 Neg (Negative) 02/12/19 01:20 Neg (Negative) 02/12/19 01:20 < 2.0 mg/dL (<2.0) 02/12/19 01:20 Ur Leukocyte Esterase Neg (Negative) 02/12/19 01:20 < 1.0 /HPF (0.0-6.0) 02/12/19 01:20 2.0 /HPF (0.0-6.0) 02/12/19 01:20 HIV 1&2 Antibody Rapid Non react (Non React) 02/14/19 15:00 Non react (Non React) 02/14/19 15:00 Active Medications - Current Medications Current Medications: Generic Name Dose Route Start Last Admin Trade Name Freq PRN Reason Stop Dose Admin Acetaminophen 650 mg 02/12/19 19:52 Tylenol PO Q4H PRN Pain MILD(1-3)/Fever >100.5/BLACK Dextrose 50 ml 02/12/19 20:01 D50w (25gm) Syringe IV PRN PRN Hypoglycemia Fluconazole 200 mg 02/14/19 17:00 02/17/19 11:11 Diflucan PO 200 mg QDAY [facility] Administration Heparin Sodium/Sodium Chloride 25,000 unit in 500 mls @ 16 mls/hr 02/12/19 20:00 02/17/19 11:37 Heparin/ 0.45% Nacl-25,000 Unit/500 Ml IV 1,450 units/hr TITR BAILEY 29 mls/hr Administration Protocol 800 UNITS/HR Insulin Human Lispro 0 unit 02/12/19 22:00 02/17/19 08:53 Humalog SUB-Q Not Given ACHS [facility] Protocol Lisinopril 40 mg 02/13/19 10:00 02/17/19 11:11 Zestril PO 40 mg QDAY BAILEY Administration Morphine Sulfate 2 mg 02/12/19 23:02 02/17/19 06:02 Morphine IV 2 mg Q4H PRN Administration Pain, Moderate (4-6) Nicotine 14 mg 02/13/19 10:00 02/17/19 11:11 Habitrol TD 14 mg QDAY BAILEY Administration Ondansetron HCl 4 mg 02/12/19 19:52 Zofran IV Q6H PRN Nausea And Vomiting Phenytoin 200 mg 02/12/19 22:00 02/16/19 23:18 Dilantin PO 200 mg QHS BAILEY Administration Sodium Chloride 10 ml 02/12/19 22:00 02/17/19 11:12 Sodium Chloride Flush Syringe 10 Ml IV 10 ml BID BAILEY Administration Sodium Chloride 10 ml 02/12/19 19:52 Sodium Chloride Flush Syringe 10 Ml IV PRN PRN LINE FLUSH
--- NOTE | 2019-02-17 15:42 | Progress Note ---
Assessment and Plan Pulmonary Embolism Right UL cystic lesion Tobacco use disorder/Nicotine dependence- on going Pulmonary infiltrates, possibly pulmonary infarcts HYN h/o Seizure disorder Type 2 DM - Continue with anticoagulation, transition to NOAC -Follow up BAL microbiology, AFB and cytology results -Smoking cessation counselling, on going. -Nicotine withdrawal precautions -Currently on Diflucan for oropharynygeal candidiasis per ID, complete course. -Continue all supportive care, needs age appropriate cancer screening done -Discharge planning once AFB smear results are available Subjective Date of service: 02/17/19 Principal diagnosis: lung cavity Interval history: Patient is seen today for: RUL cavitary lesion; bilateral pulmonary emboli; Seen and examined at bedside; 24hour events reviewed; nursing and respiratory care staff consulted; no adverse overnight events reported to me; Vitals, labs, medications, chart reviewed.s/p fiberoptic bronchoscopy, currently on airborne isolation He denies any chest pain, no shortness of breath, no fevers or chills at this time. No cough, no hemoptysis. No new issues, on room air Objective - Exam Narrative Exam: Gen: Not in acute distress, lying in bed HEENT: Normocephalic, atraumatic Neck: supple, no JVD Heart: S1 and S2 reg, no murmurs, rubs or gallop Lungs:CTA, no rhonchi, no wheeze Abd: soft, non tender, non distended, normal BS, Ext: No edema, no clubbing, no cyanosis Neuro: Awake, alert, oriented X 3, no focal neurological signs Vital Signs - 12hr 02/17/19 02/17/19 02/17/19 04:02 04:03 08:07 Temperature 98.8 F 99.0 F Pulse Rate 45 L 48 L Respiratory 18 12 Rate Blood Pressure 141/78 146/79 O2 Sat by Pulse 99 95 Oximetry 02/17/19 02/17/19 11:11 12:20 Temperature 98.7 F Pulse Rate 48 L 45 L Respiratory 16 Rate Blood Pressure 146/79 148/90 O2 Sat by Pulse 99 Oximetry CBC and BMP: 02/16/19 06:08 02/15/19 04:18 ABG, PT/INR, D-dimer: PT/INR, D-dimer PT 13.5 Sec. (12.2-14.9) 02/12/19 19:57 INR 1.06 (0.87-1.13) 02/12/19 19:57 Abnormal lab findings: Abnormal Labs 02/12/19 02/12/19 02/12/19 01:20 11:22 11:22 MCV 95 H MCH MCHC Lymph % (Auto) 10.0 L [place] % (Auto) 9.5 H Lymph # 0.7 L Seg Neutrophils % 79.2 H Lupus Anticoagulant Heparin Anti-Xa Level Chloride BUN Glucose 105 H POC Glucose Ur Specific [place] 1.036 H 02/12/19 02/13/19 02/13/19 20:07 06:10 06:10 MCV MCH 33 H MCHC 35 H Lymph % (Auto) 9.3 L [place] % (Auto) 8.2 H Lymph # 0.7 L Seg Neutrophils % 81.4 H Lupus Anticoagulant see below H Heparin Anti-Xa Level Chloride BUN 6 L Glucose 135 H POC Glucose Ur Specific [place] 02/13/19 02/13/19 02/13/19 06:10 13:20 22:46 MCV MCH MCHC Lymph % (Auto) [place] % (Auto) Lymph # Seg Neutrophils % Lupus Anticoagulant Heparin Anti-Xa Level < 0.10 L < 0.10 L 0.26 L Chloride BUN Glucose POC Glucose Ur Specific [place] 02/14/19 02/14/19 02/14/19 07:26 16:28 21:25 MCV MCH MCHC Lymph % (Auto) [place] % (Auto) Lymph # Seg Neutrophils % Lupus Anticoagulant Heparin Anti-Xa Level < 0.10 L Chloride BUN Glucose POC Glucose 135 H 119 H Ur Specific [place] 02/14/19 02/15/19 02/15/19 23:13 04:18 04:18 MCV MCH MCHC 35 H Lymph % (Auto) [place] % (Auto) Lymph # Seg Neutrophils % Lupus Anticoagulant Heparin Anti-Xa Level 0.10 L Chloride 97.6 L BUN 6 L Glucose POC Glucose Ur Specific [place] 02/15/19 02/16/19 02/16/19 12:29 06:08 15:34 MCV MCH MCHC Lymph % (Auto) [place] % (Auto) Lymph # Seg Neutrophils % Lupus Anticoagulant Heparin Anti-Xa Level 0.10 L 0.21 L Chloride BUN Glucose POC Glucose 116 H Ur Specific [place] 02/17/19 02/17/19 05:40 11:40 MCV MCH MCHC Lymph % (Auto) [place] % (Auto) Lymph # Seg Neutrophils % Lupus Anticoagulant Heparin Anti-Xa Level 0.10 L Chloride BUN Glucose POC Glucose 146 H Ur Specific [place]
[2019-02-17] MEDS: DILANTIN PO SCH ×2 (20:17→21:48)
[2019-02-17] MEDS: TYLENOL PO PRN (21:17)
[2019-02-18] MEDS: HEPARIN/ 0.45% NACL-25,000 UNIT/500 ML 25,000 UNIT/500 ML BAG IV SCH ×3 (05:44→21:37)
[2019-02-18] MEDS: MORPHINE IV PRN ×2 (05:44→20:04)
[2019-02-18] MEDS: SODIUM CHLORIDE FLUSH SYRINGE 10 ML IV PRN ×2 (05:51→20:09)
[2019-02-18] MEDS: HumaLOG SUB-Q SCH ×4 (08:00→23:02)
[2019-02-18 08:04] LABS: Hematocrit 39.9 % (35.5-45.6); Hemoglobin 13.7 gm/dl (11.8-15.2); Mean Corpuscular HGB Conc 34 % (32-34); Mean Corpuscular Volume 94 fl (84-94); Platelet Count 275 K/mm3 (140-440); Red Blood Count 4.26 M/mm3 (3.65-5.03); Red Cell Distribution Width 13.8 % (13.2-15.2)
[2019-02-18 08:16] LABS: BUN/Creatinine Ratio 8; Blood Urea Nitrogen 7 mg/dL (9-20); Calcium 9.2 mg/dL (8.4-10.2); Hemolysis Index 4
--- NOTE | 2019-02-18 10:01 | Progress Note ---
Assessment and Plan Cultures: 02/14/19 Bronch RUL: 10-100k of respiratory tyson 02/14/18 AFB X 2: negative 02/14/19 Fungal smear: few fungal yeast present A/P: 58 yo M PMHx PE, DM2, HTN, seizure disorder, tobacco abuse admitted with bilateral PE, found to have oropharyngeal Candidiasis 1. Oropharyngeal candidiasis - rapid HIV test NEGATIVE. Can treat with fluconazole PO 200gm daily for 7-10 days. Minimal other risk factor for Candidiasis. 2. Incidental RUL cavitary lesion- unclear etiology, patient is asymptomatic, no risk factor for TB. Pretest prob for pulmonary active TB is low. CTA shows no hilar or mediastinal adenopathycavitary lesion in the right upper lobe measuring 2.5 cm. Bilateral pulmonary emboli of moderate severity with probable associated pulmonary infarctions and pleural effusions. AFB x 2 negative. Fungal negative. 3. Bilateral pulmonary emboli - recurrent thrombotic events over the last two years. ?Cancer yielding hypercoaguable state? 4. DM2 5. HTN Recs: - continue fluconazole 200mg daily ( Stop date: 02/23/19 ) - follow-up HIV-VL - follow-up Quantiferon gold - airborne precautions while ruling out TB - follow-up AFB x1. If negative ok to discontinue isolation. [facility] M: [phone] O:[phone] Subjective Date of service: 02/18/19 Principal diagnosis: lung cavity Interval history: Patient seen and examined. Reports improved respiratory symptoms. + dry cough. No fevers. Objective - Exam Narrative Exam: General appearance: Awake. Alert. No acute distress. Eyes: anicteric sclerae, moist conjunctivae; no lid-lag; PERRLA HENT: Atraumatic; oropharynx clear with moist mucous membranes and no mucosal ulcerations/no oral thrush; normal hard and soft palate. Lungs: CTA, with normal respiratory effort and no intercostal retractions CV: RRR no murmur Abdomen: Soft, non-tender; no masses or hepatosplenomegaly Extremities: no edema, no cyanosis Skin: No rash. Psych: Appropriate affect, alert and oriented to person, place and time. Neuro: alert and oriented x 3. Moving all extermities - Constitutional Vitals: Vital Signs Temp Pulse Resp BP Pulse Ox 98.3 F 47 L 20 159/79 96 02/18/19 09:27 02/18/19 09:27 02/18/19 09:27 02/18/19 09:27 02/18/19 09:27 Temperature -Last 24 Hours Temperature 98.3 F Temperature 98.4 F Temperature 98.2 F Temperature 99.0 F Temperature 98.9 F Temperature 98.7 F - Labs CBC & Chem 7: 02/18/19 Unknown 02/18/19 Unknown Labs: Abnormal lab results 02/17/19 02/17/19 02/18/19 Range/Units 11:40 20:35 Unknown WBC 4.0 L (4.5-11.0) K/mm3 BUN (9-20) mg/dL POC Glucose 146 H 142 H (70-105) 02/18/19 Range/Units Unknown WBC (4.5-11.0) K/mm3 BUN 7 L (9-20) mg/dL POC Glucose (70-105)
--- NOTE | 2019-02-18 11:15 | Consultation ---
History of Present Illness Consult date: 02/18/19 Requesting physician: KYLAH VALLES Consult reason: bradycardia History of present illness: The patient is 58 year old male with a past medical history of PE, DVT, HTN, DM, seizure d/o, tobacco use, medical noncompliance. He has been seen by our practice on prior hospitalization. He presented on 02/12/2019 with complaints of chest pain, SOB and bilateral flank pain for 3 days prior to arrival. Patient felt at though he had "kidney stones". Pt states that he had PE and DVT in 2017 and was on Xarelto for a period, but discontinued this medication and had not on any form of anticoagulation. CTA revealed Bilateral pulmonary emboli of moderate severity with probable associated pulmonary infarctions and pleural effusions. A right upper lobe cavitary lesion was also incidentally found. He was started on heparin drip. Bronchoscopy was done 02/14/[address] Malhotra and specimen sent for AFB, PCP. Pt was noted to have sinus bradycardia and thus cardiology has been consulted. Tele and ECG reviewed - pt in sinus bradycardia with HR 50s, HR low of 32bpm noted since admission, no pauses noted. Pt denies any current cardiac complaints. He denies any occurrence of n/v, diaphoresis, dizziness or syncope. He is currently on heparin drip. Of note, pt was seen by our practice here at [facility] in 2017 for syncope and was found to have asymptomatic sinus bradycardia at that time, as well. He underwent stress testing which was negative. Echo showed EF 55-60%, no significant abnormalities. Echo done 02/13/2019 showed EF 50-55%, trace MR, trace TR. Past History Past Medical History: diabetes, DVT, hypertension, pulmonary embolism (Xarelto in past not currently on anticoagulation), seizures Past Surgical History: Other (back surgery) Social history: smoking (current everyday smoker) Family history: diabetes Medications and Allergies Allergies Allergy/AdvReac Type Severity Reaction Status Date / Time hydrocodone bitartrate AdvReac Nausea Verified 01/19/17 10:51 [From Lortab] propoxyphene napsylate AdvReac Nausea Verified 01/19/17 10:51 [From Darvocet-N 100] Home Medications Medication Instructions Recorded Confirmed Last Taken Type Ibuprofen [Motrin 600 MG tab] 600 mg PO Q8H PRN #20 tablet 01/12/17 02/12/19 02/02/19 Rx Lisinopril [Zestril TAB] 40 mg PO QDAY 30 Days tablet 01/12/17 02/12/19 02/12/19 Rx Phenytoin [Dilantin] 200 mg PO QHS 30 Days capsule 01/12/17 02/12/19 02/12/19 Rx predniSONE [Deltasone] 20 mg PO QDAY 02/12/19 02/12/19 02/12/19 History Active Meds: Active Medications Acetaminophen (Tylenol) 650 mg PO Q4H PRN PRN Reason: Pain MILD(1-3)/Fever >100.5/BLACK Last Admin: 02/17/19 21:17 Dose: 650 mg Documented by: Dextrose (D50w (25gm) Syringe) 50 ml IV PRN PRN PRN Reason: Hypoglycemia Fluconazole (Diflucan) 200 mg PO QDAY [facility] Stop: 02/23/19 23:59 Last Admin: 02/17/19 11:11 Dose: 200 mg Documented by: Heparin Sodium/Sodium Chloride (Heparin/ 0.45% Nacl-25,000 Unit/500 Ml) 25,000 unit in 500 mls @ 16 mls/hr IV TITR [facility]; Protocol Last Admin: 02/18/19 05:44 Dose: 1,450 units/hr, 29 mls/hr Documented by: Insulin Human Lispro (Humalog) 0 unit SUB-Q ACHS [facility]; Protocol Last Admin: 02/18/19 08:00 Dose: Not Given Documented by: Lisinopril (Zestril) 40 mg PO QDAY [facility] Last Admin: 02/17/19 11:11 Dose: 40 mg Documented by: Morphine Sulfate (Morphine) 2 mg IV Q4H PRN PRN Reason: Pain, Moderate (4-6) Last Admin: 02/18/19 05:44 Dose: 2 mg Documented by: Nicotine (Habitrol) 14 mg TD QDAY [facility] Last Admin: 02/17/19 11:11 Dose: 14 mg Documented by: Ondansetron HCl (Zofran) 4 mg IV Q6H PRN PRN Reason: Nausea And Vomiting Phenytoin (Dilantin) 200 mg PO QHS [facility] Last Admin: 02/17/19 21:48 Dose: Not Given Documented by: Sodium Chloride (Sodium Chloride Flush Syringe 10 Ml) 10 ml IV BID [facility] Last Admin: 02/17/19 21:49 Dose: Not Given Documented by: Sodium Chloride (Sodium Chloride Flush Syringe 10 Ml) 10 ml IV PRN PRN PRN Reason: LINE FLUSH Last Admin: 02/18/19 05:51 Dose: 10 ml Documented by: Review of Systems Constitutional: no weight loss, no weight gain, no fever, no chills, no sweats Ears, nose, mouth and throat: no ear pain, no nose pain, no sinus pressure, no sinus pain Cardiovascular: chest pain, shortness of breath, no orthopnea, no palpitations, no rapid/irregular heart beat, no edema, no syncope, no lightheadedness, no leg edema Respiratory: shortness of breath, no cough, no congestion, no wheezing, no pain on inspiration Gastrointestinal: no abdominal pain, no nausea, no vomiting, no diarrhea, no constipation, no change in bowel habits Genitourinary Male: flank pain, no dysuria, no hematuria, no discharge, no urinary frequency, no urinary hesitancy Musculoskeletal: no neck stiffness, no neck pain, no shooting arm pain, no arm numbness/tingling, no low back pain, no shooting leg pain Integumentary: no rash, no pruritis, no redness, no sores, no wounds Neurological: seizures (h/o), no head injury, no paralysis, no weakness, no parathesias, no numbness, no tingling, no syncope Psychiatric: no anxiety Endocrine: no cold intolerance, no heat intolerance Hematologic/Lymphatic: no easy bruising, no easy bleeding Allergic/Immunologic: no urticaria Physical Examination Vital Signs Temp Pulse Resp BP Pulse Ox 99.1 F 58 L 20 158/86 99 02/12/19 11:02 02/12/19 11:02 02/12/19 11:02 02/12/19 11:02 02/12/19 11:02 General appearance: no acute distress HEENT: Positive: PERRL, Normocephaly, Mucus Membranes Moist Neck: Positive: neck supple, trachea midline Cardiac: Positive: Reg Rate and Rhythm, S1/S2 Lungs: Positive: Decreased Breath Sounds Neuro: Positive: Grossly Intact Abdomen: Negative: Tender Skin: Negative: Rash, Wound Musculoskeletal: No Pain Extremities: Absent: edema Results 02/18/19 Unknown 02/18/19 Unknown CBC 02/18/19 Range/Units Unknown WBC 4.0 L (4.5-11.0) K/mm3 RBC 4.26 (3.65-5.03) M/mm3 Hgb 13.7 (11.8-15.2) gm/dl Hct 39.9 (35.5-45.6) % Plt Count 275 (140-440) K/mm3 Comprehensive Metabolic Panel 02/18/19 Range/Units Unknown Sodium 141 (137-145) mmol/L Potassium 3.8 (3.6-5.0) mmol/L Chloride 102.2 (98-107) mmol/L Carbon Dioxide 28 (22-30) mmol/L BUN 7 L (9-20) mg/dL Creatinine 0.9 (0.8-1.5) mg/dL Glucose 84 (75-100) mg/dL Calcium 9.2 (8.4-10.2) mg/dL - Imaging and Cardiology Echo: report reviewed (02/13/2019 showed EF 50-55%, trace MR, trace TR. ) EKG: report reviewed, image reviewed EKG interpretations - Telemetry EKG Rhythm: Sinus Bradycardia - EKG Sinus rhythms and dysrhythmias: sinus bradycardia Assessment and Plan Pt with bilateral PE, suspected pulmonary infarction and cavitary lung lesion. Cardiology has been consulted for sinus bradycardia. Tele and ECG reviewed - pt in sinus bradycardia with HR 50s, HR low of 32bpm noted since admission, no pauses noted. Thyroid profile WNL. Pt denies any current cardiac complaints. He denies any occurrence of n/v, diaphoresis, dizziness or syncope. He is currently on heparin drip. Of note, pt was seen by our practice here at [facility] in 2017 for syncope and was found to have asymptomatic sinus bradycardia at that time, as well. He underwent stress testing which was negative. Echo showed EF 55-60%, no significant abnormalities. Echo done 02/13/2019 showed EF 50-55%, trace MR, trace TR. Currently stable cardiac status. Cont to monitor on telemetry and cont to avoid AV scott blocking agents. Systemic AC per primary/pulmonary. The patient has been seen in conjunction with Dr. Baum who agrees with the assessment and plan of care. - Patient Problems (1) Bilateral pulmonary embolism Current Visit: Yes Status: Acute (2) Pulmonary infarction Current Visit: Yes Status: Suspected (3) Cavitary lesion of lung Current Visit: Yes Status: Acute (4) Sinus bradycardia Current Visit: Yes Status: Acute (5) History of pulmonary embolism Current Visit: Yes Status: Chronic (6) History of DVT (deep vein thrombosis) Current Visit: Yes Status: Chronic (7) HTN (hypertension) Current Visit: Yes Status: Chronic (8) Diabetes Current Visit: Yes Status: Chronic (9) Seizure disorder Current Visit: Yes Status: Chronic (10) Medical non-compliance Current Visit: Yes Status: Chronic
[2019-02-18] MEDS: ZESTRIL PO SCH (11:33)
[2019-02-18] MEDS: DIFLUCAN PO SCH (11:33)
[2019-02-18] MEDS: HABITROL TD SCH (11:35)
--- NOTE | 2019-02-18 11:52 | Progress Note ---
Assessment and Plan Assessment and plan: Pulmonary Embolism -CTA revealed:Bilateral pulmonary emboli of moderate severity with probable associated pulmonary infarctions and pleural effusions. Incidental right upper lobe cavitary lesion -Hx of PE 2 yrs ago Jan 2017, previously on Xarelto, not currently on anticoagulation, on admission -Started Heparin drip -Protein C , Protein S and Lupus Anticoagulation panel pending -Vascular consulted -Pulmonary following Right upper lobe cavitary lesion Bronchoscopy done results pending Placed on airborne isolation until TB ruled out AFB X 3 ordered Oropharyngeal candidiasis Continue on Diflucan ID following Hypertension -Continue to monitor BP -Resume home antihypertensive meds to optimize BP Diabetes mellitus type 2 -POC BG monitoring -SSI coverage -HbgA1C pending Hx Seizure disorder -Continue Dilantin Tobacco abuse -Current every day smoker -Counseled for cessation -Nicotine patch when necessary History Interval history: Patient is 58 year old who is an ongoing smoker with history of pulmonary embolism, hypertension, diabetes, seizure disorder presents to [facility] ED with complaints of bilateral flank pain. Pt states that he's had progressively worsening bilateral flank pain for 2 days. Patient stated that he feels like he is having "kidney stones". Pt states that he had PE in 2017 and was on Xarelto for a period, but it was discontinued and currently he is not on any form of anticoagulation. CTA revealed Bilateral pulmonary emboli of moderate severity with probable associated pulmonary infarctions and pleural effusions. Incidental right upper lobe cavitary lesion. He was started on heparin drip and admitted. Vascular surgeon, Pulmonology and ID physician consulted and evaluated him. Bronchoscopy was done 02/14/[address] Malhotra and specimen sent for AFB, PCP. Hospitalist Physical - Constitutional Vitals: Temp Pulse Resp BP Pulse Ox 98.3 F 48 L 20 159/79 96 02/18/19 09:27 02/18/19 11:33 02/18/19 09:27 02/18/19 09:27 02/18/19 09:27 General appearance: Present: no acute distress - EENT Eyes: Present: PERRL, EOM intact ENT: hearing intact, clear oral mucosa, dentition normal - Neck Neck: Present: supple, normal ROM - Respiratory Respiratory effort: normal Respiratory: bilateral: CTA - Cardiovascular Rhythm: regular Heart Sounds: Present: S1 & S2. Absent: gallop, rub - Extremities Extremities: no ischemia, No edema, Full ROM - Abdominal General gastrointestinal: soft, non-tender, non-distended, normal bowel sounds - Integumentary Integumentary: Present: clear, warm, dry - Neurologic Neurologic: CNII-XII intact, moves all extremities Results - Labs CBC & Chem 7: 02/18/19 Unknown 02/18/19 Unknown Labs: Laboratory Last Values WBC 4.0 K/mm3 (4.5-11.0) L 02/18/19 Unknown RBC 4.26 M/mm3 (3.65-5.03) 02/18/19 Unknown Hgb 13.7 gm/dl (11.8-15.2) 02/18/19 Unknown Hct 39.9 % (35.5-45.6) 02/18/19 Unknown MCV 94 fl (84-94) 02/18/19 Unknown MCH 32 pg (28-32) 02/18/19 Unknown MCHC 34 % (32-34) 02/18/19 Unknown RDW 13.8 % (13.2-15.2) 02/18/19 Unknown Plt Count 275 K/mm3 (140-440) 02/18/19 Unknown Lymph % (Auto) 9.3 % (13.4-35.0) L 02/13/19 06:10 [place] % (Auto) 8.2 % (0.0-7.3) H 02/13/19 06:10 Eos % (Auto) 0.9 % (0.0-4.3) 02/13/19 06:10 Baso % (Auto) 0.2 % (0.0-1.8) 02/13/19 06:10 Lymph # 0.7 K/mm3 (1.2-5.4) L 02/13/19 06:10 [place] # 0.6 K/mm3 (0.0-0.8) 02/13/19 06:10 Eos # 0.1 K/mm3 (0.0-0.4) 02/13/19 06:10 Baso # 0.0 K/mm3 (0.0-0.1) 02/13/19 06:10 Seg Neutrophils % 81.4 % (40.0-70.0) H 02/13/19 06:10 Seg Neutrophils # 5.8 K/mm3 (1.8-7.7) 02/13/19 06:10 PT 13.5 Sec. (12.2-14.9) 02/12/19 19:57 INR 1.06 (0.87-1.13) 02/12/19 19:57 APTT 33.0 Sec. (24.2-36.6) 02/12/19 19:57 see below H 02/12/19 20:07 87 % (70-140) 02/12/19 20:07 122 % normal (57-171) 02/12/19 20:07 107 % normal (70-140) 02/12/19 20:07 Heparin Anti-Xa Level 0.49 U.I./ml (0.3-0.7) 02/17/19 14:26 Sodium 141 mmol/L (137-145) 02/18/19 Unknown Potassium 3.8 mmol/L (3.6-5.0) 02/18/19 Unknown Chloride 102.2 mmol/L (98-107) 02/18/19 Unknown Carbon Dioxide 28 mmol/L (22-30) 02/18/19 Unknown 15 mmol/L 02/18/19 Unknown BUN 7 mg/dL (9-20) L 02/18/19 Unknown 0.9 mg/dL (0.8-1.5) 02/18/19 Unknown Estimated GFR > 60 ml/min 02/18/19 Unknown 8 % 02/18/19 Unknown Glucose 84 mg/dL (75-100) 02/18/19 Unknown POC Glucose 88 (70-105) 02/18/19 07:44 4.5 % (4-6) 02/12/19 20:07 Calcium 9.2 mg/dL (8.4-10.2) 02/18/19 Unknown < 0.010 ng/mL (0.00-0.029) 02/12/19 17:30 TSH 4.040 mlU/mL (0.270-4.200) 02/16/19 07:55 Free T4 1.08 ng/dL (0.76-1.46) 02/16/19 07:55 Yellow (Yellow) 02/12/19 01:20 Clear (Clear) 02/12/19 01:20 5.0 (5.0-7.0) 02/12/19 01:20 Ur Specific [place] 1.036 (1.003-1.030) H 02/12/19 01:20 <15 mg/dl mg/dL (Negative) 02/12/19 01:20 Neg mg/dL (Negative) 02/12/19 01:20 Tr mg/dL (Negative) 02/12/19 01:20 Neg (Negative) 02/12/19 01:20 Neg (Negative) 02/12/19 01:20 Neg (Negative) 02/12/19 01:20 < 2.0 mg/dL (<2.0) 02/12/19 01:20 Ur Leukocyte Esterase Neg (Negative) 02/12/19 01:20 < 1.0 /HPF (0.0-6.0) 02/12/19 01:20 2.0 /HPF (0.0-6.0) 02/12/19 01:20 HIV 1&2 Antibody Rapid Non react (Non React) 02/14/19 15:00 Non react (Non React) 02/14/19 15:00 02/14/19 Unknown 02/14/19 Unknown Fungal Id Prelim 02/14/19 Unknown Fungal Id Prelim 02/14/19 Unknown Active Medications - Current Medications Current Medications: Generic Name Dose Route Start Last Admin Trade Name Freq PRN Reason Stop Dose Admin Acetaminophen 650 mg 02/12/19 19:52 02/17/19 21:17 Tylenol PO 650 mg Q4H PRN Administration Pain MILD(1-3)/Fever >100.5/BLACK Dextrose 50 ml 02/12/19 20:01 D50w (25gm) Syringe IV PRN PRN Hypoglycemia Fluconazole 200 mg 02/14/19 17:00 02/18/19 11:33 Diflucan PO 02/23/19 23:59 200 mg QDAY [facility] Administration Heparin Sodium/Sodium Chloride 25,000 unit in 500 mls @ 16 mls/hr 02/12/19 20:00 02/18/19 05:44 Heparin/ 0.45% Nacl-25,000 Unit/500 Ml IV 1,450 units/hr TITR [facility] 29 mls/hr Administration Protocol 800 UNITS/HR Insulin Human Lispro 0 unit 02/12/19 22:00 02/18/19 08:00 Humalog SUB-Q Not Given ACHS [facility] Protocol Lisinopril 40 mg 02/13/19 10:00 02/18/19 11:33 Zestril PO 40 mg QDAY [facility] Administration Morphine Sulfate 2 mg 02/12/19 23:02 02/18/19 05:44 Morphine IV 2 mg Q4H PRN Administration Pain, Moderate (4-6) Nicotine 14 mg 02/13/19 10:00 02/18/19 11:35 Habitrol TD 14 mg QDAY [facility] Administration Ondansetron HCl 4 mg 02/12/19 19:52 Zofran IV Q6H PRN Nausea And Vomiting Phenytoin 200 mg 02/12/19 22:00 02/17/19 21:48 Dilantin PO Not Given QHS [facility] Sodium Chloride 10 ml 02/12/19 22:00 02/17/19 21:49 Sodium Chloride Flush Syringe 10 Ml IV Not Given BID [facility] Sodium Chloride 10 ml 02/12/19 19:52 02/18/19 05:51 Sodium Chloride Flush Syringe 10 Ml IV 10 ml PRN PRN Administration LINE FLUSH
[2019-02-18] MEDS: SODIUM CHLORIDE FLUSH SYRINGE 10 ML IV SCH ×2 (18:00→21:37)
--- NOTE | 2019-02-18 18:13 | Progress Note ---
Assessment and Plan Patient alert and awake. Resting on room air. O2 saturation 96 % and no acute respiratory distress. Patient afebrile. No leukocytosis. - Patient Problems (1) Bilateral pulmonary embolism Current Visit: Yes Status: Acute Plan to address problem: Patient is on IV Heparin. (2) Cavitary lesion of lung Current Visit: Yes Status: Acute Plan to address problem: Patient is on fluconazole. (3) Diabetes Current Visit: Yes Status: Chronic Plan to address problem: Management as per primary care. (4) HTN (hypertension) Current Visit: Yes Status: Chronic Plan to address problem: Management as per primary care. Subjective Date of service: 02/18/19 Principal diagnosis: lung cavity Interval history: Patient alert and awake. Resting on room air. O2 saturation 96 % and no acute respiratory distress. Patient afebrile. No leukocytosis. Objective Vital Signs - 12hr 02/18/19 02/18/19 09:27 11:33 Temperature 98.3 F Pulse Rate 47 L 48 L Respiratory 20 Rate Blood Pressure 159/79 O2 Sat by Pulse 96 Oximetry Constitutional: no acute distress, alert Eyes: non-icteric ENT: oropharynx moist Neck: supple Effort: normal Ascultation: Bilateral: other (prolonged expiratory phase) Cardiovascular: regular rate and rhythm Gastrointestinal: normoactive bowel sounds Integumentary: normal Extremities: no cyanosis Neurologic: normal mental status, non-focal exam, pupils equal and round Psychiatric: mood appropriate, affect normal CBC and BMP: 02/18/19 Unknown 02/18/19 Unknown ABG, PT/INR, D-dimer: PT/INR, D-dimer PT 13.5 Sec. (12.2-14.9) 02/12/19 19:57 INR 1.06 (0.87-1.13) 02/12/19 19:57 Abnormal lab findings: Abnormal Labs 02/12/19 02/12/19 02/12/19 01:20 11:22 11:22 WBC MCV 95 H MCH MCHC Lymph % (Auto) 10.0 L [place] % (Auto) 9.5 H Lymph # 0.7 L Seg Neutrophils % 79.2 H Lupus Anticoagulant Heparin Anti-Xa Level Chloride BUN Glucose 105 H POC Glucose Ur Specific [place] 1.036 H 02/12/19 02/13/19 02/13/19 20:07 06:10 06:10 WBC MCV MCH 33 H MCHC 35 H Lymph % (Auto) 9.3 L [place] % (Auto) 8.2 H Lymph # 0.7 L Seg Neutrophils % 81.4 H Lupus Anticoagulant see below H Heparin Anti-Xa Level Chloride BUN 6 L Glucose 135 H POC Glucose Ur Specific [place] 02/13/19 02/13/19 02/13/19 06:10 13:20 22:46 WBC MCV MCH MCHC Lymph % (Auto) [place] % (Auto) Lymph # Seg Neutrophils % Lupus Anticoagulant Heparin Anti-Xa Level < 0.10 L < 0.10 L 0.26 L Chloride BUN Glucose POC Glucose Ur Specific [place] 02/14/19 02/14/19 02/14/19 07:26 16:28 21:25 WBC MCV MCH MCHC Lymph % (Auto) [place] % (Auto) Lymph # Seg Neutrophils % Lupus Anticoagulant Heparin Anti-Xa Level < 0.10 L Chloride BUN Glucose POC Glucose 135 H 119 H Ur Specific [place] 02/14/19 02/15/19 02/15/19 23:13 04:18 04:18 WBC MCV MCH MCHC 35 H Lymph % (Auto) [place] % (Auto) Lymph # Seg Neutrophils % Lupus Anticoagulant Heparin Anti-Xa Level 0.10 L Chloride 97.6 L BUN 6 L Glucose POC Glucose Ur Specific [place] 02/15/19 02/16/19 02/16/19 12:29 06:08 15:34 WBC MCV MCH MCHC Lymph % (Auto) [place] % (Auto) Lymph # Seg Neutrophils % Lupus Anticoagulant Heparin Anti-Xa Level 0.10 L 0.21 L Chloride BUN Glucose POC Glucose 116 H Ur Specific [place] 02/17/19 02/17/19 02/17/19 05:40 11:40 20:35 WBC MCV MCH MCHC Lymph % (Auto) [place] % (Auto) Lymph # Seg Neutrophils % Lupus Anticoagulant Heparin Anti-Xa Level 0.10 L Chloride BUN Glucose POC Glucose 146 H 142 H Ur Specific [place] 02/18/19 02/18/19 02/18/19 13:51 Unknown Unknown WBC 4.0 L MCV MCH MCHC Lymph % (Auto) [place] % (Auto) Lymph # Seg Neutrophils % Lupus Anticoagulant Heparin Anti-Xa Level 0.23 L Chloride BUN 7 L Glucose POC Glucose Ur Specific [place] Chest x-ray: report reviewed, image reviewed CT scan - chest: report reviewed, image reviewed Additional Studies: CXR 02/12/19 IMPRESSION: 1. A wedge-shaped pleural-based right basal lung opacity suspicious for either pneumonia or a pulmonary infarct. 2. No CHF. CT angiography of the chest with 2-D reconstructions done on 02/12/19 INDICATION: Lateral chest pain Thin section axial images were obtained as well as 2-D reformatted MIP images in all 3 planes COMPARISON: The old studies are not available for comparison at this time. FINDINGS: There is no hilar or mediastinal adenopathy. There are trace pleural effusions and basilar lung consolidation including the right lateral costophrenic angle. These areas may well be pulmonary infarctions as there are areas of emboli to the left lower lobe as well as to the lateral aspect of the right lower lobe. No large central or upper lobe emboli are seen. There is no aortic dissection or aneurysm. There is a cavitary lesion in the right upper lobe measuring 2.5 cm. IMPRESSION: Bilateral pulmonary emboli of moderate severity with probable associated pulmonary infarctions and pleural effusions. Incidental right upper lobe cavitary lesion.
[2019-02-18] MEDS: DILANTIN PO SCH (21:37)
[2019-02-19] MEDS: TYLENOL PO PRN ×2 (00:41→21:16)
[2019-02-19] MEDS: MORPHINE IV PRN ×2 (05:06→17:36)
[2019-02-19] MEDS: SODIUM CHLORIDE FLUSH SYRINGE 10 ML IV PRN (05:14)
[2019-02-19 05:52] LABS: Basophils % (Auto) 0.9 % (0.0-1.8); Eosinophils # (Auto) 0.2 K/mm3 (0.0-0.4); Eosinophils % (Auto) 4.1 % (0.0-4.3); Hematocrit 35.9 % (35.5-45.6); Hemoglobin 12.5 gm/dl (11.8-15.2); Lymphocytes # (Auto) 1.2 K/mm3 (1.2-5.4); Lymphocytes % (Auto) 29.9 % (13.4-35.0); Mean Corpuscular HGB Conc 35 % (32-34); Mean Corpuscular Volume 93 fl (84-94); Monocytes # (Auto) 0.4 K/mm3 (0.0-0.8); Monocytes % (Auto) 9.6 % (0.0-7.3); Platelet Count 260 K/mm3 (140-440); Red Blood Count 3.85 M/mm3 (3.65-5.03); Red Cell Distribution Width 13.8 % (13.2-15.2)
[2019-02-19 06:21] LABS: BUN/Creatinine Ratio 5; Blood Urea Nitrogen 5 mg/dL (9-20); Calcium 8.8 mg/dL (8.4-10.2); Hemolysis Index 4
[2019-02-19] MEDS: HumaLOG SUB-Q SCH ×4 (09:04→22:51)
[2019-02-19] MEDS: ZESTRIL PO SCH (10:03)
[2019-02-19] MEDS: SODIUM CHLORIDE FLUSH SYRINGE 10 ML IV SCH ×2 (10:04→21:17)
[2019-02-19] MEDS: HABITROL TD SCH (10:04)
[2019-02-19] MEDS: DIFLUCAN PO SCH (10:35)
--- NOTE | 2019-02-19 11:15 | Progress Note ---
Assessment and Plan Cultures: 02/14/19 Bronch RUL: 10-100k of respiratory tyson 02/14/18 AFB X 3 negative 02/14/19 Fungal smear: few fungal yeast present A/P: 58 yo M PMHx PE, DM2, HTN, seizure disorder, tobacco abuse admitted with bilateral PE, found to have oropharyngeal Candidiasis 1. Oropharyngeal candidiasis - rapid HIV test NEGATIVE. Can treat with fluconazole PO 200gm daily for 7-10 days. Minimal other risk factor for Candidiasis. 2. Incidental RUL cavitary lesion- unclear etiology, patient is asymptomatic, no risk factor for TB. Pretest prob for pulmonary active TB is low. CTA shows no hilar or mediastinal adenopathycavitary lesion in the right upper lobe measuring 2.5 cm. Bilateral pulmonary emboli of moderate severity with probable associated pulmonary infarctions and pleural effusions. AFB x 3 negative. Fungal negative. 3. Bilateral pulmonary emboli - recurrent thrombotic events over the last two years. ?Cancer yielding hypercoaguable state? 4. DM2 5. HTN Recs: - continue fluconazole 200mg daily ( Stop date: 02/23/19 ) - follow-up HIV-VL - follow-up Quantiferon gold - airborne isolation discontinued -- AFB x 3 negative - clinically stable, ID is signing off. Please call for questions. [facility] M: [phone] O:[phone] Subjective Date of service: 02/19/19 Principal diagnosis: lung cavity Interval history: Patient seen and examined. Reports no acute distress or generalized weakness. no fevers. Objective - Exam Narrative Exam: General appearance: Awake. Alert. No acute distress. Eyes: anicteric sclerae, moist conjunctivae; no lid-lag; PERRLA HENT: Atraumatic; oropharynx clear with moist mucous membranes and no mucosal ulcerations/no oral thrush; normal hard and soft palate. Lungs: CTA, with normal respiratory effort and no intercostal retractions CV: RRR no murmur Abdomen: Soft, non-tender; no masses or hepatosplenomegaly Extremities: no edema, no cyanosis Skin: No rash. Psych: Appropriate affect, alert and oriented to person, place and time. Neuro: alert and oriented x 3. Moving all extermities - Constitutional Vitals: Vital Signs Temp Pulse Resp BP Pulse Ox 98.4 F 46 L 16 148/81 94 02/19/19 10:02 02/19/19 10:03 02/19/19 10:02 02/19/19 10:03 02/19/19 05:12 Temperature -Last 24 Hours Temperature 98.4 F Temperature 98.3 F Temperature 98.6 F Temperature 98.4 F Temperature 98.6 F - Labs CBC & Chem 7: 02/19/19 05:02 02/19/19 05:02 Labs: Abnormal lab results 02/18/19 02/19/19 02/19/19 Range/Units 13:51 00:33 05:02 WBC 4.0 L (4.5-11.0) K/mm3 MCHC 35 H (32-34) % [place] % (Auto) 9.6 H (0.0-7.3) % Heparin Anti-Xa Level 0.23 L 0.82 H (0.3-0.7) U.I./ml BUN (9-20) mg/dL 02/19/19 Range/Units 05:02 WBC (4.5-11.0) K/mm3 MCHC (32-34) % [place] % (Auto) (0.0-7.3) % Heparin Anti-Xa Level (0.3-0.7) U.I./ml BUN 5 L (9-20) mg/dL
--- NOTE | 2019-02-19 11:17 | Progress Note ---
Assessment and Plan Currently stable cardiac status. Cont to monitor on telemetry and cont to avoid AV scott blocking agents. Systemic AC per primary/pulmonary. The patient has been seen in conjunction with Dr. Baum who agrees with the assessment and plan of care. - Patient Problems (1) Bilateral pulmonary embolism Current Visit: Yes Status: Acute (2) Pulmonary infarction Current Visit: Yes Status: Suspected (3) Cavitary lesion of lung Current Visit: Yes Status: Acute (4) Sinus bradycardia Current Visit: Yes Status: Acute (5) History of pulmonary embolism Current Visit: Yes Status: Chronic (6) History of DVT (deep vein thrombosis) Current Visit: Yes Status: Chronic (7) HTN (hypertension) Current Visit: Yes Status: Chronic (8) Diabetes Current Visit: Yes Status: Chronic (9) Seizure disorder Current Visit: Yes Status: Chronic (10) Medical non-compliance Current Visit: Yes Status: Chronic Subjective Date of service: 02/19/19 Principal diagnosis: lung cavity Interval history: pt resting in bed, no current complaints. heparin gtt infusing. in SB on tele with HR low of 36bpm overnight while asleep, no pauses, HR currently 50s. Objective Last Vital Signs Temp 98.4 F 02/19/19 10:02 Pulse 46 L 02/19/19 10:03 Resp 16 02/19/19 10:02 BP 148/81 02/19/19 10:03 Pulse Ox 94 02/19/19 05:12 - Physical Examination General: No Apparent Distress HEENT: Positive: PERRL, Normocephaly, Mucus Membranes Moist Neck: Positive: neck supple, trachea midline Cardiac: Positive: Regular Rhythm, S1/S2 Lungs: Positive: Decreased Breath Sounds Neuro: Positive: Grossly Intact Abdomen: Negative: Tender Skin: Negative: Rash, Wound Musculoskeletal: No Pain Extremities: Absent: edema - Labs and Meds CBC 02/19/19 Range/Units 05:02 WBC 4.0 L (4.5-11.0) K/mm3 RBC 3.85 (3.65-5.03) M/mm3 Hgb 12.5 (11.8-15.2) gm/dl Hct 35.9 (35.5-45.6) % Plt Count 260 (140-440) K/mm3 Lymph # 1.2 (1.2-5.4) K/mm3 [place] # 0.4 (0.0-0.8) K/mm3 Eos # 0.2 (0.0-0.4) K/mm3 Baso # 0.0 (0.0-0.1) K/mm3 Comprehensive Metabolic Panel 02/19/19 Range/Units 05:02 Sodium 142 (137-145) mmol/L Potassium 3.9 (3.6-5.0) mmol/L Chloride 102.5 (98-107) mmol/L Carbon Dioxide 25 (22-30) mmol/L BUN 5 L (9-20) mg/dL Creatinine 1.0 (0.8-1.5) mg/dL Glucose 80 (75-100) mg/dL Calcium 8.8 (8.4-10.2) mg/dL - Imaging and Cardiology EKG: report reviewed, image reviewed Echo: report reviewed (02/13/2019 showed EF 50-55%, trace MR, trace TR. ) - EKG Sinus rhythms and dysrhythmias: sinus bradycardia
--- NOTE | 2019-02-19 14:09 | Progress Note ---
Assessment and Plan Assessment and plan: Pulmonary Embolism -CTA revealed:Bilateral pulmonary emboli of moderate severity with probable associated pulmonary infarctions and pleural effusions. Incidental right upper lobe cavitary lesion -Hx of PE 2 yrs ago Jan 2017, previously on Xarelto, not currently on anticoagulation, on admission -Started Heparin drip -Protein C , Protein S and Lupus Anticoagulation panel pending -Vascular consulted -Pulmonary following Right upper lobe cavitary lesion Bronchoscopy done results pending Placed on airborne isolation until TB ruled out AFB X 3 ordered Oropharyngeal candidiasis Continue on Diflucan ID following Hypertension -Continue to monitor BP -Resume home antihypertensive meds to optimize BP Diabetes mellitus type 2 -POC BG monitoring -SSI coverage -HbgA1C pending Hx Seizure disorder -Continue Dilantin Tobacco abuse -Current every day smoker -Counseled for cessation -Nicotine patch when necessary History Interval history: Patient is 58 year old who is an ongoing smoker with history of pulmonary embolism, hypertension, diabetes, seizure disorder presents to [facility] ED with complaints of bilateral flank pain. Pt states that he's had progressively worsening bilateral flank pain for 2 days. Patient stated that he feels like he is having "kidney stones". Pt states that he had PE in 2017 and was on Xarelto for a period, but it was discontinued and currently he is not on any form of anticoagulation. CTA revealed Bilateral pulmonary emboli of moderate severity with probable associated pulmonary infarctions and pleural effusions. Incidental right upper lobe cavitary lesion. He was started on heparin drip and admitted. Vascular surgeon, Pulmonology and ID physician consulted and evaluated him. Bronchoscopy was done 02/14/[address] Malohtra and specimen sent for AFB, PCP. Hospitalist Physical - Constitutional Vitals: Temp Pulse Resp BP Pulse Ox 98.4 F 46 L 16 148/81 94 02/19/19 10:02 02/19/19 10:03 02/19/19 10:02 02/19/19 10:03 02/19/19 05:12 General appearance: Present: no acute distress - EENT Eyes: Present: PERRL, EOM intact ENT: hearing intact, clear oral mucosa, dentition normal - Neck Neck: Present: supple, normal ROM - Respiratory Respiratory effort: normal Respiratory: bilateral: CTA - Cardiovascular Rhythm: regular Heart Sounds: Present: S1 & S2. Absent: gallop, rub - Extremities Extremities: no ischemia, No edema, Full ROM - Abdominal General gastrointestinal: soft, non-tender, non-distended, normal bowel sounds - Integumentary Integumentary: Present: clear, warm, dry - Neurologic Neurologic: CNII-XII intact, moves all extremities Results - Labs CBC & Chem 7: 02/19/19 05:02 02/19/19 05:02 Labs: Laboratory Last Values WBC 4.0 K/mm3 (4.5-11.0) L 02/19/19 05:02 RBC 3.85 M/mm3 (3.65-5.03) 02/19/19 05:02 Hgb 12.5 gm/dl (11.8-15.2) 02/19/19 05:02 Hct 35.9 % (35.5-45.6) 02/19/19 05:02 MCV 93 fl (84-94) 02/19/19 05:02 MCH 32 pg (28-32) 02/19/19 05:02 MCHC 35 % (32-34) H 02/19/19 05:02 RDW 13.8 % (13.2-15.2) 02/19/19 05:02 Plt Count 260 K/mm3 (140-440) 02/19/19 05:02 Lymph % (Auto) 29.9 % (13.4-35.0) 02/19/19 05:02 [place] % (Auto) 9.6 % (0.0-7.3) H 02/19/19 05:02 Eos % (Auto) 4.1 % (0.0-4.3) 02/19/19 05:02 Baso % (Auto) 0.9 % (0.0-1.8) 02/19/19 05:02 Lymph # 1.2 K/mm3 (1.2-5.4) 02/19/19 05:02 [place] # 0.4 K/mm3 (0.0-0.8) 02/19/19 05:02 Eos # 0.2 K/mm3 (0.0-0.4) 02/19/19 05:02 Baso # 0.0 K/mm3 (0.0-0.1) 02/19/19 05:02 Seg Neutrophils % 55.5 % (40.0-70.0) 02/19/19 05:02 Seg Neutrophils # 2.2 K/mm3 (1.8-7.7) 02/19/19 05:02 PT 13.5 Sec. (12.2-14.9) 02/12/19 19:57 INR 1.06 (0.87-1.13) 02/12/19 19:57 APTT 33.0 Sec. (24.2-36.6) 02/12/19 19:57 see below H 02/12/19 20:07 87 % (70-140) 02/12/19 20:07 122 % normal (57-171) 02/12/19 20:07 107 % normal (70-140) 02/12/19 20:07 Heparin Anti-Xa Level 0.47 U.I./ml (0.3-0.7) 02/19/19 08:11 Sodium 142 mmol/L (137-145) 02/19/19 05:02 Potassium 3.9 mmol/L (3.6-5.0) 02/19/19 05:02 Chloride 102.5 mmol/L (98-107) 02/19/19 05:02 Carbon Dioxide 25 mmol/L (22-30) 02/19/19 05:02 18 mmol/L 02/19/19 05:02 BUN 5 mg/dL (9-20) L 02/19/19 05:02 1.0 mg/dL (0.8-1.5) 02/19/19 05:02 Estimated GFR > 60 ml/min 02/19/19 05:02 5 % 02/19/19 05:02 Glucose 80 mg/dL (75-100) 02/19/19 05:02 POC Glucose 78 (70-105) 02/19/19 12:26 4.5 % (4-6) 02/12/19 20:07 Calcium 8.8 mg/dL (8.4-10.2) 02/19/19 05:02 < 0.010 ng/mL (0.00-0.029) 02/12/19 17:30 TSH 4.040 mlU/mL (0.270-4.200) 02/16/19 07:55 Free T4 1.08 ng/dL (0.76-1.46) 02/16/19 07:55 Yellow (Yellow) 02/12/19 01:20 Clear (Clear) 02/12/19 01:20 5.0 (5.0-7.0) 02/12/19 01:20 Ur Specific [place] 1.036 (1.003-1.030) H 02/12/19 01:20 <15 mg/dl mg/dL (Negative) 02/12/19 01:20 Neg mg/dL (Negative) 02/12/19 01:20 Tr mg/dL (Negative) 02/12/19 01:20 Neg (Negative) 02/12/19 01:20 Neg (Negative) 02/12/19 01:20 Neg (Negative) 02/12/19 01:20 < 2.0 mg/dL (<2.0) 02/12/19 01:20 Ur Leukocyte Esterase Neg (Negative) 02/12/19 01:20 < 1.0 /HPF (0.0-6.0) 02/12/19 01:20 2.0 /HPF (0.0-6.0) 02/12/19 01:20 HIV 1&2 Antibody Rapid Non react (Non React) 02/14/19 15:00 Non react (Non React) 02/14/19 15:00 02/15/19 10:28 Fungal Id Prelim 02/14/19 Unknown Fungal Id Prelim 02/14/19 Unknown Active Medications - Current Medications Current Medications: Generic Name Dose Route Start Last Admin Trade Name Freq PRN Reason Stop Dose Admin Acetaminophen 650 mg 02/12/19 19:52 02/19/19 00:41 Tylenol PO 650 mg Q4H PRN Administration Pain MILD(1-3)/Fever >100.5/BLACK Dextrose 50 ml 02/12/19 20:01 D50w (25gm) Syringe IV PRN PRN Hypoglycemia Fluconazole 200 mg 02/14/19 17:00 02/19/19 10:35 Diflucan PO 02/23/19 23:59 200 mg QDAY BAILEY Administration Heparin Sodium/Sodium Chloride 25,000 unit in 500 mls @ 16 mls/hr 02/12/19 20:00 02/19/19 10:49 Heparin/ 0.45% Nacl-25,000 Unit/500 Ml IV 1,450 units/hr TITR BAILEY 29 mls/hr Titration Protocol 800 UNITS/HR Insulin Human Lispro 0 unit 02/12/19 22:00 02/19/19 09:04 Humalog SUB-Q Not Given ACHS [facility] Protocol Lisinopril 40 mg 02/13/19 10:00 02/19/19 10:03 Zestril PO 40 mg QDAY BAILEY Administration Morphine Sulfate 2 mg 02/12/19 23:02 02/19/19 05:06 Morphine IV 2 mg Q4H PRN Administration Pain, Moderate (4-6) Nicotine 14 mg 02/13/19 10:00 02/19/19 10:04 Habitrol TD 14 mg QDAY BAILEY Administration Ondansetron HCl 4 mg 02/12/19 19:52 Zofran IV Q6H PRN Nausea And Vomiting Phenytoin 200 mg 02/12/19 22:00 02/18/19 21:37 Dilantin PO 200 mg QHS BAILEY Administration Sodium Chloride 10 ml 02/12/19 22:00 02/19/19 10:04 Sodium Chloride Flush Syringe 10 Ml IV 10 ml BID BAILEY Administration Sodium Chloride 10 ml 02/12/19 19:52 02/19/19 05:14 Sodium Chloride Flush Syringe 10 Ml IV 10 ml PRN PRN Administration LINE FLUSH Nutrition/Malnutrition Assess - Dietary Evaluation Nutrition/Malnutrition Findings: Nutrition Notes Start: 02/19/19 10:38 Freq: Status: Active Protocol: Document 02/19/19 10:38 KARL (Rec: 02/19/19 11:51 KARL [id number]) Co-Sign 02/19/19 10:38 LP Nutrition Notes Need for Assessment generated from: LOS Initial or Follow up Assessment Current Diagnosis Diabetes,Hypertension Other Pertinent Diagnosis Pulmonary embolism, seizures Current Diet Consistent carbohydrate diet Labs/Tests Reviewed Pertinent Medications Zofran Height 5 ft 9 in Weight 62.8 kg [place] Body Weight (kg) 72.72 BMI 20.4 Subjective/Other Information Pt food is getting cold and wants it heated up before being delivered in room. Burn Absent Trauma Absent Minimum of two criteria No #1 Nutrition Diagnosis Inadequate oral intake Etiology Food temperature As Evidenced by Signs and Symptoms C/O food being cold from pt Is patient on ventilator? No Is Patient Ambulatory and/or Out of Bed Yes REE-([place]-St. Jeor-ambulatory/OOB) [ [id number] [id number]] Calculation [facility]ations [facility] Additional Notes Protein needs: 50-62g/kg (0.8- 1.0g/kg) Fluid needs: 1ml/kcal Nutrition Intervention Change Diet Order: GI soft Add Supplement/Snack (indicate name/kcal Ensure Enlive vanilla or /protein ) strawberry BID Provides kCal: 700 Provides Protein (gm) 40 Goal #1 To meet at least 75% of energy and protein needs Anticipated Discharge Needs: Regular diet w/ ONS daily Follow-Up By: 02/21/19 Additional Comments F/U on oral intake and ONS
[2019-02-19 15:32] LABS: HIV-1 RNA QN PCR <1.30 Log cps/mL; HIV-1 RNA QN PCR <20 Copies/mL
[2019-02-19] MEDS: HEPARIN/ 0.45% NACL-25,000 UNIT/500 ML 25,000 UNIT/500 ML BAG IV SCH (17:27)
--- NOTE | 2019-02-19 17:47 | Progress Note ---
Assessment and Plan Patient alert and awake. Resting on room air. O2 saturation 94 % and no acute respiratory distress. Patient is on I/V Hepatin for pulmonary emboli. Patient afebrile. No leukocytosis. - Patient Problems (1) Bilateral pulmonary embolism Current Visit: Yes Status: Acute Plan to address problem: Patient is on IV Heparin. (2) Cavitary lesion of lung Current Visit: Yes Status: Acute Plan to address problem: Patient is on fluconazole. (3) Diabetes Current Visit: Yes Status: Chronic Plan to address problem: Management as per primary care. (4) HTN (hypertension) Current Visit: Yes Status: Chronic Plan to address problem: Management as per primary care. Subjective Date of service: 02/19/19 Principal diagnosis: lung cavity Interval history: Patient alert and awake. Resting on room air. O2 saturation 94 % and no acute respiratory distress. Patient is on I/V Hepatin for pulmonary emboli. Patient afebrile. No leukocytosis. Objective Vital Signs - 12hr 02/19/19 02/19/19 10:02 10:03 Temperature 98.4 F Pulse Rate 47 L 46 L Respiratory 16 Rate Blood Pressure 148/81 Blood Pressure 148/81 [Left] Constitutional: no acute distress, alert Eyes: non-icteric ENT: oropharynx moist Neck: supple Effort: normal Ascultation: Bilateral: other (prolonged expiratory phase) Cardiovascular: regular rate and rhythm Gastrointestinal: normoactive bowel sounds Integumentary: normal Extremities: no cyanosis Neurologic: normal mental status, non-focal exam, pupils equal and round Psychiatric: mood appropriate, affect normal CBC and BMP: 02/19/19 05:02 02/19/19 05:02 ABG, PT/INR, D-dimer: PT/INR, D-dimer PT 13.5 Sec. (12.2-14.9) 02/12/19 19:57 INR 1.06 (0.87-1.13) 02/12/19 19:57 Abnormal lab findings: Abnormal Labs 02/12/19 02/12/19 02/12/19 01:20 11:22 11:22 WBC MCV 95 H MCH MCHC Lymph % (Auto) 10.0 L [place] % (Auto) 9.5 H Lymph # 0.7 L Seg Neutrophils % 79.2 H Lupus Anticoagulant Heparin Anti-Xa Level Chloride BUN Glucose 105 H POC Glucose Ur Specific [place] 1.036 H 02/12/19 02/13/19 02/13/19 20:07 06:10 06:10 WBC MCV MCH 33 H MCHC 35 H Lymph % (Auto) 9.3 L [place] % (Auto) 8.2 H Lymph # 0.7 L Seg Neutrophils % 81.4 H Lupus Anticoagulant see below H Heparin Anti-Xa Level Chloride BUN 6 L Glucose 135 H POC Glucose Ur Specific [place] 02/13/19 02/13/19 02/13/19 06:10 13:20 22:46 WBC MCV MCH MCHC Lymph % (Auto) [place] % (Auto) Lymph # Seg Neutrophils % Lupus Anticoagulant Heparin Anti-Xa Level < 0.10 L < 0.10 L 0.26 L Chloride BUN Glucose POC Glucose Ur Specific [place] 02/14/19 02/14/19 02/14/19 07:26 16:28 21:25 WBC MCV MCH MCHC Lymph % (Auto) [place] % (Auto) Lymph # Seg Neutrophils % Lupus Anticoagulant Heparin Anti-Xa Level < 0.10 L Chloride BUN Glucose POC Glucose 135 H 119 H Ur Specific [place] 02/14/19 02/15/19 02/15/19 23:13 04:18 04:18 WBC MCV MCH MCHC 35 H Lymph % (Auto) [place] % (Auto) Lymph # Seg Neutrophils % Lupus Anticoagulant Heparin Anti-Xa Level 0.10 L Chloride 97.6 L BUN 6 L Glucose POC Glucose Ur Specific [place] 02/15/19 02/16/19 02/16/19 12:29 06:08 15:34 WBC MCV MCH MCHC Lymph % (Auto) [place] % (Auto) Lymph # Seg Neutrophils % Lupus Anticoagulant Heparin Anti-Xa Level 0.10 L 0.21 L Chloride BUN Glucose POC Glucose 116 H Ur Specific [place] 02/17/19 02/17/19 02/17/19 05:40 11:40 20:35 WBC MCV MCH MCHC Lymph % (Auto) [place] % (Auto) Lymph # Seg Neutrophils % Lupus Anticoagulant Heparin Anti-Xa Level 0.10 L Chloride BUN Glucose POC Glucose 146 H 142 H Ur Specific [place] 02/18/19 02/18/19 02/18/19 13:51 Unknown Unknown WBC 4.0 L MCV MCH MCHC Lymph % (Auto) [place] % (Auto) Lymph # Seg Neutrophils % Lupus Anticoagulant Heparin Anti-Xa Level 0.23 L Chloride BUN 7 L Glucose POC Glucose Ur Specific [place] 02/19/19 02/19/19 02/19/19 00:33 05:02 05:02 WBC 4.0 L MCV MCH MCHC 35 H Lymph % (Auto) [place] % (Auto) 9.6 H Lymph # Seg Neutrophils % Lupus Anticoagulant Heparin Anti-Xa Level 0.82 H Chloride BUN 5 L Glucose POC Glucose Ur Specific [place]
[2019-02-19] MEDS: DILANTIN PO SCH (21:15)
[2019-02-20] MEDS: MORPHINE IV PRN ×2 (05:13→14:16)
[2019-02-20] MEDS: SODIUM CHLORIDE FLUSH SYRINGE 10 ML IV PRN (05:17)
[2019-02-20 05:55] LABS: Hematocrit 35.8 % (35.5-45.6); Hemoglobin 12.1 gm/dl (11.8-15.2)
[2019-02-20] MEDS: HumaLOG SUB-Q SCH ×4 (08:26→22:42)
--- NOTE | 2019-02-20 08:28 | Progress Note ---
Assessment and Plan Pulmonary Embolism Right UL cystic lesion Tobacco use disorder/Nicotine dependence- on going Pulmonary infiltrates, possibly pulmonary infarcts HYN h/o Seizure disorder Type 2 DM - Continue with anticoagulation - BAL microbiology and cytology results -ve so far - Smoking cessation counselling - Nicotine withdrawal precautions - Hypercoagulable work up on going - Currently on Diflucan for oropharynygeal candidiasis per ID. - Continue all supportive care, needs age appropriate cancer screening done - continue other care per attending/ other consultants ... re-evaluate in am & prn Subjective Date of service: 02/20/19 Principal diagnosis: RUL cavitary lesion; bilateral pulmonary emboli Interval history: Patient is seen today for: RUL cavitary lesion; bilateral pulmonary emboli Seen and examined at bedside; 24hour events reviewed; nursing and respiratory care staff consulted; no adverse overnight events reported to me; resting peacefully in bed; feels better; denies hemoptysis; no chest pains; No N/V/F/C Objective Vital Signs - 12hr 02/19/19 02/19/19 02/19/19 21:00 21:16 23:20 Temperature 98.4 F Pulse Rate 53 L 53 L Respiratory 18 16 Rate Blood Pressure 141/86 O2 Sat by Pulse 98 Oximetry 02/20/19 03:38 Temperature 98.4 F Pulse Rate 45 L Respiratory 16 Rate Blood Pressure 156/83 O2 Sat by Pulse 97 Oximetry Constitutional: no acute distress, alert, other (middle aged AAM normocephalic and atraumatic) Eyes: non-icteric ENT: oropharynx moist Neck: supple, no JVD Effort: normal Ascultation: Bilateral: rhonchi, other (prolonged expiratory phase) Percussion: Bilateral: not dull Cardiovascular: regular rate and rhythm Gastrointestinal: normoactive bowel sounds, soft, non-tender, non-distended Integumentary: normal Extremities: no cyanosis, no edema, pulses normal, no ischemia or petechiae Neurologic: normal mental status, non-focal exam, pupils equal and round, motor strength normal and Psychiatric: mood appropriate, affect normal CBC and BMP: 02/20/19 Unknown 02/19/19 05:02 ABG, PT/INR, D-dimer: PT/INR, D-dimer PT 13.5 Sec. (12.2-14.9) 02/12/19 19:57 INR 1.06 (0.87-1.13) 02/12/19 19:57 Abnormal lab findings: Abnormal Labs 02/12/19 02/12/19 02/12/19 01:20 11:22 11:22 WBC MCV 95 H MCH MCHC Lymph % (Auto) 10.0 L [place] % (Auto) 9.5 H Lymph # 0.7 L Seg Neutrophils % 79.2 H Lupus Anticoagulant Heparin Anti-Xa Level Chloride BUN Glucose 105 H POC Glucose Ur Specific [place] 1.036 H 02/12/19 02/13/19 02/13/19 20:07 06:10 06:10 WBC MCV MCH 33 H MCHC 35 H Lymph % (Auto) 9.3 L [place] % (Auto) 8.2 H Lymph # 0.7 L Seg Neutrophils % 81.4 H Lupus Anticoagulant see below H Heparin Anti-Xa Level Chloride BUN 6 L Glucose 135 H POC Glucose Ur Specific [place] 02/13/19 02/13/19 02/13/19 06:10 13:20 22:46 WBC MCV MCH MCHC Lymph % (Auto) [place] % (Auto) Lymph # Seg Neutrophils % Lupus Anticoagulant Heparin Anti-Xa Level < 0.10 L < 0.10 L 0.26 L Chloride BUN Glucose POC Glucose Ur Specific [place] 02/14/19 02/14/19 02/14/19 07:26 16:28 21:25 WBC MCV MCH MCHC Lymph % (Auto) [place] % (Auto) Lymph # Seg Neutrophils % Lupus Anticoagulant Heparin Anti-Xa Level < 0.10 L Chloride BUN Glucose POC Glucose 135 H 119 H Ur Specific [place] 02/14/19 02/15/19 02/15/19 23:13 04:18 04:18 WBC MCV MCH MCHC 35 H Lymph % (Auto) [place] % (Auto) Lymph # Seg Neutrophils % Lupus Anticoagulant Heparin Anti-Xa Level 0.10 L Chlor[place] 97.6 L BUN 6 L Glucose POC Glucose Ur Specific [place] 02/15/19 02/16/19 02/16/19 12:29 06:08 15:34 WBC MCV MCH MCHC Lymph % (Auto) [place] % (Auto) Lymph # Seg Neutrophils % Lupus Anticoagulant Heparin Anti-Xa Level 0.10 L 0.21 L Chloride BUN Glucose POC Glucose 116 H Ur Specific [place] 02/17/19 02/17/19 02/17/19 05:40 11:40 20:35 WBC MCV MCH MCHC Lymph % (Auto) [place] % (Auto) Lymph # Seg Neutrophils % Lupus Anticoagulant Heparin Anti-Xa Level 0.10 L Chloride BUN Glucose POC Glucose 146 H 142 H Ur Specific [place] 02/18/19 02/18/19 02/18/19 13:51 Unknown Unknown WBC 4.0 L MCV MCH MCHC Lymph % (Auto) [place] % (Auto) Lymph # Seg Neutrophils % Lupus Anticoagulant Heparin Anti-Xa Level 0.23 L Chlor[place] BUN 7 L Glucose POC Glucose Ur Specific [place] 02/19/19 02/19/19 02/19/19 00:33 05:02 05:02 WBC 4.0 L MCV MCH MCHC 35 H Lymph % (Auto) [place] % (Auto) 9.6 H Lymph # Seg Neutrophils % Lupus Anticoagulant Heparin Anti-Xa Level 0.82 H Chloride BUN 5 L Glucose POC Glucose Ur Specific [place] 02/20/19 07:58 WBC MCV MCH MCHC Lymph % (Auto) [place] % (Auto) Lymph # Seg Neutrophils % Lupus Anticoagulant Heparin Anti-Xa Level Chloride BUN Glucose POC Glucose 68 L Ur Specific [place] Chest x-ray: image reviewed Allied health notes reviewed: nursing
[2019-02-20] MEDS: HEPARIN/ 0.45% NACL-25,000 UNIT/500 ML 25,000 UNIT/500 ML BAG IV SCH ×3 (09:55→18:41)
[2019-02-20] MEDS: ZESTRIL PO SCH (09:56)
[2019-02-20] MEDS: DIFLUCAN PO SCH (09:56)
[2019-02-20] MEDS: HABITROL TD SCH (09:56)
[2019-02-20] MEDS: SODIUM CHLORIDE FLUSH SYRINGE 10 ML IV SCH ×2 (09:57→21:35)
--- NOTE | 2019-02-20 12:24 | Progress Note ---
Assessment and Plan Currently stable cardiac status. Cont to monitor on telemetry and cont to avoid AV scott blocking agents. Systemic AC per primary/pulmonary. Nothing further to add from cardiac perspective at this time. Will follow on as needed basis. The patient has been seen in conjunction with Dr. Baum who agrees with the assessment and plan of care. - Patient Problems (1) Bilateral pulmonary embolism Current Visit: Yes Status: Acute (2) Pulmonary infarction Current Visit: Yes Status: Suspected (3) Cavitary lesion of lung Current Visit: Yes Status: Acute (4) Sinus bradycardia Current Visit: Yes Status: Acute (5) History of pulmonary embolism Current Visit: Yes Status: Chronic (6) History of DVT (deep vein thrombosis) Current Visit: Yes Status: Chronic (7) HTN (hypertension) Current Visit: Yes Status: Chronic (8) Diabetes Current Visit: Yes Status: Chronic (9) Seizure disorder Current Visit: Yes Status: Chronic (10) Medical non-compliance Current Visit: Yes Status: Chronic Subjective Date of service: 02/20/19 Principal diagnosis: RUL cavitary lesion; bilateral pulmonary emboli Interval history: pt resting in bed, no current complaints. heparin gtt infusing. telemetry was discontinued overnight. Objective Last Vital Signs Temp 98.4 F 02/20/19 03:38 Pulse 45 L 02/20/19 10:00 Resp 16 02/20/19 03:38 BP 156/83 02/20/19 03:38 Pulse Ox 97 02/20/19 03:38 - Physical Examination General: No Apparent Distress HEENT: Positive: PERRL, Normocephaly, Mucus Membranes Moist Neck: Positive: neck supple, trachea midline Cardiac: Positive: Regular Rhythm, S1/S2 Lungs: Positive: Decreased Breath Sounds Neuro: Positive: Grossly Intact Abdomen: Negative: Tender Skin: Negative: Rash, Wound Musculoskeletal: No Pain Extremities: Absent: edema - Labs and Meds CBC 02/20/19 Range/Units Unknown Hgb 12.1 (11.8-15.2) gm/dl Hct 35.8 (35.5-45.6) % Plt Count 262 (140-440) K/mm3 - Imaging and Cardiology EKG: report reviewed, image reviewed Echo: report reviewed (02/13/2019 showed EF 50-55%, trace MR, trace TR. ) - EKG Sinus rhythms and dysrhythmias: sinus bradycardia
--- NOTE | 2019-02-20 17:17 | Progress Note ---
Assessment and Plan Assessment and plan: Pulmonary Embolism -CTA revealed:Bilateral pulmonary emboli of moderate severity with probable associated pulmonary infarctions and pleural effusions. Incidental right upper lobe cavitary lesion -Hx of PE 2 yrs ago Jan 2017, previously on Xarelto, not currently on anticoagulation, on admission -Started Heparin drip -Protein C , Protein S and Lupus Anticoagulation panel pending -Vascular consulted -Pulmonary following Right upper lobe cavitary lesion BAL negative thus far Placed on airborne isolation until TB ruled out AFB X 3 ordered Oropharyngeal candidiasis Continue on Diflucan ID following Hypertension -Continue to monitor BP -Resume home antihypertensive meds to optimize BP Diabetes mellitus type 2 -POC BG monitoring -SSI coverage -HbgA1C pending Hx Seizure disorder -Continue Dilantin Tobacco abuse -Current every day smoker -Counseled for cessation -Nicotine patch when necessary History Interval history: Patient is 58 year old who is an ongoing smoker with history of pulmonary embolism, hypertension, diabetes, seizure disorder presents to [facility] ED with complaints of bilateral flank pain. Pt states that he's had progressively worse charley bilateral flank pain for 2 days. Patient stated that he feels like he is having "kidney stones". Pt states that he had PE in 2017 and was on Xarelto for a period, but it was discontinued and currently he is not on any form of anticoagulation. CTA revealed Bilateral pulmonary emboli of moderate severity with probable associated pulmonary infarctions and pleural effusions. Incidental right upper lobe cavitary lesion. He was started on heparin drip and admitted. Vascular surgeon, Pulmonology and ID physician consulted and evaluated him. Bronchoscopy was done 02/14/[address] Malhotra and specimen sent for AFB, PCP. Hospitalist Physical - Constitutional Vitals: Temp Pulse Resp BP Pulse Ox 98.4 F 45 L 16 156/83 97 02/20/19 03:38 02/20/19 10:00 02/20/19 03:38 02/20/19 03:38 02/20/19 03:38 General appearance: Present: no acute distress - EENT Eyes: Present: PERRL, EOM intact ENT: hearing intact, clear oral mucosa, dentition normal - Neck Neck: Present: supple, normal ROM - Respiratory Respiratory effort: normal Respiratory: bilateral: CTA - Cardiovascular Rhythm: regular Heart Sounds: Present: S1 & S2. Absent: gallop, rub - Extremities Extremities: no ischemia, No edema, Full ROM - Abdominal General gastrointestinal: soft, non-tender, non-distended, normal bowel sounds - Integumentary Integumentary: Present: clear, warm, dry - Neurologic Neurologic: CNII-XII intact, moves all extremities Results - Labs CBC & Chem 7: 02/20/19 Unknown 02/19/19 05:02 Labs: Laboratory Last Values WBC 4.0 K/mm3 (4.5-11.0) L 02/19/19 05:02 RBC 3.85 M/mm3 (3.65-5.03) 02/19/19 05:02 Hgb 12.1 gm/dl (11.8-15.2) 02/20/19 Unknown Hct 35.8 % (35.5-45.6) 02/20/19 Unknown MCV 93 fl (84-94) 02/19/19 05:02 MCH 32 pg (28-32) 02/19/19 05:02 MCHC 35 % (32-34) H 02/19/19 05:02 RDW 13.8 % (13.2-15.2) 02/19/19 05:02 Plt Count 262 K/mm3 (140-440) 02/20/19 Unknown Lymph % (Auto) 29.9 % (13.4-35.0) 02/19/19 05:02 [place] % (Auto) 9.6 % (0.0-7.3) H 02/19/19 05:02 Eos % (Auto) 4.1 % (0.0-4.3) 02/19/19 05:02 Baso % (Auto) 0.9 % (0.0-1.8) 02/19/19 05:02 Lymph # 1.2 K/mm3 (1.2-5.4) 02/19/19 05:02 [place] # 0.4 K/mm3 (0.0-0.8) 02/19/19 05:02 Eos # 0.2 K/mm3 (0.0-0.4) 02/19/19 05:02 Baso # 0.0 K/mm3 (0.0-0.1) 02/19/19 05:02 Seg Neutrophils % 55.5 % (40.0-70.0) 02/19/19 05:02 Seg Neutrophils # 2.2 K/mm3 (1.8-7.7) 02/19/19 05:02 PT 13.5 Sec. (12.2-14.9) 02/12/19 19:57 INR 1.06 (0.87-1.13) 02/12/19 19:57 APTT 33.0 Sec. (24.2-36.6) 02/12/19 19:57 see below H 02/12/19 20:07 87 % (70-140) 02/12/19 20:07 122 % normal (57-171) 02/12/19 20:07 107 % normal (70-140) 02/12/19 20:07 Heparin Anti-Xa Level 1.08 U.I./ml (0.3-0.7) H 02/20/19 09:28 Sodium 142 mmol/L (137-145) 02/19/19 05:02 Potassium 3.9 mmol/L (3.6-5.0) 02/19/19 05:02 Chloride 102.5 mmol/L (98-107) 02/19/19 05:02 Carbon Dioxide 25 mmol/L (22-30) 02/19/19 05:02 18 mmol/L 02/19/19 05:02 BUN 5 mg/dL (9-20) L 02/19/19 05:02 1.0 mg/dL (0.8-1.5) 02/19/19 05:02 Estimated GFR > 60 ml/min 02/19/19 05:02 5 % 02/19/19 05:02 Glucose 80 mg/dL (75-100) 02/19/19 05:02 POC Glucose 78 (70-105) 02/20/19 12:37 4.5 % (4-6) 02/12/19 20:07 Calcium 8.8 mg/dL (8.4-10.2) 02/19/19 05:02 < 0.010 ng/mL (0.00-0.029) 02/12/19 17:30 TSH 4.040 mlU/mL (0.270-4.200) 02/16/19 07:55 Free T4 1.08 ng/dL (0.76-1.46) 02/16/19 07:55 Yellow (Yellow) 02/12/19 01:20 Clear (Clear) 02/12/19 01:20 5.0 (5.0-7.0) 02/12/19 01:20 Ur Specific [place] 1.036 (1.003-1.030) H 02/12/19 01:20 <15 mg/dl mg/dL (Negative) 02/12/19 01:20 Neg mg/dL (Negative) 02/12/19 01:20 Tr mg/dL (Negative) 02/12/19 01:20 Neg (Negative) 02/12/19 01:20 Neg (Negative) 02/12/19 01:20 Neg (Negative) 02/12/19 01:20 < 2.0 mg/dL (<2.0) 02/12/19 01:20 Ur Leukocyte Esterase Neg (Negative) 02/12/19 01:20 < 1.0 /HPF (0.0-6.0) 02/12/19 01:20 2.0 /HPF (0.0-6.0) 02/12/19 01:20 HIV-1 RNA PCR copies/ml <20 Copies/mL 02/16/19 13:19 <1.30 Log cps/mL 02/16/19 13:19 HIV 1&2 Antibody Rapid Non react (Non React) 02/14/19 15:00 Non react (Non React) 02/14/19 15:00 02/15/19 10:28 Fungal Id Prelim 02/14/19 Unknown Fungal Id Prelim 02/14/19 Unknown Active Medications - Current Medications Current Medications: Generic Name Dose Route Start Last Admin Trade Name Freq PRN Reason Stop Dose Admin Acetaminophen 650 mg 02/12/19 19:52 02/19/19 21:16 Tylenol PO 650 mg Q4H PRN Administration Pain MILD(1-3)/Fever >100.5/BLACK Dextrose 50 ml 02/12/19 20:01 D50w (25gm) Syringe IV PRN PRN Hypoglycemia Fluconazole 200 mg 02/14/19 17:00 02/20/19 09:56 Diflucan PO 02/23/19 23:59 200 mg QDAY BAILEY Administration Heparin Sodium/Sodium Chloride 25,000 unit in 500 mls @ 16 mls/hr 02/12/19 20:00 02/20/19 14:13 Heparin/ 0.45% Nacl-25,000 Unit/500 Ml IV 1,300 units/hr TITR BAILEY 26 mls/hr Administration Protocol 800 UNITS/HR Insulin Human Lispro 0 unit 02/12/19 22:00 02/20/19 14:10 Humalog SUB-Q Not Given ACHS [facility] Protocol Lisinopril 40 mg 02/13/19 10:00 02/20/19 09:56 Zestril PO 40 mg QDAY BAILEY Administration Morphine Sulfate 2 mg 02/12/19 23:02 02/20/19 14:16 Morphine IV 2 mg Q4H PRN Administration Pain, Moderate (4-6) Nicotine 14 mg 02/13/19 10:00 02/20/19 09:56 Habitrol TD 14 mg QDAY BAILEY Administration Ondansetron HCl 4 mg 02/12/19 19:52 Zofran IV Q6H PRN Nausea And Vomiting Phenytoin 200 mg 02/12/19 22:00 02/19/19 21:15 Dilantin PO 200 mg QHS BAILEY Administration Sodium Chloride 10 ml 02/12/19 22:00 02/20/19 09:57 Sodium Chloride Flush Syringe 10 Ml IV 10 ml BID BAILEY Administration Sodium Chloride 10 ml 02/12/19 19:52 02/20/19 05:17 Sodium Chloride Flush Syringe 10 Ml IV 10 ml PRN PRN Administration LINE FLUSH Nutrition/Malnutrition Assess - Dietary Evaluation Nutrition/Malnutrition Findings: Nutrition Notes Start: 02/19/19 10:38 Freq: Status: Active Protocol: Document 02/19/19 10:38 KARL (Rec: 02/19/19 11:51 KARL [id number]) Co-Sign 02/19/19 10:38 LP Nutrition Notes Need for Assessment generated from: LOS Initial or Follow up Assessment Current Diagnosis Diabetes,Hypertension Other Pertinent Diagnosis Pulmonary embolism, seizures Current Diet Consistent carbohydrate diet Labs/Tests Reviewed Pertinent Medications Zofran Height 5 ft 9 in Weight 62.8 kg [place] Body Weight (kg) 72.72 BMI 20.4 Subjective/Other Information Pt food is getting cold and wants it heated up before being delivered in room. Burn Absent Trauma Absent Minimum of two criteria No #1 Nutrition Diagnosis Inadequate oral intake Etiology Food temperature As Evidenced by Signs and Symptoms C/O food being cold from pt Is patient on ventilator? No Is Patient Ambulatory and/or Out of Bed Yes REE-([place]-ambulatory/OOB) [ 1863.394 NUTR.MSJOOB] Calculation Used for Recommendations [facility] [place] Additional Notes Protein needs: 50-62g/kg (0.8- 1.0g/kg) Fluid needs: 1ml/kcal Nutrition Intervention Change Diet Order: GI soft Add Supplement/Snack (indicate name/kcal Ensure Enlive vanilla or /protein ) strawberry BID Provides kCal: 700 Provides Protein (gm) 40 Goal #1 To meet at least 75% of energy and protein needs Anticipated Discharge Needs: Regular diet w/ ONS daily Follow-Up By: 02/21/19 Additional Comments F/U on oral intake and ONS
[2019-02-20] MEDS: DILANTIN PO SCH (21:34)
[2019-02-21] MEDS: MORPHINE IV PRN ×3 (00:08→21:08)
[2019-02-21] MEDS: HumaLOG SUB-Q SCH ×4 (08:57→21:35)
[2019-02-21] MEDS: ZESTRIL PO SCH (10:02)
[2019-02-21] MEDS: SODIUM CHLORIDE FLUSH SYRINGE 10 ML IV SCH ×2 (10:02→21:08)
[2019-02-21] MEDS: HABITROL TD SCH (10:02)
[2019-02-21] MEDS: DIFLUCAN PO SCH (10:02)
--- NOTE | 2019-02-21 13:51 | Progress Note ---
Assessment and Plan Pulmonary Embolism Right UL cystic lesion Tobacco use disorder/Nicotine dependence- on going Pulmonary infiltrates, possibly pulmonary infarcts HYN h/o Seizure disorder Type 2 DM - Continue with anticoagulation - BAL microbiology and cytology results -ve so far - outpatient pulmonary clinic f/up - Smoking cessation counselling - Nicotine withdrawal precautions - Hypercoagulable work up on going - Currently on Diflucan for oropharynygeal candidiasis per ID. - Continue all supportive care, needs age appropriate cancer screening done - continue other care per attending/ other consultants ... discharge planning ongoing concurrently ... re-evaluate in am & prn Subjective Date of service: 02/21/19 Principal diagnosis: RUL cavitary lesion; bilateral pulmonary emboli Interval history: Patient is seen today for: RUL cavitary lesion; bilateral pulmonary emboli Seen and examined at bedside; 24hour events reviewed; nursing and respiratory care staff consulted; no adverse overnight events reported to me; resting peacefully in bed; denies acute chest pains or palpitations Objective Vital Signs - 12hr 02/21/19 04:06 Temperature 98.6 F Pulse Rate 43 L Respiratory 16 Rate Blood Pressure 168/84 O2 Sat by Pulse 100 Oximetry Constitutional: no acute distress, alert, other (middle aged AAM normocephalic and atraumatic) Eyes: non-icteric ENT: oropharynx moist Neck: supple, no JVD Effort: normal Ascultation: Bilateral: rhonchi, other (prolonged expiratory phase) Percussion: Bilateral: not dull Cardiovascular: regular rate and rhythm Gastrointestinal: normoactive bowel sounds, soft, non-tender, non-distended Integumentary: normal Extremities: no cyanosis, no edema, pulses normal, no ischemia or petechiae Neurologic: normal mental status, non-focal exam, pupils equal and round, motor strength normal and Psychiatric: mood appropriate, affect normal CBC and BMP: 02/20/19 Unknown 02/19/19 05:02 ABG, PT/INR, D-dimer: PT/INR, D-dimer PT 13.5 Sec. (12.2-14.9) 02/12/19 19:57 INR 1.06 (0.87-1.13) 02/12/19 19:57 Abnormal lab findings: Abnormal Labs 02/12/19 02/12/19 02/12/19 01:20 11:22 11:22 WBC MCV 95 H MCH MCHC Lymph % (Auto) 10.0 L [place] % (Auto) 9.5 H Lymph # 0.7 L Seg Neutrophils % 79.2 H Lupus Anticoagulant Heparin Anti-Xa Level Chloride BUN Glucose 105 H POC Glucose Ur Specific [place] 1.036 H 02/12/19 02/13/19 02/13/19 20:07 06:10 06:10 WBC MCV MCH 33 H MCHC 35 H Lymph % (Auto) 9.3 L [place] % (Auto) 8.2 H Lymph # 0.7 L Seg Neutrophils % 81.4 H Lupus Anticoagulant see below H Heparin Anti-Xa Level Chloride BUN 6 L Glucose 135 H POC Glucose Ur Specific [place] 02/13/19 02/13/19 02/13/19 06:10 13:20 22:46 WBC MCV MCH MCHC Lymph % (Auto) [place] % (Auto) Lymph # Seg Neutrophils % Lupus Anticoagulant Heparin Anti-Xa Level < 0.10 L < 0.10 L 0.26 L Chloride BUN Glucose POC Glucose Ur Specific [place] 02/14/19 02/14/19 02/14/19 07:26 16:28 21:25 WBC MCV MCH MCHC Lymph % (Auto) [place] % (Auto) Lymph # Seg Neutrophils % Lupus Anticoagulant Heparin Anti-Xa Level < 0.10 L Chloride BUN Glucose POC Glucose 135 H 119 H Ur Specific [place] 02/14/19 02/15/19 02/15/19 23:13 04:18 04:18 WBC MCV MCH MCHC 35 H Lymph % (Auto) [place] % (Auto) Lymph # Seg Neutrophils % Lupus Anticoagulant Heparin Anti-Xa Level 0.10 L Chloride 97.6 L BUN 6 L Glucose POC Glucose Ur Specific [place] 02/15/19 02/16/19 02/16/19 12:29 06:08 15:34 WBC MCV MCH MCHC Lymph % (Auto) [place] % (Auto) Lymph # Seg Neutrophils % Lupus Anticoagulant Heparin Anti-Xa Level 0.10 L 0.21 L Chloride BUN Glucose POC Glucose 116 H Ur Specific [place] 02/17/19 02/17/19 02/17/19 05:40 11:40 20:35 WBC MCV MCH MCHC Lymph % (Auto) [place] % (Auto) Lymph # Seg Neutrophils % Lupus Anticoagulant Heparin Anti-Xa Level 0.10 L Chloride BUN Glucose POC Glucose 146 H 142 H Ur Specific [place] 0902/18/19 02/18/19 13:51 Unknown Unknown WBC 4.0 L MCV MCH MCHC Lymph % (Auto) [place] % (Auto) Lymph # Seg Neutrophils % Lupus Anticoagulant Heparin Anti-Xa Level 0.23 L Chloride BUN 7 L Glucose POC Glucose Ur Specific [place] 02/19/19 02/19/19 02/19/19 00:33 05:02 05:02 WBC 4.0 L MCV MCH MCHC 35 H Lymph % (Auto) [place] % (Auto) 9.6 H Lymph # Seg Neutrophils % Lupus Anticoagulant Heparin Anti-Xa Level 0.82 H Chloride BUN 5 L Glucose POC Glucose Ur Specific [place] 02/20/19 02/20/19 02/20/19 07:58 09:28 21:53 WBC MCV MCH MCHC Lymph % (Auto) [place] % (Auto) Lymph # Seg Neutrophils % Lupus Anticoagulant Heparin Anti-Xa Level 1.08 H Chloride BUN Glucose POC Glucose 68 L 123 H Ur Specific [place] Allied health notes reviewed: nursing
--- NOTE | 2019-02-21 14:18 | Progress Note ---
Assessment and Plan Assessment and plan: Pulmonary Embolism -CTA revealed:Bilateral pulmonary emboli of moderate severity with probable associated pulmonary infarctions and pleural effusions. Incidental right upper lobe cavitary lesion -Hx of PE 2 yrs ago Jan 2017, previously on Xarelto, not currently on anticoagulation, on admission -Started Heparin drip -Protein C , Protein S and Lupus Anticoagulation panel pending -Vascular consulted -Pulmonary following Right upper lobe cavitary lesion BAL negative thus far Placed on airborne isolation until TB ruled out AFB X 3 ordered Oropharyngeal candidiasis Continue on Diflucan ID following Hypertension -Continue to monitor BP -Resume home antihypertensive meds to optimize BP Diabetes mellitus type 2 -POC BG monitoring -SSI coverage -HbgA1C pending Hx Seizure disorder -Continue Dilantin Tobacco abuse -Current every day smoker -Counseled for cessation -Nicotine patch when necessary History Interval history: Patient is 58 year old who is an ongoing smoker with history of pulmonary embolism, hypertension, diabetes, seizure disorder presents to [facility] ED with complaints of bilateral flank pain. Pt states that he's had progressively worse charley bilateral flank pain for 2 days. Patient stated that he feels like he is having "kidney stones". Pt states that he had PE in 2017 and was on Xarelto for a period, but it was discontinued and currently he is not on any form of anticoagulation. CTA revealed Bilateral pulmonary emboli of moderate severity with probable associated pulmonary infarctions and pleural effusions. Incidental right upper lobe cavitary lesion. He was started on heparin drip and admitted. Vascular surgeon, Pulmonology and ID physician consulted and evaluated him. Bronchoscopy was done 02/14/[address] Malhotra and specimen sent for AFB, PCP. Hospitalist Physical - Constitutional Vitals: Temp Pulse Resp BP Pulse Ox 98.6 F 43 L 16 168/84 100 02/21/19 04:06 02/21/19 04:06 02/21/19 04:06 02/21/19 04:06 02/21/19 04:06 General appearance: Present: no acute distress - EENT Eyes: Present: PERRL, EOM intact ENT: hearing intact, clear oral mucosa, dentition normal - Neck Neck: Present: supple, normal ROM - Respiratory Respiratory effort: normal Respiratory: bilateral: CTA - Cardiovascular Rhythm: regular Heart Sounds: Present: S1 & S2. Absent: gallop, rub - Extremities Extremities: no ischemia, No edema, Full ROM - Abdominal General gastrointestinal: soft, non-tender, non-distended, normal bowel sounds - Integumentary Integumentary: Present: clear, warm, dry - Neurologic Neurologic: CNII-XII intact, moves all extremities Results - Labs CBC & Chem 7: 02/20/19 Unknown 02/19/19 05:02 Labs: Laboratory Last Values WBC 4.0 K/mm3 (4.5-11.0) L 02/19/19 05:02 RBC 3.85 M/mm3 (3.65-5.03) 02/19/19 05:02 Hgb 12.1 gm/dl (11.8-15.2) 02/20/19 Unknown Hct 35.8 % (35.5-45.6) 02/20/19 Unknown MCV 93 fl (84-94) 02/19/19 05:02 MCH 32 pg (28-32) 02/19/19 05:02 MCHC 35 % (32-34) H 02/19/19 05:02 RDW 13.8 % (13.2-15.2) 02/19/19 05:02 Plt Count 262 K/mm3 (140-440) 02/20/19 Unknown Lymph % (Auto) 29.9 % (13.4-35.0) 02/19/19 05:02 [place] % (Auto) 9.6 % (0.0-7.3) H 02/19/19 05:02 Eos % (Auto) 4.1 % (0.0-4.3) 02/19/19 05:02 Baso % (Auto) 0.9 % (0.0-1.8) 02/19/19 05:02 Lymph # 1.2 K/mm3 (1.2-5.4) 02/19/19 05:02 [place]pp # 0.4 K/mm3 (0.0-0.8) 02/19/19 05:02 Eos # 0.2 K/mm3 (0.0-0.4) 02/19/19 05:02 Baso # 0.0 K/mm3 (0.0-0.1) 02/19/19 05:02 Seg Neutrophils % 55.5 % (40.0-70.0) 02/19/19 05:02 Seg Neutrophils # 2.2 K/mm3 (1.8-7.7) 02/19/19 05:02 PT 13.5 Sec. (12.2-14.9) 02/12/19 19:57 INR 1.06 (0.87-1.13) 02/12/19 19:57 APTT 33.0 Sec. (24.2-36.6) 02/12/19 19:57 see below H 02/12/19 20:07 87 % (70-140) 02/12/19 20:07 122 % normal (57-171) 02/12/19 20:07 107 % normal (70-140) 02/12/19 20:07 Heparin Anti-Xa Level 0.52 U.I./ml (0.3-0.7) 02/20/19 18:06 Sodium 142 mmol/L (137-145) 02/19/19 05:02 Potassium 3.9 mmol/L (3.6-5.0) 02/19/19 05:02 Chloride 102.5 mmol/L (98-107) 02/19/19 05:02 Carbon Dioxide 25 mmol/L (22-30) 02/19/19 05:02 18 mmol/L 02/19/19 05:02 BUN 5 mg/dL (9-20) L 02/19/19 05:02 1.0 mg/dL (0.8-1.5) 02/19/19 05:02 Estimated GFR > 60 ml/min 02/19/19 05:02 5 % 02/19/19 05:02 Glucose 80 mg/dL (75-100) 02/19/19 05:02 POC Glucose 70 (70-105) 02/21/19 12:29 4.5 % (4-6) 02/12/19 20:07 Calcium 8.8 mg/dL (8.4-10.2) 02/19/19 05:02 < 0.010 ng/mL (0.00-0.029) 02/12/19 17:30 TSH 4.040 mlU/mL (0.270-4.200) 02/16/19 07:55 Free T4 1.08 ng/dL (0.76-1.46) 02/16/19 07:55 Yellow (Yellow) 02/12/19 01:20 Clear (Clear) 02/12/19 01:20 5.0 (5.0-7.0) 02/12/19 01:20 Ur Specific [place] 1.036 (1.003-1.030) H 02/12/19 01:20 <15 mg/dl mg/dL (Negative) 02/12/19 01:20 Neg mg/dL (Negative) 02/12/19 01:20 Tr mg/dL (Negative) 02/12/19 01:20 Neg (Negative) 02/12/19 01:20 Neg (Negative) 02/12/19 01:20 Neg (Negative) 02/12/19 01:20 < 2.0 mg/dL (<2.0) 02/12/19 01:20 Ur Leukocyte Esterase Neg (Negative) 02/12/19 01:20 < 1.0 /HPF (0.0-6.0) 02/12/19 01:20 2.0 /HPF (0.0-6.0) 02/12/19 01:20 HIV-1 RNA PCR copies/ml <20 Copies/mL 02/16/19 13:19 <1.30 Log cps/mL 02/16/19 13:19 HIV 1&2 Antibody Rapid Non react (Non React) 02/14/19 15:00 Non react (Non React) 02/14/19 15:00 02/15/19 10:28 Fungal Id Prelim 02/14/19 Unknown Fungal Id Prelim 02/14/19 Unknown Flexitest 1 02/19/19 10:45 Active Medications - Current Medications Current Medications: Generic Name Dose Route Start Last Admin Trade Name Freq PRN Reason Stop Dose Admin Acetaminophen 650 mg 02/12/19 19:52 02/19/19 21:16 Tylenol PO 650 mg Q4H PRN Administration Pain MILD(1-3)/Fever >100.5/BLACK Dextrose 50 ml 02/12/19 20:01 D50w (25gm) Syringe IV PRN PRN Hypoglycemia Fluconazole 200 mg 02/14/19 17:00 02/21/19 10:02 Diflucan PO 02/23/19 23:59 200 mg QDAY BAILEY Administration Heparin Sodium/Sodium Chloride 25,000 unit in 500 mls @ 16 mls/hr 02/12/19 20:00 02/20/19 18:41 Heparin/ 0.45% Nacl-25,000 Unit/500 Ml IV 1,300 units/hr TITR BAILEY 26 mls/hr Administration Protocol 800 UNITS/HR Insulin Human Lispro 0 unit 02/12/19 22:00 02/21/19 13:09 Humalog SUB-Q Not Given ACHS [facility] Protocol Lisinopril 40 mg 02/13/19 10:00 02/21/19 10:02 Zestril PO 40 mg QDAY BAILEY Administration Morphine Sulfate 2 mg 02/12/19 23:02 02/21/19 10:43 Morphine IV 2 mg Q4H PRN Administration Pain, Moderate (4-6) Nicotine 14 mg 02/13/19 10:00 02/21/19 10:02 Habitrol TD 14 mg QDAY BAILEY Administration Ondansetron HCl 4 mg 02/12/19 19:52 Zofran IV Q6H PRN Nausea And Vomiting Phenytoin 200 mg 02/12/19 22:00 02/20/19 21:34 Dilantin PO 200 mg QHS BAILEY Administration Sodium Chloride 10 ml 02/12/19 22:00 02/21/19 10:02 Sodium Chloride Flush Syringe 10 Ml IV 10 ml BID BAILEY Administration Sodium Chloride 10 ml 02/12/19 19:52 02/20/19 05:17 Sodium Chloride Flush Syringe 10 Ml IV 10 ml PRN PRN Administration LINE FLUSH Nutrition/Malnutrition Assess - Dietary Evaluation Nutrition/Malnutrition Findings: Nutrition Notes Start: 02/19/19 10:38 Freq: Status: Active Protocol: Document 02/21/19 13:53 RS (Rec: 02/21/19 14:05 RS [id number]) Co-Sign 02/21/19 13:53 LP Nutrition Notes Need for Assessment generated from: LOS Initial or Follow up Reassessment Current Diagnosis Diabetes,Hypertension Other Pertinent Diagnosis Pulmonary embolism, seizures Current Diet Consistent carbohydrate diet Labs/Tests Reviewed Pertinent Medications Reviewed Height 5 ft 9 in Weight 68.6 kg [place] Body Weight (kg) 72.72 BMI 22.3 Weight change and time frame wt gain noted. 8.5% wt gain in 2 days. Subjective/Other Information Pt consulted for LOS. Pt did not eat breakfast and reports no appetite. Pt claimed ONS not delievered for several days and wants Ensure Vanilla/ [place] BID. Burn Absent Trauma Absent #1 Nutrition Diagnosis Inadequate oral intake Etiology poor appetite, As Evidenced by Signs and Symptoms pt self report poor appetite, ONS not delivered to pt Diagnosis Progress(for reassessment Continues documentation) Is patient on ventilator? No Is Patient Ambulatory and/or Out of Bed Yes REE-([facility]-ambulatory/OOB) [ 1938.794 NUTR.MSJOOB] Calculation Used for Recommendations [facility] Additional Notes Protein needs: 50-62g/kg (0.8- 1.0g/kg) Fluid needs: 1ml/kcal Nutrition Intervention Change Diet Order: Continue consistent carb diet Add Supplement/Snack (indicate name/kcal Ensure Enlive vanilla or /protein ) strawberry BID Provides kCal: 700 Provides Protein (gm) 40 Goal #1 To meet at least 75% of energy and protein needs Anticipated Discharge Needs: Regular diet w/ ONS daily Follow-Up By: 02/24/19 Additional Comments F/U to assess PO intake and ONS
--- NOTE | 2019-02-21 14:23 | Discharge Summary ---
Providers - Providers Date of Admission: 02/12/19 18:35 Date of discharge: 02/22/19 Attending physician: MYKE THORNTON 02/12/19 19:51 Consult to Physician [CONS] Routine Comment: Consulting Provider: SYLVIE PARRY Physician Instructions: Reason For Exam: PE with hx of PE 02/13/19 07:32 Consult to Physician [CONS] Routine Comment: Consulting Provider: MICHELE MCGUIRE Physician Instructions: Reason For Exam: Bilateral PE, cavitary lesion upper lobe 02/14/19 14:16 Consult to Physician [CONS] Routine Comment: Consulting Provider: ARISTIDES CLEMENT Physician Instructions: Reason For Exam: Pulm infiltrates, bronch sugg fungal infection Primary care physician: GIFT MANAGER Hospitalization Reason for admission: PE Condition: Critical Hospital course: Patient is 58 year old who is an ongoing smoker with history of pulmonary embolism, hypertension, diabetes, seizure disorder presents to [facility] ED with complaints of bilateral flank pain. 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 Patient stated that he flt like he was having "kidney stones". 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 CTA revealed Bilateral pulmonary emboli of moderate se verity with probable associated pulmonary infarctions and pleural effusions. Incidental right upper lobe cavitary lesion was also found. He was started on heparin drip and admitted. Vascular surgeon, Pulmonology and ID physician consulted and evaluated him. Bronchoscopy was done 02/14/[address] Malhotra and specimen sent for AFB and other studies. BAL studies were negative and remainder of studies can be followed up as an outpatient. AFB was found negative x 3 and isolation was d/cd. ID recommended treatment for oropharyngeal candidiasis for 14 days. Heparin will be changed to eliquis and further f/u with ID and Pulm as an outpatient. D/C time 42 minutes Disposition: DC-01 TO HOME OR SELFCARE Time spent for discharge: 42 - Discharge Diagnoses (1) Bilateral flank pain Status: Acute (2) Bilateral pulmonary embolism Status: Acute (3) Cavitary lesion of lung Status: Acute (4) Diabetes Status: Chronic (5) HTN (hypertension) Status: Chronic (6) History of DVT (deep vein thrombosis) Status: Chronic Core Measure Documentation - Palliative Care Palliative Care/ Comfort Measures: Not Applicable - Core Measures Any of the following diagnoses?: none Exam - Constitutional Vitals: Temp Pulse Resp BP Pulse Ox 98.6 F 43 L 16 168/84 100 02/21/19 04:06 02/21/19 04:06 02/21/19 04:06 02/21/19 04:06 02/21/19 04:06 General appearance: Present: no acute distress, well-nourished - EENT Eyes: Present: PERRL ENT: hearing intact, clear oral mucosa - Neck Neck: Present: supple, normal ROM - Respiratory Respiratory effort: normal Respiratory: bilateral: CTA - Cardiovascular Heart Sounds: Present: S1 & S2. Absent: rub, click - Extremities Extremities: pulses symmetrical, No edema Peripheral Pulses: within normal limits - Abdominal General gastrointestinal: Present: soft, non-tender, non-distended, normal bowel sounds Male genitourinary: Present: normal - Integumentary Integumentary: Present: clear, warm, dry - Musculoskeletal Musculoskeletal: gait normal, strength equal bilaterally - Psychiatric Psychiatric: appropriate mood/affect, intact judgment & insight - Neurologic Neurologic: CNII-XII intact, moves all extremities Plan Activity: advance as tolerated Weight Bearing Status: Weight Bear as Tolerated Follow up with: PCP,FOLLOW UP, [Referring] - 3-5 Days
[2019-02-21] MEDS: ELIQUIS PO SCH (21:07)
[2019-02-21] MEDS: DILANTIN PO SCH (21:08)
[2019-02-22] MEDS: ELIQUIS PO SCH ×2 (09:43→22:04)
[2019-02-22] MEDS: ZESTRIL PO SCH (09:43)
[2019-02-22] MEDS: DIFLUCAN PO SCH (09:43)
[2019-02-22] MEDS: MORPHINE IV PRN ×2 (09:44→22:05)
[2019-02-22] MEDS: HABITROL TD SCH (09:44)
[2019-02-22] MEDS: HumaLOG SUB-Q SCH ×4 (10:00→22:05)
[2019-02-22] MEDS: SODIUM CHLORIDE FLUSH SYRINGE 10 ML IV SCH ×2 (10:01→22:05)
--- NOTE | 2019-02-22 14:21 | Progress Note ---
Assessment and Plan Pulmonary Embolism Right UL cystic lesion Tobacco use disorder/Nicotine dependence- on going Pulmonary infiltrates, possibly pulmonary infarcts HYN h/o Seizure disorder Type 2 DM - hematology evaluation is appropriate - follow hypercoagulability panel - Continue with anticoagulation - BAL microbiology and cytology results -ve so far - outpatient pulmonary clinic f/up - Smoking cessation counselling - Nicotine withdrawal precautions - Currently on Diflucan for oropharynygeal candidiasis per ID. - Continue all supportive care, needs age appropriate cancer screening done - continue other care per attending/ other consultants ... discharge planning ongoing concurrently ... re-evaluate in am & prn Subjective Date of service: 02/22/19 Principal diagnosis: RUL cavitary lesion; bilateral pulmonary emboli Interval history: Patient is seen today for: RUL cavitary lesion; bilateral pulmonary emboli Seen and examined at bedside; 24hour events reviewed; nursing and respiratory care staff consulted; no adverse overnight events reported to me; resting peacefully in bed; denies acute chest pains or palpitations; no gross bleeding Objective Vital Signs - 12hr 02/22/19 02/22/19 02/22/19 03:30 08:02 10:00 Temperature 98.6 F 98.5 F Pulse Rate 45 L 46 L 45 L Respiratory 16 20 Rate Blood Pressure 179/90 177/85 O2 Sat by Pulse 96 97 Oximetry Constitutional: no acute distress, alert, other (middle aged AAM normocephalic and atraumatic) Eyes: non-icteric ENT: oropharynx moist Neck: supple, no JVD Effort: normal Ascultation: Bilateral: rhonchi, other (prolonged expiratory phase) Percussion: Bilateral: not dull Cardiovascular: regular rate and rhythm Gastrointestinal: normoactive bowel sounds, soft, non-tender, non-distended Integumentary: normal Extremities: no cyanosis, no edema, pulses normal, no ischemia or petechiae Neurologic: normal mental status, non-focal exam, pupils equal and round, motor strength normal and Psychiatric: mood appropriate, affect normal CBC and BMP: 02/20/19 Unknown 02/19/19 05:02 ABG, PT/INR, D-dimer: PT/INR, D-dimer PT 13.5 Sec. (12.2-14.9) 02/12/19 19:57 INR 1.06 (0.87-1.13) 02/12/19 19:57 Abnormal lab findings: Abnormal Labs 02/12/19 02/12/19 02/12/19 01:20 11:22 11:22 WBC MCV 95 H MCH MCHC Lymph % (Auto) 10.0 L [place] % (Auto) 9.5 H Lymph # 0.7 L Seg Neutrophils % 79.2 H Lupus Anticoagulant Heparin Anti-Xa Level Chloride BUN Glucose 105 H POC Glucose Ur Specific [place] 1.036 H 02/12/19 02/13/19 02/13/19 20:07 06:10 06:10 WBC MCV MCH 33 H MCHC 35 H Lymph % (Auto) 9.3 L [place] % (Auto) 8.2 H Lymph # 0.7 L Seg Neutrophils % 81.4 H Lupus Anticoagulant see below H Heparin Anti-Xa Level Chloride BUN 6 L Glucose 135 H POC Glucose Ur Specific [place] 02/13/19 02/13/19 02/13/19 06:10 13:20 22:46 WBC MCV MCH MCHC Lymph % (Auto) [place] % (Auto) Lymph # Seg Neutrophils % Lupus Anticoagulant Heparin Anti-Xa Level < 0.10 L < 0.10 L 0.26 L Chloride BUN Glucose POC Glucose Ur Specific [place] 02/14/19 02/14/19 02/14/19 07:26 16:28 21:25 WBC MCV MCH MCHC Lymph % (Auto) [place] % (Auto) Lymph # Seg Neutrophils % Lupus Anticoagulant Heparin Anti-Xa Level < 0.10 L Chloride BUN Glucose POC Glucose 135 H 119 H Ur Specific [place] 02/14/19 02/15/19 02/15/19 23:13 04:18 04:18 WBC MCV MCH MCHC 35 H Lymph % (Auto) [place] % (Auto) Lymph # Seg Neutrophils % Lupus Anticoagulant Heparin Anti-Xa Level 0.10 L Chlor[place] 97.6 L BUN 6 L Glucose POC Glucose Ur Specific [place] 02/15/19 02/16/19 02/16/19 12:29 06:08 15:34 WBC MCV MCH MCHC Lymph % (Auto) [place] % (Auto) Lymph # Seg Neutrophils % Lupus Anticoagulant Heparin Anti-Xa Level 0.10 L 0.21 L Chloride BUN Glucose POC Glucose 116 H Ur Specific [place] 02/17/19 02/17/19 02/17/19 05:40 11:40 20:35 WBC MCV MCH MCHC Lymph % (Auto) [place] % (Auto) Lymph # Seg Neutrophils % Lupus Anticoagulant Heparin Anti-Xa Level 0.10 L Chloride BUN Glucose POC Glucose 146 H 142 H Ur Specific [place] 02/18/19 02/18/19 02/18/19 13:51 Unknown Unknown WBC 4.0 L MCV MCH MCHC Lymph % (Auto) [place] % (Auto) Lymph # Seg Neutrophils % Lupus Anticoagulant Heparin Anti-Xa Level 0.23 L [place] BUN 7 L Glucose POC Glucose Ur Specific [place] 02/19/19 02/19/19 02/19/19 00:33 05:02 05:02 WBC 4.0 L MCV MCH MCHC 35 H Lymph % (Auto) [place] % (Auto) 9.6 H Lymph # Seg Neutrophils % Lupus Anticoagulant Heparin Anti-Xa Level 0.82 H Chlor[place] BUN 5 L Glucose POC Glucose Ur Specific [place] 02/20/19 02/20/19 02/20/19 07:58 09:28 21:53 WBC MCV MCH MCHC Lymph % (Auto) [place] % (Auto) Lymph # Seg Neutrophils % Lupus Anticoagulant Heparin Anti-Xa Level 1.08 H Chloride BUN Glucose POC Glucose 68 L 123 H Ur Specific [place] 02/21/19 02/21/19 02/21/19 16:15 17:58 20:59 WBC MCV MCH MCHC Lymph % (Auto) [place] % (Auto) Lymph # Seg Neutrophils % Lupus Anticoagulant Heparin Anti-Xa Level < 0.10 L Chloride BUN Glucose POC Glucose 119 H 128 H Ur Specific [place] 02/22/19 11:47 WBC MCV MCH MCHC Lymph % (Auto) [place] % (Auto) Lymph # Seg Neutrophils % Lupus Anticoagulant Heparin Anti-Xa Level Chloride BUN Glucose POC Glucose 107 H Ur Specific [place] Allied health notes reviewed: nursing
[2019-02-22] MEDS: DILANTIN PO SCH (22:04)
[2019-02-23 08:10] VITALS: BP 164/86
--- NOTE | 2019-02-23 08:20 | Progress Note ---
Assessment and Plan Assessment and plan: Pulmonary Embolism -CTA revealed:Bilateral pulmonary emboli of moderate severity with probable associated pulmonary infarctions and pleural effusions. Incidental right upper lobe cavitary lesion -Hx of PE 2 yrs ago Jan 2017, previously on Xarelto, not currently on anticoagulation, on admission -Started Heparin drip -Protein C , Protein S and Lupus Anticoagulation panel pending -Vascular consulted -Pulmonary following Right upper lobe cavitary lesion BAL negative thus far Placed on airborne isolation until TB ruled out AFB X 3 ordered Oropharyngeal candidiasis Continue on Diflucan ID following Hypertension -Continue to monitor BP -Resume home antihypertensive meds to optimize BP Diabetes mellitus type 2 -POC BG monitoring -SSI coverage -HbgA1C pending Hx Seizure disorder -Continue Dilantin Tobacco abuse -Current every day smoker -Counseled for cessation -Nicotine patch when necessary - Patient Problems (1) Bilateral flank pain Current Visit: Yes Status: Acute (2) Bilateral pulmonary embolism Current Visit: Yes Status: Acute (3) Cavitary lesion of lung Current Visit: Yes Status: Acute (4) Diabetes Current Visit: Yes Status: Chronic (5) HTN (hypertension) Current Visit: Yes Status: Chronic (6) History of DVT (deep vein thrombosis) Current Visit: Yes Status: Chronic History Interval history: Patient is 58 year old who is an ongoing smoker with history of pulmonary embolism, hypertension, diabetes, seizure disorder presents to [facility] ED with complaints of bilateral flank pain. Pt states that he's had progressively worsening bilateral flank pain for 2 days. Patient stated that he feels like he is having "kidney stones". Pt states that he had PE in 2017 and was on Xarelto for a period, but it was discontinued and currently he is not on any form of anticoagulation. CTA revealed Bilateral pulmonary emboli of moderate severity with probable associated pulmonary infarctions and pleural effusions. Incidental right upper lobe cavitary lesion. He was started on heparin drip and admitted. Vascular surgeon, Pulmonology and ID physician consulted and evaluated him. Bronchoscopy was done 02/14/[address] Malhotra and specimen sent for AFB, PCP. Hospitalist Physical - Constitutional Vitals: Temp Pulse Resp BP Pulse Ox 98.5 F 61 16 164/86 98 02/23/19 08:06 02/23/19 08:06 02/23/19 08:06 02/23/19 08:06 02/23/19 08:06 General appearance: Present: no acute distress, well-nourished - EENT Eyes: Present: PERRL, EOM intact ENT: hearing intact, clear oral mucosa, dentition normal - Neck Neck: Present: supple, normal ROM - Respiratory Respiratory effort: normal Respiratory: bilateral: CTA - Cardiovascular Rhythm: regular Heart Sounds: Present: S1 & S2. Absent: gallop, rub - Extremities Extremities: no ischemia, No edema, Full ROM - Abdominal General gastrointestinal: soft, non-tender, non-distended, normal bowel sounds - Integumentary Integumentary: Present: clear, warm, dry - Neurologic Neurologic: CNII-XII intact, moves all extremities Results - Labs CBC & Chem 7: 02/20/19 Unknown 02/19/19 05:02 Labs: Laboratory Last Values WBC 4.0 K/mm3 (4.5-11.0) L 02/19/19 05:02 RBC 3.85 M/mm3 (3.65-5.03) 02/19/19 05:02 Hgb 12.1 gm/dl (11.8-15.2) 02/20/19 Unknown Hct 35.8 % (35.5-45.6) 02/20/19 Unknown MCV 93 fl (84-94) 02/19/19 05:02 MCH 32 pg (28-32) 02/19/19 05:02 MCHC 35 % (32-34) H 02/19/19 05:02 RDW 13.8 % (13.2-15.2) 02/19/19 05:02 Plt Count 262 K/mm3 (140-440) 02/20/19 Unknown Lymph % (Auto) 29.9 % (13.4-35.0) 02/19/19 05:02 [place] % (Auto) 9.6 % (0.0-7.3) H 02/19/19 05:02 Eos % (Auto) 4.1 % (0.0-4.3) 02/19/19 05:02 Baso % (Auto) 0.9 % (0.0-1.8) 02/19/19 05:02 Lymph # 1.2 K/mm3 (1.2-5.4) 02/19/19 05:02 [place] # 0.4 K/mm3 (0.0-0.8) 02/19/19 05:02 Eos # 0.2 K/mm3 (0.0-0.4) 02/19/19 05:02 Baso # 0.0 K/mm3 (0.0-0.1) 02/19/19 05:02 Seg Neutrophils % 55.5 % (40.0-70.0) 02/19/19 05:02 Seg Neutrophils # 2.2 K/mm3 (1.8-7.7) 02/19/19 05:02 PT 13.5 Sec. (12.2-14.9) 02/12/19 19:57 INR 1.06 (0.87-1.13) 02/12/19 19:57 APTT 33.0 Sec. (24.2-36.6) 02/12/19 19:57 see below H 02/12/19 20:07 87 % (70-140) 02/12/19 20:07 122 % normal (57-171) 02/12/19 20:07 107 % normal (70-140) 02/12/19 20:07 Heparin Anti-Xa Level < 0.10 U.I./ml (0.3-0.7) L 02/21/19 17:58 Sodium 142 mmol/L (137-145) 02/19/19 05:02 Potassium 3.9 mmol/L (3.6-5.0) 02/19/19 05:02 Chloride 102.5 mmol/L (98-107) 02/19/19 05:02 Carbon Dioxide 25 mmol/L (22-30) 02/19/19 05:02 18 mmol/L 02/19/19 05:02 BUN 5 mg/dL (9-20) L 02/19/19 05:02 1.0 mg/dL (0.8-1.5) 02/19/19 05:02 Estimated GFR > 60 ml/min 02/19/19 05:02 5 % 02/19/19 05:02 Glucose 80 mg/dL (75-100) 02/19/19 05:02 POC Glucose 69 (70-105) L 02/22/19 22:02 4.5 % (4-6) 02/12/19 20:07 Calcium 8.8 mg/dL (8.4-10.2) 02/19/19 05:02 < 0.010 ng/mL (0.00-0.029) 02/12/19 17:30 TSH 4.040 mlU/mL (0.270-4.200) 02/16/19 07:55 Free T4 1.08 ng/dL (0.76-1.46) 02/16/19 07:55 Yellow (Yellow) 02/12/19 01:20 Clear (Clear) 02/12/19 01:20 5.0 (5.0-7.0) 02/12/19 01:20 Ur Specific [place] 1.036 (1.003-1.030) H 02/12/19 01:20 <15 mg/dl mg/dL (Negative) 02/12/19 01:20 Neg mg/dL (Negative) 02/12/19 01:20 Tr mg/dL (Negative) 02/12/19 01:20 Neg (Negative) 02/12/19 01:20 Neg (Negative) 02/12/19 01:20 Neg (Negative) 02/12/19 01:20 < 2.0 mg/dL (<2.0) 02/12/19 01:20 Ur Leukocyte Esterase Neg (Negative) 02/12/19 01:20 < 1.0 /HPF (0.0-6.0) 02/12/19 01:20 2.0 /HPF (0.0-6.0) 02/12/19 01:20 HIV-1 RNA PCR copies/ml <20 Copies/mL 02/16/19 13:19 <1.30 Log cps/mL 02/16/19 13:19 HIV 1&2 Antibody Rapid Non react (Non React) 02/14/19 15:00 Non react (Non React) 02/14/19 15:00 02/15/19 10:28 Fungal Id Prelim 02/14/19 Unknown Fungal Id Prelim 02/14/19 Unknown Flexitest 1 02/19/19 10:45 Active Medications - Current Medications Current Medications: Generic Name Dose Route Start Last Admin Trade Name Freq PRN Reason Stop Dose Admin Acetaminophen 650 mg 02/12/19 19:52 02/19/19 21:16 Tylenol PO 650 mg Q4H PRN Administration Pain MILD(1-3)/Fever >100.5/BLACK Apixaban 10 mg 02/21/19 22:00 02/22/19 22:04 Eliquis PO 10 mg Q12HR BAILEY Administration Protocol Dextrose 50 ml 02/12/19 20:01 D50w (25gm) Syringe IV PRN PRN Hypoglycemia Fluconazole 200 mg 02/14/19 17:00 02/22/19 09:43 Diflucan PO 02/23/19 23:59 200 mg QDAY BAILEY Administration Insulin Human Lispro 0 unit 02/12/19 22:00 02/22/19 22:05 Humalog SUB-Q Not Given ACHS [facility] Protocol Lisinopril 40 mg 02/13/19 10:00 02/22/19 09:43 Zestril PO 40 mg QDAY BAILEY Administration Morphine Sulfate 2 mg 02/12/19 23:02 02/22/19 22:05 Morphine IV 2 mg Q4H PRN Administration Pain, Moderate (4-6) Nicotine 14 mg 02/13/19 10:00 02/22/19 09:44 Habitrol TD 14 mg QDAY BAILEY Administration Ondansetron HCl 4 mg 02/12/19 19:52 Zofran IV Q6H PRN Nausea And Vomiting Phenytoin 200 mg 02/12/19 22:00 02/22/19 22:04 Dilantin PO 200 mg QHS BAILEY Administration Sodium Chloride 10 ml 02/12/19 22:00 02/22/19 22:05 Sodium Chloride Flush Syringe 10 Ml IV 10 ml BID BAILEY Administration Sodium Chloride 10 ml 02/12/19 19:52 02/20/19 05:17 Sodium Chloride Flush Syringe 10 Ml IV 10 ml PRN PRN Administration LINE FLUSH Nutrition/Malnutrition Assess - Dietary Evaluation Nutrition/Malnutrition Findings: Nutrition Notes Start: 02/19/19 10:38 Freq: Status: Active Protocol: Document 02/21/19 13:53 RS (Rec: 02/21/19 14:05 RS [id number]) Co-Sign 02/21/19 13:53 LP Nutrition Notes Need for Assessment generated from: LOS Initial or Follow up Reassessment Current Diagnosis Diabetes,Hypertension Other Pertinent Diagnosis Pulmonary embolism, seizures Current Diet Consistent carbohydrate diet Labs/Tests Reviewed Pertinent Medications Reviewed Height 5 ft 9 in Weight 68.6 kg [place] Body Weight (kg) 72.72 BMI 22.3 Weight change and time frame wt gain noted. 8.5% wt gain in 2 days. Subjective/Other Information Pt consulted for LOS. Pt did not eat breakfast and reports no appetite. Pt claimed ONS not delievered for several days and wants Ensure Vanilla/ [place] BID. Burn Absent Trauma Absent #1 Nutrition Diagnosis Inadequate oral intake Etiology poor appetite, As Evidenced by Signs and Symptoms pt self report poor appetite, ONS not delivered to pt Diagnosis Progress(for reassessment Continues documentation) Is patient on ventilator? No Is Patient Ambulatory and/or Out of Bed Yes REE-([facility]-ambulatory/OOB) [ [id number]] Calculation Used for Recommendations [facility] Additional Notes Protein needs: 50-62g/kg (0.8- 1.0g/kg) Fluid needs: 1ml/kcal Nutrition Intervention Change Diet Order: Continue consistent carb diet Add Supplement/Snack (indicate name/kcal Ensure Enlive vanilla or /protein ) strawberry BID Provides kCal: 700 Provides Protein (gm) 40 Goal #1 To meet at least 75% of energy and protein needs Anticipated Discharge Needs: Regular diet w/ ONS daily Follow-Up By: 02/24/19 Additional Comments F/U to assess PO intake and ONS
[2019-02-23] MEDS: DIFLUCAN PO SCH (10:04)
[2019-02-23] MEDS: ZESTRIL PO SCH (10:04)
[2019-02-23] MEDS: ELIQUIS PO SCH (10:04)
[2019-02-23] MEDS: HABITROL TD SCH (10:04)
[2019-02-23] MEDS: SODIUM CHLORIDE FLUSH SYRINGE 10 ML IV SCH (10:05)
--- NOTE | 2019-02-23 12:14 | Progress Note ---
Assessment and Plan Pulmonary Embolism Right UL cystic lesion Tobacco use disorder/Nicotine dependence- on going Pulmonary infiltrates, possibly pulmonary infarcts HYN h/o Seizure disorder Type 2 DM - hematology evaluation is appropriate - follow hypercoagulability panel - Continue with anticoagulation - BAL microbiology and cytology results -ve so far - outpatient pulmonary clinic f/up - Smoking cessation counselling - Nicotine withdrawal precautions - Currently on Diflucan for oropharynygeal candidiasis per ID. - Continue all supportive care, needs age appropriate cancer screening done - continue other care per attending/ other consultants ... discharge planning ongoing concurrently ... re-evaluate in am & prn Subjective Date of service: 02/23/19 Principal diagnosis: RUL cavitary lesion; bilateral pulmonary emboli Interval history: Patient is seen today for: RUL cavitary lesion; bilateral pulmonary emboli Seen and examined at bedside; 24hour events reviewed; nursing and respiratory care staff consulted; no adverse overnight events reported to me; resting peacefully in bed; Objective Vital Signs - 12hr 02/23/19 02/23/19 02/23/19 00:21 05:00 08:06 Temperature 98.7 F 98.5 F 98.5 F Pulse Rate 50 L 45 L 61 Respiratory 20 20 16 Rate Blood Pressure 146/77 159/88 164/86 O2 Sat by Pulse 99 95 98 Oximetry Constitutional: no acute distress, alert, other (middle aged AAM normocephalic and atraumatic) Eyes: non-icteric ENT: oropharynx moist Neck: supple, no JVD Effort: normal Ascultation: Bilateral: rhonchi, other (prolonged expiratory phase) Percussion: Bilateral: not dull Cardiovascular: regular rate and rhythm Gastrointestinal: normoactive bowel sounds, soft, non-tender, non-distended Integumentary: normal Extremities: no cyanosis, no edema, pulses normal, no ischemia or petechiae Neurologic: normal mental status, non-focal exam, pupils equal and round, motor strength normal and Psychiatric: mood appropriate, affect normal CBC and BMP: 02/20/19 Unknown 02/19/19 05:02 ABG, PT/INR, D-dimer: PT/INR, D-dimer PT 13.5 Sec. (12.2-14.9) 02/12/19 19:57 INR 1.06 (0.87-1.13) 02/12/19 19:57 Abnormal lab findings: Abnormal Labs 02/12/19 02/12/19 02/12/19 01:20 11:22 11:22 WBC MCV 95 H MCH MCHC Lymph % (Auto) 10.0 L [place] % (Auto) 9.5 H Lymph # 0.7 L Seg Neutrophils % 79.2 H Lupus Anticoagulant Heparin Anti-Xa Level Chloride BUN Glucose 105 H POC Glucose Ur Specific [place] 1.036 H 02/12/19 02/13/19 02/13/19 20:07 06:10 06:10 WBC MCV MCH 33 H MCHC 35 H Lymph % (Auto) 9.3 L [place] % (Auto) 8.2 H Lymph # 0.7 L Seg Neutrophils % 81.4 H Lupus Anticoagulant see below H Heparin Anti-Xa Level Chloride BUN 6 L Glucose 135 H POC Glucose Ur Specific Loop 02/13/19 02/13/19 02/13/19 06:10 13:20 22:46 WBC MCV MCH MCHC Lymph % (Auto) [place] % (Auto) Lymph # Seg Neutrophils % Lupus Anticoagulant Heparin Anti-Xa Level < 0.10 L < 0.10 L 0.26 L Chloride BUN Glucose POC Glucose Ur Specific Loop 02/14/19 02/14/19 02/14/19 07:26 16:28 21:25 WBC MCV MCH MCHC Lymph % (Auto) [place] % (Auto) Lymph # Seg Neutrophils % Lupus Anticoagulant Heparin Anti-Xa Level < 0.10 L Chloride BUN Glucose POC Glucose 135 H 119 H Ur Specific Loop 02/14/19 02/15/19 02/15/19 23:13 04:18 04:18 WBC MCV MCH MCHC 35 H Lymph % (Auto) [place] % (Auto) Lymph # Seg Neutrophils % Lupus Anticoagulant Heparin Anti-Xa Level 0.10 L [place]lor[place] 97.6 L BUN 6 L Glucose POC Glucose Ur Specific Loop 02/15/19 02/16/19 02/16/19 12:29 06:08 15:34 WBC MCV MCH MCHC Lymph % (Auto) [place] % (Auto) Lymph # Seg Neutrophils % Lupus Anticoagulant Heparin Anti-Xa Level 0.10 L 0.21 L Chloride BUN Glucose POC Glucose 116 H Ur Specific Loop 02/17/19 02/17/19 02/17/19 05:40 11:40 20:35 WBC MCV MCH MCHC Lymph % (Auto) [place] % (Auto) Lymph # Seg Neutrophils % Lupus Anticoagulant Heparin Anti-Xa Level 0.10 L Chloride BUN Glucose POC Glucose 146 H 142 H Ur Specific Loop 02/18/19 02/18/19 02/18/19 13:51 Unknown Unknown WBC 4.0 L MCV MCH MCHC Lymph % (Auto) [place] % (Auto) Lymph # Seg Neutrophils % Lupus Anticoagulant Heparin Anti-Xa Level 0.23 L Chloride BUN 7 L Glucose POC Glucose Ur Specific Loop 02/19/19 02/19/19 02/19/19 00:33 05:02 05:02 WBC 4.0 L MCV MCH MCHC 35 H Lymph % (Auto) [place] % (Auto) 9.6 H Lymph # Seg Neutrophils % Lupus Anticoagulant Heparin Anti-Xa Level 0.82 H Chloride BUN 5 L Glucose POC Glucose Ur Specific Loop 02/20/19 02/20/19 02/20/19 07:58 09:28 21:53 WBC MCV MCH MCHC Lymph % (Auto) [place] % (Auto) Lymph # Seg Neutrophils % Lupus Anticoagulant Heparin Anti-Xa Level 1.08 H Chloride BUN Glucose POC Glucose 68 L 123 H Ur Specific Loop 02/21/19 02/21/19 02/21/19 16:15 17:58 20:59 WBC MCV MCH MCHC Lymph % (Auto) [place] % (Auto) Lymph # Seg Neutrophils % Lupus Anticoagulant Heparin Anti-Xa Level < 0.10 L Chloride BUN Glucose POC Glucose 119 H 128 H Ur Specific Loop 02/22/19 02/22/19 11:47 22:02 WBC MCV MCH MCHC Lymph % (Auto) [place] % (Auto) Lymph # Seg Neutrophils % Lupus Anticoagulant Heparin Anti-Xa Level Chloride BUN Glucose POC Glucose 107 H 69 L Ur Specific Loop Allied health notes reviewed: nursing
[2019-02-23] MEDS: HumaLOG SUB-Q SCH (12:27)
[2019-02-28] MEDS ORDERED: ELIQUIS PO SCH (22:00)
== END 2019-02-23 12:44 | disposition home or self-care (01) | DRG 167 ==
LOC: ED 10:40 → 4A 18:35
PROVIDERS: ADMIT Internal Medicine; ATTEND Hospitalist
PROC: 0B9F8ZX Drainage of Right Lower Lung Lobe, Via Natural or Artificial Opening Endoscopic, Diagnostic (ICD-10-PCS; principal; 2019-02-14)
PROC: 0B9C8ZX Drainage of Right Upper Lung Lobe, Via Natural or Artificial Opening Endoscopic, Diagnostic (ICD-10-PCS; 2019-02-14)
DX: I26.99 Other pulmonary embolism without acute cor pulmonale (principal); J90 Pleural effusion, not elsewhere classified; B37.89 Other sites of candidiasis; I10 Essential (primary) hypertension; G40.909 Epilepsy, unspecified, not intractable, without status epilepticus; J98.4 Other disorders of lung; E11.9 Type 2 diabetes mellitus without complications; R10.9 Unspecified abdominal pain; F17.210 Nicotine dependence, cigarettes, uncomplicated; Z86.718 Personal history of other venous thrombosis and embolism; Z91.14 Patient's other noncompliance with medication regimen; Z88.8 Allergy status to other drugs, medicaments and biological substances; Z86.711 Personal history of pulmonary embolism
CPT/HCPCS: 36415; 71045; 71275; 74176; 80048; 81001; 82962; 83036; 84439; 84443; 84484; 85014; 85018; 85025; 85027; 85049; 85305; 85520; 85610; 85613; 85730; 87102; 87116; 87536; 87806; 88104; 88112; 88312; 93005; 93010; 93306; 93970; 99406; G0378; J1170; J1644; J2270; J2405; J2704; J3010; J7030; Q9967

== ENCOUNTER 2021-12-26 10:29 | Observation (INO) | payer MEDICAID ==
--- NOTE | 2021-12-26 11:42 | Emergency Department Report ---
HPI - General Chief Complaint: Hypoglycemia Time Seen by Provider: 12/26/21 11:24 - HPI HPI: Room 19 The patient is a 61-year-old male present with a chief complaint of hyperglycemia. The patient states he was walking when he passed out. Patient states when he awakened he could not get up. EMS was called and the patient was found to be hypoglycemic with a glucose of 27. Patient states he has not eaten anything today and his last meal occurred last night. ED Past Medical Hx - Past Medical History Hx Hypertension: Yes Hx Diabetes: Yes Hx Seizures: Yes - Surgical History Additional Surgical History: back surg. - Family History Family history: no significant - Social History Smoking Status: Current Every Day Smoker (1/7 pack/day) Substance Use Type: None (Denies illicit drug use), Alcohol (Moderate) - Medications Home Medications: Home Medications Medication Instructions Recorded Confirmed Last Taken Type Ibuprofen [Motrin 600 MG tab] 600 mg PO Q8H PRN #20 tablet 01/12/17 11/16/21 02/02/19 Rx predniSONE [Deltasone] 20 mg PO QDAY 02/12/19 11/16/21 11/15/21 09:00 History Fluconazole [Diflucan TAB] 200 mg PO QDAY #10 tablet 02/22/19 11/16/21 11/15/21 09:00 Rx Folic Acid 1 mg PO DAILY #30 10/19/21 11/16/21 11/15/21 09:00 Rx Apixaban [Eliquis] 5 mg PO BID #60 tablet 11/17/21 Unknown Rx AtorvaSTATin [Lipitor] 40 mg PO QHS #30 tablet 11/17/21 Unknown Rx Nicotine [Habitrol] 14 mg TD QDAY #30 patch 11/17/21 Unknown Rx Pantoprazole [Protonix TAB] 40 mg PO QDAY #30 tablet 11/17/21 Unknown Rx Thiamine HCl [Vitamin B-1] 100 mg PO DAILY #30 11/17/21 Unknown Rx levETIRAcetam [Keppra TAB] 750 mg PO BID #60 11/17/21 Unknown Rx lisinopriL [Zestril TAB] 40 mg PO QDAY 30 Days tablet 11/17/21 Unknown Rx ED Review of Systems ROS: Stated complaint: LOW BLOOD SUGAR Other details as noted in HPI Constitutional: no symptoms reported Eyes: denies: eye pain ENT: denies: throat pain Respiratory: no symptoms reported Cardiovascular: denies: chest pain Endocrine: no symptoms reported Gastrointestinal: denies: abdominal pain Genitourinary: denies: dysuria Musculoskeletal: denies: back pain Neurological: denies: headache Physical Exam - Physical Exam Vital Signs: Vital Signs 12/26/21 10:47 Temperature 98.4 F Pulse Rate 73 Respiratory 16 Rate Blood Pressure 145/85 [Left] O2 Sat by Pulse 98 Oximetry Physical Exam: GENERAL: The patient is well-developed well-nourished male lying on stretcher not appearing to be in acute distress. [] HEENT: Normocephalic. Atraumatic. Extraocular motions are intact. Patient has moist mucous membranes. NECK: Supple. Trachea midline CHEST/LUNGS: Clear to auscultation. There is no respiratory distress noted. HEART/CARDIOVASCULAR: Regular. There is no tachycardia. There is no gallop rub or murmur. ABDOMEN: Abdomen is soft, nontender. Patient has normal bowel sounds. There is no abdominal distention. SKIN: There is no rash. There is no edema. There is no diaphoresis. NEURO: The patient is awake, alert, and oriented. The patient is cooperative. The patient has no focal neurologic deficits. The patient has normal speech. GCS 15 MUSCULOSKELETAL: There is no evidence of acute injury. ED Course Vital Signs 12/26/21 10:47 Temperature 98.4 F Pulse Rate 73 Respiratory 16 Rate Blood Pressure 145/85 [Left] O2 Sat by Pulse 98 Oximetry ED Medical Decision Making - Lab Data Result diagrams: 12/26/21 11:58 12/26/21 11:58 Laboratory Tests 12/26/21 12/26/21 12/26/21 11:58 11:58 11:58 WBC 7.8 RBC 4.60 Hgb 15.1 Hct 45.7 H MCV 99 H MCH 33 H MCHC 33 RDW 16.0 H Plt Count 163 Add Manual Diff Complete Total Counted 100 Seg Neuts % (Manual) 90.0 H Band Neutrophils % 0 Lymphocytes % (Manual) 3.0 L Reactive Lymphs % (Man) 1.0 Monocytes % (Manual) 6.0 Eosinophils % (Manual) 0 Basophils % (Manual) 0 Metamyelocytes % 0 Myelocytes % 0 Promyelocytes % 0 Blast Cells % 0 Nucleated RBC % Not Reportable Seg Neutrophils # Man 7.0 Band Neutrophils # 0.0 Lymphocytes # (Manual) 0.2 L Abs React Lymphs (Man) 0.1 Monocytes # (Manual) 0.5 Eosinophils # (Manual) 0.0 Basophils # (Manual) 0.0 Metamyelocytes # 0.0 Myelocytes # 0.0 Promyelocytes # 0.0 Blast Cells # 0.0 WBC Morphology Not Reportable Hypersegmented Neuts Not Reportable Hyposegmented Neuts 1+ Hypogranular Neuts Not Reportable Smudge Cells Not Reportable Toxic Granulation Not Reportable Toxic Vacuolation Not Reportable Dohle Bodies Not Reportable Pelger-Huet Anomaly Not Reportable Kristi Rods Not Reportable Platelet Estimate Consistent w auto Clumped Platelets Not Reportable Plt Clumps, EDTA Not Reportable Large Platelets Rare Giant Platelets Not Reportable Platelet Satelliting Not Reportable Plt Morphology Comment Not Reportable RBC Morphology Not Reportable Dimorphic RBCs Not Reportable Polychromasia Not Reportable Hypochromasia Not Reportable Poikilocytosis 1+ Anisocytosis Few Microcytosis Not Reportable Macrocytosis Not Reportable Spherocytes Rare Pappenheimer Bodies Not Reportable Sickle Cells Not Reportable Target Cells Rare Tear Drop Cells Not Reportable Ovalocytes Not Reportable Stomatocytes Few Helmet Cells Not Reportable [place] Bodies Not Reportable [place] Rings Not Reportable [place] Cells Not Reportable Bite Cells Not Reportable Crenated Cell Not Reportable Elliptocytes Not Reportable Acanthocytes (Spur) Not Reportable Rouleaux Not Reportable Hemoglobin C Crystals Not Reportable Schistocytes Not Reportable Malaria parasites Not Reportable Bobby Bodies Not Reportable Hem Pathologist Commnt No Sodium 136 L Potassium 5.0 Chloride 93.5 L Carbon Dioxide 14 L Anion Gap 34 BUN 15 Creatinine 1.1 Estimated GFR > 60 BUN/Creatinine Ratio 14 Glucose 158 H Calcium 9.5 Total Bilirubin 0.50 AST 219 H ALT 74 H Alkaline Phosphatase 81 Total Creatine Kinase 96 CK-MB (CK-2) 4.0 CK-MB (CK-2) Rel Index 4.1 H Troponin T < 0.010 Total Protein 8.6 H Albumin 5.3 H Albumin/Globulin Ratio 1.6 - Differential Diagnosis Hypoglycemia Critical care attestation.: If time is entered above; I have spent that time in minutes in the direct care of this critically ill patient, excluding procedure time. ED Disposition Clinical Impression: Hypoglycemia Disposition: 09 ADMITTED INPATIENT Is pt being admited?: Yes Does the pt Need Aspirin: Yes Condition: Stable Time of Disposition: 14:07 (Care transferred to hospitalist (Dr. Cornejo))
[2021-12-26 12:33] LABS: Alanine Aminotransferase 74 units/L (7-56); Albumin 5.3 g/dL (3.9-5); BUN/Creatinine Ratio 14; Blood Urea Nitrogen 15 mg/dL (9-20); Calcium 9.5 mg/dL (8.4-10.2); Hematocrit 45.7 % (35.5-45.6); Hemoglobin 15.1 gm/dl (11.8-15.2); Hemolysis Index 10; Mean Corpuscular HGB Conc 33 % (32-34); Mean Corpuscular Volume 99 fl (84-94); Mean Platelet Volume 8.7 fl (6-12); Platelet Count 163 K/mm3 (140-440)
[2021-12-26] MEDS ORDERED: cloNIDine 0.1 MG TAB PO ONE (12:54)
[2021-12-26 13:05] LABS: Basophils % (Manual) 0 % (0.0-1.8); Eosinophils % (Manual) 0 % (0.0-4.3); Total Cells Counted 100
[2021-12-26 13:08] LABS: Anisocytosis Few; Poikilocytosis 1+; Spherocytes Rare; Stomatocytes Few; Target Cells Rare
[2021-12-26 13:09] LABS: Large Platelets Rare; Platelet Estimate Consistent w Auto
--- NOTE | 2021-12-26 17:04 | History and Physical Report ---
History of Present Illness Date of examination: 12/26/21 Date of admission: 12/26/2021 Chief complaint: Passed out in a.m. History of present illness: 61-year-old male with history of hypertension, seizure disorder, nicotine dependence and GERD apparently he was walking. Patient states that he could not get up after waking up. EMS was called and patient was found to be hypoglycemic with a glucose level of 27. Patient states he has not been eating anything today and his last meal was last night. No fever or chills. No cough. No shortness of breath. - Past Medical History --Hypertension: Yes --Diabetes: Yes --Seizures: Yes - Surgical History Additional Surgical History: back surg. - Family History Family history: no significant - Social History Smoking Status: Current Every Day Smoker (1/7 pack/day) Substance Use Type: None (Denies illicit drug use), Alcohol (Moderate) - Medications Home Medications: Home Medications Medication Instructions Recorded Confirmed Last Taken Type Ibuprofen [Motrin 600 MG tab] 600 mg PO Q8H PRN #20 tablet 01/12/17 11/16/21 02/02/19 Rx predniSONE [Deltasone] 20 mg PO QDAY 02/12/19 11/16/21 11/15/21 09:00 History Fluconazole [Diflucan TAB] 200 mg PO QDAY #10 tablet 02/22/19 11/16/21 11/15/21 09:00 Rx Folic Acid 1 mg PO DAILY #30 10/19/21 11/16/21 11/15/21 09:00 Rx Apixaban [Eliquis] 5 mg PO BID #60 tablet 11/17/21 Unknown Rx AtorvaSTATin [Lipitor] 40 mg PO QHS #30 tablet 11/17/21 Unknown Rx Nicotine [Habitrol] 14 mg TD QDAY #30 patch 11/17/21 Unknown Rx Pantoprazole [Protonix TAB] 40 mg PO QDAY #30 tablet 11/17/21 Unknown Rx Thiamine HCl [Vitamin B-1] 100 mg PO DAILY #30 11/17/21 Unknown Rx levETIRAcetam [Keppra TAB] 750 mg PO BID #60 11/17/21 Unknown Rx lisinopriL [Zestril TAB] 40 mg PO QDAY 30 Days tablet 11/17/21 Unknown Rx Review of Systems ROS: Stated complaint: LOW BLOOD SUGAR Other details as noted in HPI Constitutional: no symptoms reported Eyes: denies: eye pain ENT: denies: throat pain Respiratory: no symptoms reported Cardiovascular: denies: chest pain Endocrine: no symptoms reported Gastrointestinal: denies: abdominal pain Genitourinary: denies: dysuria Musculoskeletal: denies: back pain Neurological: denies: headache hyperlipidemia hypertension Medications and Allergies Allergies Allergy/AdvReac Type Severity Reaction Status Date / Time hydrocodone bitartrate AdvReac Nausea Verified 10/12/21 16:44 [From Lortab] propoxyphene napsylate AdvReac Nausea Verified 10/12/21 16:44 [From Darvocet-N 100] Home Medications Medication Instructions Recorded Confirmed Last Taken Type Ibuprofen [Motrin 600 MG tab] 600 mg PO Q8H PRN #20 tablet 01/12/17 11/16/21 02/02/19 Rx predniSONE [Deltasone] 20 mg PO QDAY 02/12/19 11/16/21 11/15/21 09:00 History Fluconazole [Diflucan TAB] 200 mg PO QDAY #10 tablet 02/22/19 11/16/21 11/15/21 09:00 Rx Folic Acid 1 mg PO DAILY #30 10/19/21 11/16/21 11/15/21 09:00 Rx Apixaban [Eliquis] 5 mg PO BID #60 tablet 11/17/21 Unknown Rx AtorvaSTATin [Lipitor] 40 mg PO QHS #30 tablet 11/17/21 Unknown Rx Nicotine [Habitrol] 14 mg TD QDAY #30 patch 11/17/21 Unknown Rx Pantoprazole [Protonix TAB] 40 mg PO QDAY #30 tablet 11/17/21 Unknown Rx Thiamine HCl [Vitamin B-1] 100 mg PO DAILY #30 11/17/21 Unknown Rx levETIRAcetam [Keppra TAB] 750 mg PO BID #60 11/17/21 Unknown Rx lisinopriL [Zestril TAB] 40 mg PO QDAY 30 Days tablet 11/17/21 Unknown Rx Exam - Constitutional Vitals: Temp Pulse Resp BP Pulse Ox 98.4 F 67 14 151/96 100 12/26/21 10:47 12/26/21 16:01 12/26/21 16:01 12/26/21 16:01 12/26/21 16:01 General appearance: Present: no acute distress, well-nourished - EENT Eyes: Present: PERRL ENT: hearing intact, clear oral mucosa - Neck Neck: Present: supple, normal ROM - Respiratory Respiratory effort: normal Respiratory: bilateral: CTA - Cardiovascular Heart rate: 78 Rhythm: regular Heart Sounds: Present: S1 & S2. Absent: rub, click - Extremities Extremities: pulses symmetrical, No edema Peripheral Pulses: within normal limits - Abdominal General gastrointestinal: Present: soft, non-tender, non-distended, normal bowel sounds Male genitourinary: Present: normal - Integumentary Integumentary: Present: clear, warm, dry - Musculoskeletal Musculoskeletal: gait normal, strength equal bilaterally - Psychiatric Psychiatric: appropriate mood/affect, intact judgment & insight - Neurologic Neurologic: CNII-XII intact, moves all extremities HEART Score - HEART Score History: Moderately suspicious Age: > 65 Risk factors: 1-2 risk factors Troponin: Troponin T < 0.010 ng/mL (0.00-0.029) 12/26/21 11:58 Troponin: 1-3x normal limit - Critical Actions Critical Actions: 4-6 pts:12-16.6% risk of adverse cardiac event. Should be admitted (Of) Results - Labs CBC & Chem 7: 12/26/21 11:58 12/26/21 11:58 Labs: Laboratory Last Values WBC 7.8 K/mm3 (4.5-11.0) 12/26/21 11:58 RBC 4.60 M/mm3 (3.65-5.03) 12/26/21 11:58 Hgb 15.1 gm/dl (11.8-15.2) 12/26/21 11:58 Hct 45.7 % (35.5-45.6) H 12/26/21 11:58 MCV 99 fl (84-94) H 12/26/21 11:58 MCH 33 pg (28-32) H 12/26/21 11:58 MCHC 33 % (32-34) 12/26/21 11:58 RDW 16.0 % (13.2-15.2) H 12/26/21 11:58 Plt Count 163 K/mm3 (140-440) 12/26/21 11:58 Add Manual Diff Complete 12/26/21 11:58 Total Counted 100 12/26/21 11:58 Seg Neuts % (Manual) 90.0 % (40.0-70.0) H 12/26/21 11:58 Band Neutrophils % 0 % 12/26/21 11:58 Lymphocytes % (Manual) 3.0 % (13.4-35.0) L 12/26/21 11:58 Reactive Lymphs % (Man) 1.0 % 12/26/21 11:58 Monocytes % (Manual) 6.0 % (0.0-7.3) 12/26/21 11:58 Eosinophils % (Manual) 0 % (0.0-4.3) 12/26/21 11:58 Basophils % (Manual) 0 % (0.0-1.8) 12/26/21 11:58 Metamyelocytes % 0 % 12/26/21 11:58 Myelocytes % 0 % 12/26/21 11:58 Promyelocytes % 0 % 12/26/21 11:58 Blast Cells % 0 % 12/26/21 11:58 Nucleated RBC % Not Reportable 12/26/21 11:58 Seg Neutrophils # Man 7.0 K/mm3 (1.8-7.7) 12/26/21 11:58 Band Neutrophils # 0.0 K/mm3 12/26/21 11:58 Lymphocytes # (Manual) 0.2 K/mm3 (1.2-5.4) L 12/26/21 11:58 Abs React Lymphs (Man) 0.1 K/mm3 12/26/21 11:58 Monocytes # (Manual) 0.5 K/mm3 (0.0-0.8) 12/26/21 11:58 Eosinophils # (Manual) 0.0 K/mm3 (0.0-0.4) 12/26/21 11:58 Basophils # (Manual) 0.0 K/mm3 (0.0-0.1) 12/26/21 11:58 Metamyelocytes # 0.0 K/mm3 12/26/21 11:58 Myelocytes # 0.0 K/mm3 12/26/21 11:58 Promyelocytes # 0.0 K/mm3 12/26/21 11:58 Blast Cells # 0.0 K/mm3 12/26/21 11:58 WBC Morphology Not Reportable 12/26/21 11:58 Hypersegmented Neuts Not Reportable 12/26/21 11:58 Hyposegmented Neuts 1+ 12/26/21 11:58 Hypogranular Neuts Not Reportable 12/26/21 11:58 Smudge Cells Not Reportable 12/26/21 11:58 Toxic Granulation Not Reportable 12/26/21 11:58 Toxic Vacuolation Not Reportable 12/26/21 11:58 Dohle Bodies Not Reportable 12/26/21 11:58 Pelger-Huet Anomaly Not Reportable 12/26/21 11:58 Kristi Rods Not Reportable 12/26/21 11:58 Platelet Estimate Consistent w auto 12/26/21 11:58 Clumped Platelets Not Reportable 12/26/21 11:58 Plt Clumps, EDTA Not Reportable 12/26/21 11:58 Large Platelets Rare 12/26/21 11:58 Giant Platelets Not Reportable 12/26/21 11:58 Platelet Satelliting Not Reportable 12/26/21 11:58 Plt Morphology Comment Not Reportable 12/26/21 11:58 RBC Morphology Not Reportable 12/26/21 11:58 Dimorphic RBCs Not Reportable 12/26/21 11:58 Polychromasia Not Reportable 12/26/21 11:58 Hypochromasia Not Reportable 12/26/21 11:58 Poikilocytosis 1+ 12/26/21 11:58 Anisocytosis Few 12/26/21 11:58 Microcytosis Not Reportable 12/26/21 11:58 Macrocytosis Not Reportable 12/26/21 11:58 Spherocytes Rare 12/26/21 11:58 Pappenheimer Bodies Not Reportable 12/26/21 11:58 Sickle Cells Not Reportable 12/26/21 11:58 Target Cells Rare 12/26/21 11:58 Tear Drop Cells Not Reportable 12/26/21 11:58 Ovalocytes Not Reportable 12/26/21 11:58 Stomatocytes Few 12/26/21 11:58 Helmet Cells Not Reportable 12/26/21 11:58 [place]izu-[place] Bodies Not Reportable 12/26/21 11:58 [place] Rings Not Reportable 12/26/21 11:58 Mary Cells Not Reportable 12/26/21 11:58 Bite Cells Not Reportable 12/26/21 11:58 Crenated Cell Not Reportable 12/26/21 11:58 Elliptocytes Not Reportable 12/26/21 11:58 Acanthocytes (Spur) Not Reportable 12/26/21 11:58 Rouleaux Not Reportable 12/26/21 11:58 Hemoglobin C Crystals Not Reportable 12/26/21 11:58 Schistocytes Not Reportable 12/26/21 11:58 Malaria parasites Not Reportable 12/26/21 11:58 Bobby Bodies Not Reportable 12/26/21 11:58 Hem Pathologist Commnt No 12/26/21 11:58 Sodium 136 mmol/L (137-145) L 12/26/21 11:58 Potassium 5.0 mmol/L (3.6-5.0) 12/26/21 11:58 Chloride 93.5 mmol/L (98-107) L 12/26/21 11:58 Carbon Dioxide 14 mmol/L (22-30) L 12/26/21 11:58 Anion Gap 34 mmol/L 12/26/21 11:58 BUN 15 mg/dL (9-20) 12/26/21 11:58 Creatinine 1.1 mg/dL (0.8-1.3) 12/26/21 11:58 Estimated GFR > 60 ml/min 12/26/21 11:58 BUN/Creatinine Ratio 14 % 12/26/21 11:58 Glucose 158 mg/dL (75-100) H 12/26/21 11:58 Calcium 9.5 mg/dL (8.4-10.2) 12/26/21 11:58 Total Bilirubin 0.50 mg/dL (0.1-1.2) 12/26/21 11:58 AST 219 units/L (5-40) H 12/26/21 11:58 ALT 74 units/L (7-56) H 12/26/21 11:58 Alkaline Phosphatase 81 units/L (35-129) 12/26/21 11:58 Total Creatine Kinase 96 units/L (55-170) 12/26/21 11:58 CK-MB (CK-2) 4.0 ng/mL (0.0-4.0) 12/26/21 11:58 CK-MB (CK-2) Rel Index 4.1 (0-4) H 12/26/21 11:58 Troponin T < 0.010 ng/mL (0.00-0.029) 12/26/21 11:58 Total Protein 8.6 g/dL (6.3-8.2) H 12/26/21 11:58 Albumin 5.3 g/dL (3.9-5) H 12/26/21 11:58 Albumin/Globulin Ratio 1.6 % 12/26/21 11:58 Short CBC 12/26/21 Range/Units 11:58 WBC 7.8 (4.5-11.0) K/mm3 Hgb 15.1 (11.8-15.2) gm/dl Hct 45.7 H (35.5-45.6) % Plt Count 163 (140-440) K/mm3 BMP 12/26/21 11:58 Sodium 136 L Potassium 5.0 Chloride 93.5 L Carbon Dioxide 14 L BUN 15 Creatinine 1.1 Glucose 158 H Calcium 9.5 Cardiac Enzymes 12/26/21 Range/Units 11:58 Total Creatine Kinase 96 (55-170) units/L CK-MB (CK-2) 4.0 (0.0-4.0) ng/mL Troponin T < 0.010 (0.00-0.029) ng/mL Liver Function 12/26/21 Range/Units 11:58 Total Bilirubin 0.50 (0.1-1.2) mg/dL AST 219 H (5-40) units/L ALT 74 H (7-56) units/L Alkaline Phosphatase 81 (35-129) units/L Albumin 5.3 H (3.9-5) g/dL Assessment and Plan Advance Directives: Yes (Full code) VTE prophylaxis?: Chemical (Full code) Plan of care discussed with patient/family: Yes - Patient Problems (1) Syncope and collapse Current Visit: Yes Status: Acute Plan to address problem: Patient apparently passed out secondary to low blood glucose of 27. No chest pain. No past syncope's. No chest pain. Syncope work-up Also troponins and cardiology consult in a.m. (2) HTN (hypertension) Current Visit: Yes Status: Chronic Qualifiers: Hypertension type: primary hypertension Qualified Code(s): I10 - Essential (primary) hypertension Plan to address problem: Continue with antihypertensives and adjust medications as necessary (3) Hyperlipidemia Current Visit: Yes Status: Chronic Qualifiers: Hyperlipidemia type: mixed hyperlipidemia Qualified Code(s): E78.2 - Mixed hyperlipidemia Plan to address problem: Continue statins (4) DVT prophylaxis Current Visit: No Status: Acute Plan to address problem: On anticoagulation GI prophylaxis (5) Advance care planning Current Visit: Yes Status: Acute Plan to address problem: Disease education conducted care plan discussed diagnosis discussed prognosis discussed patient is full code patient acknowledges understanding and agreement with care plan +30 minutes.
[2021-12-26] MEDS ORDERED: ONDANSETRON 4 MG/2 ML INJ IV PRN (17:05)
[2021-12-26] MEDS ORDERED: METOCLOPRAMIDE 10 MG/2 ML INJ IV PRN (17:05)
[2021-12-26] MEDS ORDERED: oxyCODONE /ACETAMINOPHEN 5-325MG TAB PO PRN (17:05)
[2021-12-26] MEDS ORDERED: ACETAMINOPHEN 325 MG TAB PO PRN (17:05)
[2021-12-26] MEDS ORDERED: SODIUM CHLORIDE 0.9% 1000 ML 1,000 ML IV SCH (17:15)
[2021-12-26] MEDS ORDERED: DEXTROSE 50% IN WATER (25GM) 50 ML SYRINGE IV PRN (23:51)
[2021-12-27] MEDS: HEPARIN 5,000 UNIT/1 ML VIAL SUB-Q SCH ×2 (00:23→09:40)
[2021-12-27] MEDS: FAMOTIDINE 20 MG/2 ML INJ IV SCH ×2 (00:23→09:40)
[2021-12-27] MEDS: MORPHINE 2 MG/1 ML INJ IV PRN ×2 (05:20→14:10)
[2021-12-27 06:34] LABS: Basophils % (Auto) 0.4 % (0.0-1.8); Eosinophils % (Auto) 0.7 % (0.0-4.3); Hemoglobin 14.2 gm/dl (11.8-15.2); Lymphocytes % (Auto) 24.6 % (13.4-35.0); Mean Corpuscular HGB Conc 35 % (32-34); Mean Corpuscular Volume 96 fl (84-94); Monocytes # (Auto) 0.5 K/mm3 (0.0-0.8); Monocytes % (Auto) 11.7 % (0.0-7.3); Platelet Count 124 K/mm3 (140-440); Red Blood Count 4.26 M/mm3 (3.65-5.03); Red Cell Distribution Width 15.7 % (13.2-15.2)
[2021-12-27 06:54] LABS: Alanine Aminotransferase 121 units/L (7-56); Albumin 4.5 g/dL (3.9-5); BUN/Creatinine Ratio 17; Blood Urea Nitrogen 17 mg/dL (9-20); Calcium 9.4 mg/dL (8.4-10.2); Hemolysis Index 5
[2021-12-27] MEDS: INSULIN LISPRO 100 UNIT/ML SUB-Q SCH ×2 (08:28→12:32)
[2021-12-27 11:20] VITALS: BP 145/94
--- NOTE | 2021-12-27 13:25 | Vascular Lab Report ---
VL carotid duplex BILAT INDICATION / CLINICAL INFORMATION: Syncope COMPARISON: None available. FINDINGS: RIGHT CAROTID: - CCA velocity: 87 cm/sec. - ICA peak systolic velocity: 101 cm/sec. - ICA/CCA PSV Ratio: Less than 2 Right Vertebral Artery: Antegrade flow. LEFT CAROTID: - CCA velocity: 95 cm/sec. - ICA peak systolic velocity: 116 cm/sec. - ICA/CCA PSV Ratio: Less than 2 Left Vertebral Artery: Antegrade flow. IMPRESSION: 1. No occlusion or hemodynamically significant stenosis of the bilateral carotid arteries. Velocity criteria are extrapolated from diameter data as defined by the Society of Radiologists in Ul trasound Consensus Conference, Radiology 2003; 229;340-346. NO STENOSIS (NORMAL) * Plaque = none; ICA PSV < 125 cm/sec; ICA/CCA PSV Ratio < 2.0 <50% STENOSIS * Plaque < 50%; ICA PSV < 125 cm/sec; ICA/CCA PSV Ratio < 2.0 50-69% STENOSIS * Plaque > 50%; ICA PSV = 125-230 cm/sec; ICA/CCA PSV Ratio = 2.0-4.0 >70% BUT <100% STENOSIS * Plaque > 50%; ICA PSV > 230 cm/sec; ICA/CCA PSV Ratio > 4.0 NEAR OCCLUSION * Plaque = visible lumen; ICA PSV = high/low/none; ICA/CCA PSV Ratio = variable TOTAL OCCLUSION * Plaque = no lumen; ICA PSV = none; ICA/CCA PSV Ratio = N/A Signer Name: Levi Palmer MD Signed: 12/27/2021 1:20 PM Workstation Name: [employer] [facility]dn[id number]
--- NOTE | 2021-12-27 15:43 | Discharge Summary ---
Providers - Providers Date of Admission: 12/26/21 17:05 Date of discharge: 12/27/21 Attending physician: CHEN GODOY Primary care physician: [facility] [employer] Hospitalization Condition: Stable Hospital course: Passed out in a.m. History of present illness: 61-year-old male with history of hypertension, seizure disorder, nicotine dependence and GERD apparently he was walking. Patient states that he could not get up after waking up. EMS was called and patient was found to be hypoglycemic with a glucose level of 27. Patient states he has not been eating anything today and his last meal was last night. No fever or chills. No cough. No shortness of breath. Patient feels better Carotid duplex scan and echocardiogram are normal Dehydration orthostatic hypotension Drink Gatorade next less exposure to heat Assessment and Plan Advance Directives: Yes (Full code) VTE prophylaxis?: Chemical (Full code) Plan of care discussed with patient/family: Yes - Patient Problems (1) Syncope and collapse Current Visit: Yes Status: Acute Plan to address problem: Secondary to dehydration and volume depletion Gatorade or Powerade as outpatient (2) HTN (hypertension) Current Visit: Yes Status: Chronic Qualifiers: Hypertension type: primary hypertension Qualified Code(s): I10 - Essential (primary) hypertension Plan to address problem: Blood pressure well controlled (3) Hyperlipidemia Current Visit: Yes Status: Chronic Qualifiers: Hyperlipidemia type: mixed hyperlipidemia Qualified Code(s): E78.2 - Mixed hyperlipidemia Plan to address problem: Continue statins (4) DVT prophylaxis Current Visit: No Status: Acute Plan to address problem: On anticoagulation GI prophylaxis (5) Advance care planning Current Visit: Yes Status: Acute Plan to address problem: Disease education conducted care plan discussed diagnosis discussed prognosis discussed patient is full code patient acknowledges understanding and agreement with care plan +30 minutes. Disposition: 01 HOME / SELF CARE / HOMELESS Final Discharge Diagnosis (Prints w/discharge instructions): Syncope and collapse. Hypertension. Hyperlipidemia Time spent for discharge: 35 minutes - Discharge Diagnoses (1) Syncope and collapse Status: Acute (2) HTN (hypertension) Status: Chronic Qualifiers: Hypertension type: primary hypertension Qualified Code(s): I10 - Essential (primary) hypertension (3) Hyperlipidemia Status: Chronic Qualifiers: Hyperlipidemia type: mixed hyperlipidemia Qualified Code(s): E78.2 - Mixed hyperlipidemia (4) DVT prophylaxis Status: Acute (5) Advance care planning Status: Acute Core Measure Documentation - Palliative Care Palliative Care/ Comfort Measures: Not Applicable - Core Measures Any of the following diagnoses?: none Exam - Constitutional Vitals: Temp Pulse Resp BP Pulse Ox 98.0 F 54 L 18 145/94 98 12/27/21 08:22 12/27/21 08:56 12/27/21 08:22 12/27/21 08:22 12/27/21 08:56 General appearance: Present: no acute distress, well-nourished - EENT Eyes: Present: PERRL ENT: hearing intact, clear oral mucosa - Neck Neck: Present: supple, normal ROM - Respiratory Respiratory effort: normal Respiratory: bilateral: CTA - Cardiovascular Heart rate: 78 Rhythm: regular Heart Sounds: Present: S1 & S2. Absent: rub, click - Extremities Extremities: pulses symmetrical, No edema Peripheral Pulses: within normal limits - Abdominal General gastrointestinal: Present: soft, non-tender, non-distended, normal bowel sounds Male genitourinary: Present: normal - Integumentary Integumentary: Present: clear, warm, dry - Musculoskeletal Musculoskeletal: gait normal, strength equal bilaterally - Psychiatric Psychiatric: appropriate mood/affect, intact judgment & insight - Neurologic Neurologic: CNII-XII intact, moves all extremities Plan Diet: regular Follow up with: PRIMARY CARE, [Primary Care Provider] - 7 Days
[2021-12-27] MEDS ORDERED: IBUPROFEN 600 MG TAB PO PRN (15:47)
[2021-12-27] MEDS ORDERED: NON-FORMULARY EACH (Thiamine Hcl [Vitamin B-1] 100 MG Tablet) PO SCH (16:00)
[2021-12-27] MEDS ORDERED: PANTOPRAZOLE 40 MG TAB PO SCH (16:00)
[2021-12-27] MEDS ORDERED: predniSONE 20 MG TAB PO SCH (16:00)
[2021-12-27] MEDS ORDERED: FOLIC ACID 1 MG TAB PO SCH (17:00)
[2021-12-27] MEDS ORDERED: THIAMINE 100 MG TAB PO SCH (18:00)
[2021-12-27] MEDS ORDERED: levETIRAcetam 500 MG TAB PO SCH (22:00)
[2021-12-27] MEDS ORDERED: NON-FORMULARY EACH (Levetiracetam [Keppra Tab] 750 MG Tablet) PO SCH (22:00)
[2021-12-27] MEDS ORDERED: NON-FORMULARY EACH (Apixaban 5 MG Tablet) PO SCH (22:00)
[2021-12-28] MEDS ORDERED: FLUCONAZOLE 200 MG TAB PO SCH (10:00)
[2021-12-28] MEDS ORDERED: LISINOPRIL 40 MG TAB PO SCH (10:00)
[2021-12-28] MEDS ORDERED: NICOTINE 14 MG/24 HR PATCH TD SCH (10:00)
== END 2021-12-27 18:05 | disposition home or self-care (01) ==
LOC: ED 10:29 → INTOOBSV 17:05 → 4A 17:05
PROVIDERS: ADMIT Internal Medicine; ATTEND Internal Medicine
DX: R55 Syncope and collapse (principal); I10 Essential (primary) hypertension; E78.5 Hyperlipidemia, unspecified; R56.9 Unspecified convulsions; E78.2 Mixed hyperlipidemia; E16.2 Hypoglycemia, unspecified; F17.210 Nicotine dependence, cigarettes, uncomplicated; Z79.899 Other long term (current) drug therapy; Z98.890 Other specified postprocedural states
CPT/HCPCS: 36415; 80053; 82550; 82553; 82962; 84484; 85025; 93880; 96372; 96374; 96375; 96376; 99284; 99406; G0378; J1644; J2270; J3490; 85007